=== PATIENT | male | born 1935 | race African-American/Black ===

== ENCOUNTER 2023-12-01 15:39 | Emergency (ER) | payer MEDICARE ==
--- OUTSIDE RECORDS SUMMARY | 2023-12-01 15:44 | XMS REPORT | Continuity of Care Document ---
Author Name Unknown Address [address] [facility] [address] [place] [address] [facility] thconnect Address [address] [facility] [address] [place] [address] Care Team Providers Care Filling Operator Name Role Phone Bertin Wisdom Primary Care Physician [phone] Portillo Donahue Attending Clinician Unavailable Severo Osborne Attending Clinician Unavailable MOISE HERNANDEZ Attending Clinician Unavailable RUSS HULL Attending Clinician Unavailable FARHAT ROSAS Attending Clinician Unavailable Farhat Rosas MD Attending Clinician [phone] OPHELIA MCFADDEN Attending Clinician UnaOPHELIA Juarez Attending Clinician Unavailable 2, [facility] Attending Clinician Unavailable Doctor Unassigned, [place] Attending Clinician U hannahailJessica Minor Attending Clinician Unavailable Mayelin Lucas LVN Attending Clinician Unavailab RUSS Palencia M.D. Attending Clinician Unavailable STEFANY Attending Clinician Unavailable Jesus Coleman Attending Clinician [phone] Severo Osborne Admitting Clinician Unavailable Physician, No Primary or Family Admitting Clinic vasu Unavailable Jessica Ibarra Admitting Clinician Unavailable UNDEFINED Admitting Clinician Unavailable STEFANY Admitting Clinician Unavailable Payers Payer Name Policy Type Policy Number Effective Date Expirati on Date Source [facility] MEDICARE COMPLETE [id number] 2018 00:00:00 2018 00:00:[address] [facility] WELLMED [id number] 2020 00:00:00 [facility] MCR Advantage (HMO-POS) 53 [id number] 2023 00:00:00 [facility] WELLMED/AAR MEDICARE ADVANTAGE [id number] 2020 00:00:00 [facility] [id number] Problems Condition Name Condition Details Condition Category Status Onset Date Resolution Date Last Treatment Date Treating Clinician Comments Source Elevated carcinoemb ryonic antigen (CEA) Elevated carcinoemb ryonic antigen (CEA) Disease Active 5-19 00:00: 00 [facility] Primary hypertensi on Primary hypertensi on Disease Active 04-28 00:00: 00 [facility] Type 2 diabetes mellitus without complicati on, without long-term current use of insulin Type 2 diabetes mellitus without complicati on, without long-term current use of insulin Disease Active 04-28 00:00: 00 [facility] Mixed hyperlipid emia Mixed hyperlipid emia Disease Active 04-28 00:00: 00 [facility] H/O: CVA (cerebrova scular accident) H/O: CVA (cerebrova scular accident) Disease Active 04-28 00:00: 00 [facility] CKD (chronic kidney disease), stage IV CKD (chronic kidney disease), stage IV Disease Active - 00:00: 00 [facility] Fatigue Fatigue Disease Active 3-27 00:00: 00 [facility] Urinary urgency Urinary urgency Disease Active 9-12 00:00: 00 [facility] Nocturia Nocturia Disease Active 01-03 00:00: 00 [facility] Urinary frequency Urinary frequency Disease Active 05-17 00:00: 00 [facility] Elevated prostate specific antigen (PSA) Elevated prostate specific antigen (PSA) Disease Active 05-17 00:00: 00 [facility] Erectile dysfunctio n Erectile dysfunctio n Disease Active 05-17 00:00: 00 [facility] 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 Disease Active 05-17 00:00: 00 [facility] Swallowing problem Swallowing Problem Problem Active 05-14 00:00: 00 [facility] Chronic kidney disease due to type 2 diabetes mellitus Chronic Kidney Disease Due to Type 2 Diabetes Mellitus Problem Active 2019-04 00:00: 00 [facility] Hypertensi ve disorder Hypertensi ve Disorder Problem Active 2019-04 00:00: 00 [facility] Cerebrovas cular accident Cerebrovas cular Accident Problem Active 2019-04 00:00: 00 [facility] Acid reflux Acid Reflux Problem Active 2019-04 00:00: 00 [facility] Kidney disease Kidney Disease Problem Active 2019-04 00:00: 00 [facility] Urinary incontinen ce Urinary Incontinen ce Problem Active 2019-04 00:00: 00 [facility] History of cerebrovas cular accident due to ischemia History of Cerebrovas cular Accident Due to Ischemia Problem Active 2019-04 00:00: 00 [facility] Contractur e of joint of left hand Contractur e of Joint of Left Hand Problem Active 2019-04 0 00:00: 00 [facility] Carcinoma of prostate Carcinoma of Prostate Problem Active 2019-04 00:00: 00 [facility] Diabetes mellitus Diabetes Mellitus Problem Active 2019-04 0 00:00: 00 [facility] Urinary incontinen ce Urinary incontinen ce Disease Active 01-15 00:00: 00 [facility] Polyuria Polyuria Disease Active 09-18 00:00: 00 [facility] Vitamin D deficiency Vitamin D deficiency Disease Active 09-18 00:00: 00 [facility] Voiding dysfunctio n Voiding dysfunctio n Disease Active 09-09 00:00: 00 [facility] 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 ce Disease Active 07-22 00:00: 00 [facility] Urge incontinen ce Urge incontinen ce Disease Active 09-01 00:00: 00 [facility] [id number] Esophageal stenosis Problem [facility] [id number] Decreased hearing of both ears Problem [facility] Multiple nodules of lung Lung nodules Problem [facility] [id number] Mixed hyperlipid emia Problem [facility] [id number] Prostate cancer Problem [facility] [id number] Type 2 diabetes mellitus with hyperglyce izzy Problem [facility] [id number] CKD (chronic kidney disease) stage 4, GFR 15-29 ml/min Problem [facility] [id number] 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 Problem [facility] [id number] History of CVA with residual deficit Problem [facility] [id number] GERD without esophagiti s Problem [facility] [id number] FDC (current) use of insulin Problem [facility] History of rhabdomyol ysis History of rhabdomyol ysis [facility] Urge incontinen ce of urine Urge incontinen ce of urine Problem Active [facility] 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 ce Problem Active [facility] Aftercare following surgery Aftercare following surgery Problem Active [facility] Esophageal perforatio n Esophageal perforatio n Problem Active [facility] Achalasia Achalasia Problem Active [facility] Anemia Anemia Problem Active [facility] CVA (cerebral vascular accident) CVA (cerebral vascular accident) Problem Active [facility] Cataract, senile Cataract, senile Problem Active [facility] Voiding dysfunctio n Voiding dysfunctio n Problem Active [facility] Hyperchole sterolemia Hyperchole sterolemia Problem Active [facility] 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 Problem Active [facility] Erectile dysfunctio n Erectile dysfunctio n Problem Active [facility] Malignant neoplasm of prostate Malignant neoplasm of prostate Problem Active [facility] Monoclonal gammopathy Monoclonal gammopathy Problem Active [facility] Colon polyp Colon polyp Problem Active [facility] Multiple lung nodules Multiple lung nodules Problem Active [facility] Vitamin D deficiency Vitamin D deficiency Problem Active [facility] History of cerebrovas cular accident History of cerebrovas cular accident Problem [facility] History of esophageal stricture History of esophageal stricture Problem [facility] History of hypertensi on History of hypertensi on Problem [facility] Diabetic renal disease Diabetic renal disease Problem Active [facility] Hypertensi on Hypertensi on Problem Active [facility] Leg edema Leg edema Problem Active [facility] Mixed dyslipidem ia Mixed dyslipidem ia Problem Active [facility] 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 Problem Active [facility] Osteopenia Osteopenia Problem Active [facility] Type 2 diabetes mellitus Type 2 diabetes mellitus Problem Active [facility] Elevated PSA Elevated PSA Problem Active [facility] Urinary frequency Urinary frequency Problem Active [facility] Urinary incontinen ce Urinary incontinen ce Problem Active [facility] Polyuria Polyuria Problem Active [facility] Androgen deprivatio n therapy Androgen deprivatio n therapy Problem Active [facility] Chronic kidney disease, stage 3a Chronic kidney disease, stage 3a Problem Active [facility] Allergies, Adverse Reactions, Alerts Allergy Name Allergy Type Status Severity Reaction(s) Onset Date Inactive Date Treating Clinician Comments Source No Known Allergie s DA Active U 09-14 00:00: 00 [facility] No Known Allergie s DA Active U 10-25 00:00: 00 [facility] NO KNOWN ALLERGIE S Drug Class Active [facility] Family History Family Member Diagnosis Comments Start Date Stop Date Sourc e Grandparent Family history of di abetes mellitus [facility] Father Family history of hypertension [facility] Sister Family history of myocardial infarction [facility] Sister Family history of ca rdiac disorder [facility] Social History Social Habit Start Date Stop Date Quantity Comments Source History of Tobacco Use [facility] 2023-08-14 00:00:00 2023-08-14 00:00:00 [facility] Exposure to SARS-CoV-2 (event) 2022-03-11 00:00:00 2022-03-21 09:12:00 Not sure [facility] Tobacco use and exposure 2020-12-11 00:00:00 2020-12-11 00:00:00 Former smokeless tobacco user [facility] Sex assigned at 1935 00:00:00 1935 00:00:00 [facility] Smoking Status Start Date Stop Date Source Tobacco smoking consumption unknown [facility] Former Smoker 2023-11-15 00:00:00 2023-11-15 00:00:00 [facility] Never smoked tobacco [facility] Medications Ordered Medication Name Filled Medication Name Start Date Stop Date Current Medication? Ordering Clinician Indication Dosage Frequency Signature (SIG) Comments Components Source ezetimibe 10 mg tablet 05-03 00:00: 00 05-03 05:59 :00 No [id number] 10mg Take 1 tablet by mouth in the morning. [facility] doxazosin 2 mg tablet 04-28 10:23: 58 Yes 2mg Take 1 tablet by mouth in the morning. [facility] aspirin 81 mg EC tablet 04-28 10:23: 57 Yes 81mg Take 1 tablet by mouth in the morning. [facility] Cholecalcif xiao, Vitamin D3, 50 mcg (2,000 unit) tablet 04-28 10:23: 57 Yes 2000U Take 1 tablet by mouth in the morning. [facility] gemfibroziL 600 mg tablet 04-28 10:23: 57 Yes 600mg Take 1 tablet by mouth 2 (two) times daily before breakfast and dinner. [facility] Insulin Glargine (LANTUS SOLOSTAR U-100 INSULIN) 100 unit/mL (3 mL) injection 04-28 10:23: 57 Yes 50U inject 50 Units under the skin at bedtime. [facility] losartan 50 mg tablet 04-28 10:23: 57 Yes 50mg Take 1 tablet by mouth in the morning. [facility] Insulin Glargine (LANTUS SOLOSTAR U-100 INSULIN) 100 unit/mL (3 mL) injection 04-28 10:23: 57 Yes 50U inject 50 Units under the skin at bedtime. [facility] losartan (Cozaar) 50 MG tablet 2021-04 09:22: 43 Yes losartan 50 mg tablet TAKE 1 TABLET BY MOUTH DAILY [facility] Cholecalcif xiao (Vitamin D3) 50 MCG (1999 [place]) tablet 2021-04 09:22: 43 Yes QD Take by mouth 1 (one) time each day. [facility] doxazosin (Cardura) 2 MG tablet 2021-04 09:21: 16 Yes 1{tbl} QD Take 1 tablet by mouth 1 (one) time each day. [facility] gemfibrozil (Lopid) 600 MG tablet 2021-04 09:21: 16 Yes Q.5D 2 (two) times a day. 300 mg bid [facility] insulin glargine (Lantus SoloStar) 100 UNIT/ML injection 2021-04 09:21: 16 Yes INJECT SUBCUTANEO USLY 50 UNITS ONCE DAILY [facility] aspirin 81 MG EC tablet 2021-04 09:21: 16 Yes 81mg QD Take 81 mg by mouth 1 (one) time each day. [facility] cefTRIAXone (Rocephin) vial 1 g 11-15 19:30: 00 11-15 19:16 :00 No 677 1g [facility] gemfibrozil (Lopid) 600 MG tablet 11-15 12:14: 07 Yes Q.5D 2 (two) times a day. 300 mg bid [facility] insulin glargine (Lantus SoloStar) 100 UNIT/ML injection 11-15 12:14: 07 Yes INJECT SUBCUTANEO USLY 50 UNITS ONCE DAILY [facility] doxazosin (Cardura) 2 MG tablet 11-15 12:14: 06 Yes 1{tbl} QD Take 1 tablet by mouth 1 (one) time each day. [facility] sucralfate (Carafate) 1 GM/10ML suspension 10-27 00:00: 00 Yes TAKE 10 ML BY MOUTH 4 TIMES DAILY BEFORE MEAL(S) FOR 14 DAYS [facility] amoxicillin (Amoxil) 250 MG/5ML suspension 08-03 00:00: 00 Yes TAKE 10 ML BY MOUTH TWICE DAILY FOR 10 DAYS [facility] clarithromy za (Biaxin) 250 MG/5ML suspension 08-03 00:00: 00 Yes TAKE 10 ML BY MOUTH TWICE DAILY FOR 10 DAYS [facility] No known medications 07-19 17:14: 30 No No known medication s [facility] ezetimibe (Zetia) 10 MG tablet 10-22 00:00: 00 Yes 1{tbl} QD Take 1 tablet by mouth 1 (one) time each day. [facility] ezetimibe (Zetia) 10 MG tablet 10-22 00:00: 00 Yes .5{tbl} QD Take 0.5 tablets by mouth 1 (one) time each day. [facility] Simvastatin 40 MG Oral Tablet Simvastatin 40 MG Oral Tablet 12-25 00:00: 00 [facility] Carafate 1 GM/10ML Oral Suspension Carafate 1 GM/10ML Oral Suspension 12-09 00:00: 00 [facility] VESIcare 5 MG Oral Tablet VESIcare 5 MG Oral Tablet 17 00:00: 00 Yes KATHE STARK M.D. 1 QD TAKE 1 TABLET DAILY. [facility] Levaquin 500 MG TABS Levaquin 500 MG TABS - 00:00: 00 Yes [facility] Hydrocodone -Acetaminop hen 5-500 MG TABS Hydrocodone -Acetaminop hen 5-500 MG TABS - 00:00: 00 Yes [facility] Cephalexin 500 MG Oral Capsule Cephalexin 500 MG Oral Capsule - 00:00: 00 Yes [facility] metFORMIN HCl - 1000 MG Oral Tablet metFORMIN HCl - 1000 MG Oral Tablet 1-23 00:00: 00 Yes [facility] Lovastatin 40 MG Oral Tablet Lovastatin 40 MG Oral Tablet 1-14 00:00: 00 [facility] Crestor 10 MG Oral Tablet Crestor 10 MG Oral Tablet 2007-04 2- 00:00: 00 Yes [facility] glipiZIDE ER 10 MG Oral Tablet Extended Release 24 Hour glipiZIDE ER 10 MG Oral Tablet Extended Release 24 Hour 2007-04 1 00:00: 00 Yes [facility] Sulfamethox azole-TMP DS 800-160 MG TABS Sulfamethox azole-TMP DS 800-160 MG TABS 2007-04 0 00:00: 00 Yes [facility] Hyoscyamine Sulfate 0.125 MG Sublingual Tablet Sublingual Hyoscyamine Sulfate 0.125 MG Sublingual Tablet Sublingual 2007-04 0 00:00: 00 Yes KATHE STARK M.D. [address] 1 TABLET UNDER THE TONGUE 3 TIMES DAILY NEEDED. [facility] metFORMIN HCl - 500 MG Oral Tablet metFORMIN HCl - 500 MG Oral Tablet 06 00:00: 00 Yes [facility] Aspirin 81 81 MG Aspirin 81 81 MG No 1{table t} QD Aspirin 81 81 MG Fluzone High-Dose Quad 2020-21 (PF) 240 mcg/0.7 mL IM syringe Fluzone High-Dose Quad 2020-21 (PF) 240 mcg/0.7 mL IM syringe No Fluzone High-Dose Quad 2020-21 (PF) 240 mcg/0.7 mL IM syringe [facility] hydrochloro thiazide 12.5 mg tablet 1 PO qd hydrochloro thiazide 12.5 mg tablet 1 PO qd No hydrochlor othiazide 12.5 mg tablet 1 PO qd [facility] pantoprazol e 40 mg tablet,trevor yed release 1 PO qd pantoprazol e 40 mg tablet,trevor yed release 1 PO qd No pantoprazo le 40 mg tablet,del ayed release 1 PO qd [facility] Lupron Depot (4-Month) 30 MG Intramuscul ar Kit Lupron Depot (4-Month) 30 MG Intramuscul ar Kit Yes [facility] Aspirin 81 MG TABS Aspirin 81 MG TABS Yes [facility] hydroCHLORO thiazide 12.5 MG Oral Tablet hydroCHLORO thiazide 12.5 MG Oral Tablet Yes [facility] Lantus SoloStar 100 UNIT/ML SOLN Lantus SoloStar 100 UNIT/ML SOLN Yes [facility] Pantoprazol e Sodium 40 MG Oral Tablet Delayed Release Pantoprazol e Sodium 40 MG Oral Tablet Delayed Release Yes [facility] Vitamin D 400 UNIT TABS Vitamin D 400 UNIT TABS Yes [facility] Vitamin D3 Vitamin D3 No 1{ table t} QD Vitamin D3 Trelegy Ellipta 100-62.5-25 MCG/ACT Trelegy Ellipta 100-62.5-25 MCG/ACT No 1{puff} QD Trelegy Ellipta 100-62.5-2 5 MCG/ACT Omeprazole 40 MG Omeprazole 40 MG No QD Omeprazole 40 MG Farxiga 5 MG Farxiga 5 MG No 1{table t} QD Farxiga 5 MG Immunizations Ordered Immunization Name Filled Immunization Name Date Status Comments Source influenza, injectable, quadrivalent influenza, injectable, quadrivalent 2020-01-06 00:00:00 Completed [facility] FluAD Quad SD FluAD Quad SD Unknown Completed [facility] FluAD Quad SD FluAD Quad SD Unknown Completed [facility] FluAD Quad SD FluAD Quad SD Unknown Completed [facility] FluAD Quad SD FluAD Quad SD Unknown Completed [facility] FluAD Quad SD FluAD Quad SD Unknown Completed [facility] Fluad (aIIV4) - SDS - 0.5mL Fluad (aIIV4) - SDS - 0.5mL Unknown Completed [facility] Fluad (aIIV4) - SDS - 0.5mL Fluad (aIIV4) - SDS - 0.5mL Unknown Completed [facility] Fluad (aIIV4) - SDS - 0.5mL Fluad (aIIV4) - SDS - 0.5mL Unknown Completed [facility] Fluad (aIIV4) - SDS - 0.5mL Fluad (aIIV4) - SDS - 0.5mL Unknown Completed [facility] Fluad (aIIV4) - SDS - 0.5mL Fluad (aIIV4) - SDS - 0.5mL Unknown Completed [facility] Fluad (aIIV4) - SDS - 0.5mL Fluad (aIIV4) - SDS - 0.5mL Unknown Completed [facility] SARS-COV-2 COVID-19 MODERNA 12+ YRS VACCINE Unknown Completed [facility] SARS-COV-2 COVID-19 MODERNA 12+ YRS VACCINE Unknown Completed [facility] SARS-COV-2 COVID-19 MODERNA 12+ YRS VACCINE Unknown Completed [facility] SARS-COV-2 COVID-19 MODERNA 0.25ML BOOSTER VACCINE Unknown Completed [facility] SARS-COV-2 COVID-19 MODERNA 12+ YRS VACCINE Unknown Completed [facility] SARS-COV-2 COVID-19 MODERNA 12+ YRS VACCINE Unknown Completed [facility] SARS-COV-2 COVID-19 MODERNA 0.25ML BOOSTER VACCINE Unknown Completed [facility] SARS-COV-2 COVID-19 MODERNA 12+ YRS VACCINE Unknown Completed [facility] SARS-COV-2 COVID-19 MODERNA 0.25ML BOOSTER VACCINE Unknown Completed [facility] SARS-COV-2 COVID-19 MODERNA 12+ YRS VACCINE Unknown Completed [facility] SARS-COV-2 COVID-19 MODERNA 12+ YRS VACCINE Unknown Completed [facility] SARS-COV-2 COVID-19 MODERNA 0.25ML BOOSTER VACCINE Unknown Completed [facility] SARS-COV-2 COVID-19 MODERNA 12+ YRS VACCINE Unknown Completed [facility] SARS-COV-2 COVID-19 MODERNA 12+ YRS VACCINE Unknown Completed [facility] SARS-COV-2 COVID-19 MODERNA 0.25ML BOOSTER VACCINE Unknown Completed [facility] SARS-COV-2 COVID-19 MODERNA 12+ YRS VACCINE Unknown Completed [facility] SARS-COV-2 COVID-19 MODERNA 12+ YRS VACCINE Unknown Completed [facility] SARS-COV-2 COVID-19 MODERNA 0.25ML BOOSTER VACCINE Unknown Completed [facility] SARS-COV-2 COVID-19 MODERNA 12+ YRS VACCINE Unknown Completed [facility] SARS-COV-2 COVID-19 MODERNA 12+ YRS VACCINE Unknown Completed [facility] SARS-COV-2 COVID-19 MODERNA 0.25ML BOOSTER VACCINE Unknown Completed [facility] SARS-COV-2 COVID-19 MODERNA 12+ YRS VACCINE Unknown Completed [facility] SARS-COV-2 COVID-19 MODERNA 12+ YRS VACCINE Unknown Completed [facility] SARS-COV-2 COVID-19 MODERNA 0.25ML BOOSTER VACCINE Unknown Completed [facility] SARS-COV-2 COVID-19 MODERNA 12+ YRS VACCINE Unknown Completed [facility] SARS-COV-2 COVID-19 MODERNA 12+ YRS VACCINE Unknown Completed [facility] SARS-COV-2 COVID-19 MODERNA 0.25ML BOOSTER VACCINE Unknown Completed [facility] SARS-COV-2 COVID-19 MODERNA 12+ YRS VACCINE Unknown Completed [facility] SARS-COV-2 COVID-19 MODERNA 12+ YRS VACCINE Unknown Completed [facility] SARS-COV-2 COVID-19 MODERNA 0.25ML BOOSTER VACCINE Unknown Completed [facility] SARS-COV-2 COVID-19 MODERNA 12+ YRS VACCINE Unknown Completed [facility] SARS-COV-2 COVID-19 MODERNA 12+ YRS VACCINE Unknown Completed [facility] SARS-COV-2 COVID-19 MODERNA 0.25ML BOOSTER VACCINE Unknown Completed [facility] Vital Signs Vital Name Observation Time Observation Value Comments S ource height 2023-11-15 10:10:00 64 [in_i] [facility] weight 2023-11-15 10:10:00 172.6 [lb_av] [facility] temperature 2023-11-15 10:10:00 97.3 [degF] [facility] bmi 2023-11-15 10:10:00 29.62 kg/m2 [facility] oximetry 2023-11-15 10:10:00 96 % [facility] blood pressure systolic 2023-11-15 10:10:00 136 mm[Hg] [facility] blood pressure diastolic 2023-11-15 10:10:00 74 mm[Hg] [facility] Systolic blood pressure 2023-08-14 16:58:00 159 mm[Hg] [facility] Diastolic blood pressure 2023-08-14 16:58:00 73 mm[Hg] [facility] Heart rate 2023-08-14 16:58:00 99 /min [facility] Body temperature 2023-08-14 16:58:00 36.33 Elizabeth [facility] Body height 2023-08-14 16:58:00 165.1 cm [facility] Body weight 2023-08-14 16:58:00 74.844 kg [facility] BMI 2023-08-14 16:58:00 27.46 kg/m2 [facility] height 2023-07-13 09:10:00 64 [in_i] [facility] weight 2023-07-13 09:10:00 172.0 [lb_av] [facility] temperature 2023-07-13 09:10:00 97.8 [degF] [facility] bmi 2023-07-13 09:10:00 29.52 kg/m2 [facility] oximetry 2023-07-13 09:10:00 98 % [facility] respiratory rate 2023-07-13 09:10:00 17 /min [facility] blood pressure systolic 2023-07-13 09:10:00 124 mm[Hg] [facility] blood pressure diastolic 2023-07-13 09:10:00 71 mm[Hg] [facility] height 2023-07-13 09:20:00 64 [in_i] [facility] weight 2023-07-13 09:20:00 172.0 [lb_av] [facility] temperature 2023-07-13 09:20:00 97.8 [degF] [facility] [facility] bmi 2023-07-13 09:20:00 29.52 kg/m2 [facility] oximetry 2023-07-13 09:20:00 98 % [facility] respiratory rate 2023-07-13 09:20:00 17 /min [facility] blood pressure systolic 2023-07-13 09:20:00 124 mm[Hg] [facility] blood pressure diastolic 2023-07-13 09:20:00 71 mm[Hg] [facility] Systolic blood pressure 2023-04-28 16:26:00 132 mm[Hg] [facility] Diastolic blood pressure 2023-04-28 16:26:00 84 mm[Hg] [facility] Heart rate 2023-04-28 16:26:00 70 /min [facility] Body temperature 2023-04-28 16:26:00 36.56 Elizabeth [facility] Respiratory rate 2023-04-28 16:26:00 18 /min [facility] Body height 2023-04-28 16:26:00 165.1 cm [facility] Body weight 2023-04-28 16:26:00 81.194 kg [facility] BMI 2023-04-28 16:26:00 29.79 kg/m2 [facility] Oxygen saturation in Arterial blood by Pulse oximetry 2023-04-28 16:26:00 99 /min [facility] Systolic blood pressure 2023-03-20 17:53:00 134 mm[Hg] [facility] Diastolic blood pressure 2023-03-20 17:53:00 68 mm[Hg] [facility] Heart rate 2023-03-20 17:53:00 74 /min [facility] Body temperature 2023-03-20 17:53:00 36.33 Elizabeth [facility] Body height 2023-03-20 17:53:00 162.6 cm [facility] Body weight 2023-03-20 17:53:00 72.576 kg [facility] BMI 2023-03-20 17:53:00 27.46 kg/m2 [facility] height 2023-02-15 09:30:00 64 [in_i] [facility] weight 2023-02-15 09:30:00 172.8 [lb_av] [facility] temperature 2023-02-15 09:30:00 97.2 [degF] [facility] bmi 2023-02-15 09:30:00 29.66 kg/m2 [facility] oximetry 2023-02-15 09:30:00 99 % [facility] respiratory rate 2023-02-15 09:30:00 16 /min [facility] blood pressure systolic 2023-02-15 09:30:00 134 mm[Hg] [facility] blood pressure diastolic 2023-02-15 09:30:00 84 mm[Hg] [facility] height 2022-11-08 08:40:00 64 [in_i] [facility] weight 2022-11-08 08:40:00 173.0 [lb_av] [facility] temperature 2022-11-08 08:40:00 97.6 [degF] [facility] bmi 2022-11-08 08:40:00 29.69 kg/m2 [facility] oximetry 2022-11-08 08:40:00 99 % [facility] respiratory rate 2022-11-08 08:40:00 16 /min [facility] blood pressure systolic 2022-11-08 08:40:00 145 mm[Hg] [facility] blood pressure diastolic 2022-11-08 08:40:00 64 mm[Hg] [facility] height 2022-07-01 09:20:00 64 [in_i] [facility] weight 2022-07-01 09:20:00 173 [lb_av] [facility] temperature 2022-07-01 09:20:00 96.9 [degF] [facility] bmi 2022-07-01 09:20:00 29.69 kg/m2 [facility] oximetry 2022-07-01 09:20:00 98 % [facility] respiratory rate 2022-07-01 09:20:00 16 /min [facility] blood pressure systolic 2022-07-01 09:20:00 138 mm[Hg] [facility] blood pressure diastolic 2022-07-01 09:20:00 72 mm[Hg] [facility] height 2022-07-01 09:20:00 64 [in_i] [facility] weight 2022-07-01 09:20:00 173 [lb_av] [facility] temperature 2022-07-01 09:20:00 96.9 [degF] [facility] bmi 2022-07-01 09:20:00 29.69 kg/m2 [facility] oximetry 2022-07-01 09:20:00 98 % [facility] respiratory rate 2022-07-01 09:20:00 16 /min [facility] blood pressure systolic 2022-07-01 09:20:00 138 mm[Hg] [facility] blood pressure diastolic 2022-07-01 09:20:00 72 mm[Hg] [facility] height 2022-03-30 11:00:00 64 [in_i] [facility] weight 2022-03-30 11:00:00 175.6 [lb_av] [facility] temperature 2022-03-30 11:00:00 97.1 [degF] [facility] bmi 2022-03-30 11:00:00 30.14 kg/m2 [facility] oximetry 2022-03-30 11:00:00 98 % [facility] respiratory rate 2022-03-30 11:00:00 18 /min [facility] blood pressure systolic 2022-03-30 11:00:00 129 mm[Hg] [facility] blood pressure diastolic 2022-03-30 11:00:00 69 mm[Hg] [facility] Systolic blood pressure 2022-03-22 15:17:00 165 mm[Hg] [facility] Diastolic blood pressure 2022-03-22 15:17:00 68 mm[Hg] [facility] Heart rate 2022-03-22 15:17:00 65 /min [facility] Body temperature 2022-03-22 15:17:00 36.44 Elizabeth [facility] Body height 2022-03-22 15:17:00 162.6 cm [facility] Body weight 2022-03-22 15:17:00 72.576 kg [facility] BMI 2022-03-22 15:17:00 27.46 kg/m2 [facility] height 2021-12-29 09:40:00 64 [in_i] [facility] weight 2021-12-29 09:40:00 173 [lb_av] [facility] temperature 2021-12-29 09:40:00 97.6 [degF] [facility] bmi 2021-12-29 09:40:00 29.69 kg/m2 [facility] oximetry 2021-12-29 09:40:00 99 % [facility] respiratory rate 2021-12-29 09:40:00 18 /min [facility] blood pressure systolic 2021-12-29 09:40:00 138 mm[Hg] [facility] blood pressure diastolic 2021-12-29 09:40:00 71 mm[Hg] [facility] Systolic blood pressure 2021-11-15 17:11:00 130 mm[Hg] [facility] Diastolic blood pressure 2021-11-15 17:11:00 73 mm[Hg] [facility] Heart rate 2021-11-15 17:11:00 69 /min [facility] Body temperature 2021-11-15 17:11:00 36.28 Elizabeth [facility] Body height 2021-11-15 17:11:00 162.6 cm [facility] Body weight 2021-11-15 17:11:00 72.576 kg [facility] BMI 2021-11-15 17:11:00 27.46 kg/m2 [facility] height 2021-09-24 10:00:00 64 [in_i] [facility] weight 2021-09-24 10:00:00 174.8 [lb_av] [facility] temperature 2021-09-24 10:00:00 97.2 [degF] [facility] bmi 2021-09-24 10:00:00 30 kg/m2 [facility] oximetry 2021-09-24 10:00:00 97 % [facility] respiratory rate 2021-09-24 10:00:00 18 /min [facility] blood pressure systolic 2021-09-24 10:00:00 133 mm[Hg] [facility] blood pressure diastolic 2021-09-24 10:00:00 76 mm[Hg] [facility] Systolic blood pressure 2021-07-19 22:07:00 151 mm[Hg] [facility] Diastolic blood pressure 2021-07-19 22:07:00 79 mm[Hg] [facility] Heart rate 2021-07-19 22:07:00 76 /min [facility] Body temperature 2021-07-19 22:07:00 36.28 Elizabeth [facility] Body height 2021-07-19 22:07:00 162.6 cm [facility] Body weight 2021-07-19 22:07:00 68.04 kg [facility] BMI 2021-07-19 22:07:00 25.75 kg/m2 [facility] height 2021-06-17 08:50:00 64 [in_i] [facility] weight 2021-06-17 08:50:00 177.9 [lb_av] [facility] temperature 2021-06-17 08:50:00 97.4 [degF] [facility] bmi 2021-06-17 08:50:00 30.53 kg/m2 [facility] oximetry 2021-06-17 08:50:00 99 % [facility] respiratory rate 2021-06-17 08:50:00 18 /min [facility] blood pressure systolic 2021-06-17 08:50:00 138 mm[Hg] [facility] blood pressure diastolic 2021-06-17 08:50:00 67 mm[Hg] [facility] height 2021-06-17 09:00:00 64 [in_i] [facility] weight 2021-06-17 09:00:00 177.9 [lb_av] [facility] temperature 2021-06-17 09:00:00 97.4 [degF] [facility] bmi 2021-06-17 09:00:00 30.53 kg/m2 [facility] oximetry 2021-06-17 09:00:00 99 % [facility] blood pressure systolic 2021-06-17 09:00:00 138 mm[Hg] [facility] blood pressure diastolic 2021-06-17 09:00:00 67 mm[Hg] [facility] Systolic blood pressure 2021-03-22 21:41:00 143 mm[Hg] [facility] Diastolic blood pressure 2021-03-22 21:41:00 70 mm[Hg] [facility] Heart rate 2021-03-22 21:41:00 88 /min [facility] Body temperature 2021-03-22 21:41:00 35.94 Elizabeth [facility] Body height 2021-03-22 21:41:00 162.6 cm [facility] Body weight 2021-03-22 21:41:00 72.576 kg [facility] BMI 2021-03-22 21:41:00 27.46 kg/m2 [facility] height 2021-03-16 11:20:00 64 [in_i] [facility] weight 2021-03-16 11:20:00 174.0 [lb_av] [facility] temperature 2021-03-16 11:20:00 97.0 [degF] [facility] bmi 2021-03-16 11:20:00 29.86 kg/m2 [facility] oximetry 2021-03-16 11:20:00 98 % [facility] respiratory rate 2021-03-16 11:20:00 18 /min [facility] blood pressure systolic 2021-03-16 11:20:00 132 mm[Hg] [facility] blood pressure diastolic 2021-03-16 11:20:00 62 mm[Hg] [facility] BP Diastolic 2020-05-14 00:00:00 62 mm[Hg] [facility] Height 2020-05-14 00:00:00 64 [in_i] [facility] BMI (Body Mass Index) 2020-05-14 00:00:00 30.4 kg/m2 [facility] BP Systolic 2020-05-14 00:00:00 108 mm[Hg] [facility] Body Weight 2020-05-14 00:00:00 2832 [oz_av] [facility] Body mass index (BMI) [Ratio] 2020-08-17 11:27:00 27.46 kg/m2 [facility] Heart Rate 2020-08-17 11:27:00 76 /min Location: L Brachial Artery; [facility] Body temperature 2020-08-17 11:27:00 97.3 [degF] Method: Temporal [facility] Systolic blood pressure 2020-08-17 11:27:00 117 mm[Hg] Location: LUE; Position: Sitting [facility] Diastolic blood pressure 2020-08-17 11:27:00 67 mm[Hg] Location: LUE; Position: Sitting [facility] Body height 2020-08-17 11:27:00 64 [in_us] [facility] Weight 2020-08-17 11:27:00 160 [lb_av] [facility] Systolic blood pressure 2020-05-18 11:09:00 131 mm[Hg] Location: LUE; Position: Sitting [facility] Diastolic blood pressure 2020-05-18 11:09:00 77 mm[Hg] Location: LUE; Position: Sitting [facility] Body height 2020-05-18 11:09:00 64 [in_us] [facility] Weight 2020-05-18 11:09:00 160 [lb_av] [facility] Body mass index (BMI) [Ratio] 2020-05-18 11:09:00 27.46 kg/m2 [facility] Body temperature 2020-05-18 11:09:00 97.4 [degF] Method: Temporal [facility] Heart Rate 2020-05-18 11:09:00 101 /min Location: L Brachial Artery; [facility] Systolic blood pressure 2020-01-16 11:53:00 119 mm[Hg] Location: LUE; Position: Sitting [facility] Diastolic blood pressure 2020-01-16 11:53:00 69 mm[Hg] Location: LUE; Position: Sitting [facility] Body height 2020-01-16 11:53:00 64 [in_us] [facility] Weight 2020-01-16 11:53:00 160 [lb_av] [facility] Body mass index (BMI) [Ratio] 2020-01-16 11:53:00 27.46 kg/m2 [facility] Body temperature 2020-01-16 11:53:00 96.7 [degF] Method: Temporal [facility] Heart Rate 2020-01-16 11:53:00 90 /min Location: L Brachial Artery; [facility] Systolic blood pressure 2019-09-19 16:25:00 144 mm[Hg] Location: LUE; Position: Sitting [facility] Diastolic blood pressure 2019-09-19 16:25:00 74 mm[Hg] Location: LUE; Position: Sitting [facility] Body height 2019-09-19 16:25:00 64 [in_us] [facility] Weight 2019-09-19 16:25:00 160 [lb_av] [facility] Body mass index (BMI) [Ratio] 2019-09-19 16:25:00 27.46 kg/m2 [facility] Heart Rate 2019-09-19 16:25:00 75 /min [facility] Body temperature 2019-09-19 16:25:00 98 [degF] Method: Oral [facility] Procedures Procedure Date / Time Performed Performing Clinician Source URINE CULTURE 2023-08-14 17:49:00 [facility] 2023-08-14 16:24:00 [facility] ANCA SCREEN WITH REFLEX TO TITER 2023-08-14 16:24:00 Della, [facility] ANACHOICE(R) PANEL 1 WITH REFLEXES 2023-08-14 16:24:00 Della, [facility] TESTOSTERONE, FREE, TOTAL 2023-08-14 15:01:00 Della, [facility] POCT URINALYSIS W/O SCOPE 2023-08-14 13:36:00 Della, [facility] COMP. METABOLIC PANEL (70861) 2023-04-28 18:30:00 Rosas [facility] LIPID PANEL (06733)(TOTAL CHOLESTEROL, TRIGLYCERIDES, HDL) 2023-04-28 18:30:00 Rosas [facility] CBC WITH DIFF 2023-04-28 18:30:00 Rosas [facility] GLYCOSYLATED HEMOGLOBIN (A1C) 2023-04-28 18:30:00 [facility] HB ECG ROUTINE & RHYTHM STRIP 2023-04-28 16:30:33 [facility] ASSIGNMENT OF BENEFITS 2023-04-28 16:12:50 Docto r Unassigned, [place] [facility] POCT URINALYSIS W/O SCOPE 2023-03-20 17:55:54 Della, [facility] URINE CULTURE 2023-03-20 17:55:00 Della, [facility] TESTOSTERONE, FREE, TOTAL 2023-03-20 17:29:00 Della, [facility] VITAMIN D 25 HYDROXY 2023-03-20 17:29:00 Della, [facility] POCT URINALYSIS W/O SCOPE 2022-03-21 19:04:00 Della, [facility] TESTOSTERONE, FREE, TOTAL 2022-03-21 15:31:00 Della, [facility] URINE CULTURE 2022-03-21 15:31:00 Della, [facility] POCT URINALYSIS W/O SCOPE 2021-11-15 13:28:00 Della, [facility] POCT URINALYSIS W/O SCOPE 2021-07-19 15:39:00 Della, [facility] URINE CULTURE 2021-03-23 19:18:00 Della, [facility] POCT URINALYSIS W/O SCOPE 2021-03-22 19:03:00 Russ Hull [facility] TESTOSTERONE, FREE, TOTAL 2021-03-22 00:00:00 Della [facility] [QL] TESTOSTERONE, FREE AND TOTAL, LC/MS/MS 2020-08-16 00:00:00 [facility] [QL] CULTURE, URINE, ROUTINE 2020-08-16 00:00:[address] [facility] [address] Tumor imaging subq skull-midthigh 67175-[id number] 2020-05-18 00:00:00 [facility] DEXA Bone Density with WB Composition DX 2020-01-16 00:00:00 [facility] Implantation of Artificial Bladder Sphincter 2005-04-24 00:00:00 [facility] Open Prostatectomy 2005-04-24 00:00:00 [facility] Throat Surgery Procedure [facility] History of Prostatectomy [facility] History of Esophageal dilation [facility] Plan of Care Planned Activity Planned Date Details Comments Source Diagnostic Test Pending 2020-05-18 00:00:[address] Tumor imaging subq skull-midthigh 95294-[id number] [code = 52272-XN] [facility] Encounters Start Date/Time End Date/Time Encounter Type Admission Type Attending Clinicians Care Facility Care Department Encounter ID Source 2023-11-09 09:05:00 [facility] [id number] [facility] 2023-09-19 09:00:00 Inpatient ALYSSA Severo [facility] [id number] [facility] 2022-05-26 10:02:52 Outpatient [facility] [id number] [facility] 2022-04-07 11:07:39 Outpatient [facility] [id number] [facility] 2022-03-28 08:13:02 [facility] [id number] [facility] 2022-03-23 11:12:43 Outpatient [facility] [id number] [facility] 2022-03-22 09:19:21 Outpatient [facility] [id number] [facility] 2022-03-07 14:50:13 Outpatient [facility] [id number] [facility] 2021-06-17 08:37:01 Outpatient Donahue, [place] STLMLC STLMLC [id number] [facility] 2021-05-19 13:30:29 Outpatient Donahue, [place]illo STLMLC STLC [id number] [facility] 2021-05-19 13:19:46 Outpatient Donahue, Portillo STLMLC STLMLC [id number] [facility] 2021-05-19 13:12:47 Outpatient Donahue, Portillo STLMLC STLC [id number] [facility] 2021-05-19 13:12:13 Outpatient Donahue, Portillo STLC STLC [id number] [facility] 2021-05-14 01:05:40 Outpatient MOISE HERNANDEZ [facility] [id number] [facility] 2020-08-29 03:27:02 Outpatient RUSS HULL [facility] [id number] [facility] 2023-12-18 09:00:00 2023-12-18 09:00:00 Outpatient RUSS HULL [facility] [id number] [facility] 2023-11-15 00:00:00 2023-11-15 00:00:00 OFFICE VISIT ESTAB PT LEVEL 4 STLMLC STLC [id number] [facility] 2023-11-03 10:00:00 2023-11-03 10:00:00 Outpatient FARHAT JACKSON [facility] [id number] [facility] 2023-09-15 00:00:00 2023-09-19 10:22:36 Telephone Farhat [facility] [id number] [facility] 2023-08-21 09:43:00 2023-08-21 09:43:00 Outpatient Severo Lugo HCAPM RADI [id number] [facility] 2023-08-14 10:15:00 2023-08-14 10:45:00 Office Visit Russ Hull [address] [id number] [facility] 2023-08-09 10:18:00 2023-08-09 23:59:00 Outpatient OPHELIA MCFADDEN [facility] [id number] [facility] 2023-08-09 13:00:00 2023-08-09 13:00:00 External Contact OPHELIA MCFADDEN EXT MSRDP LOCATION 1..114 [id number] [facility] 2023-07-13 00:00:00 2023-07-13 00:00:00 OFFICE VISIT ESTAB PT LEVEL 4 [facility] [id number] [facility] 2023-07-13 00:00:00 2023-07-13 00:00:00 SUB ANNUAL [facility] WELLNESS VISIT [facility] [id number] [facility] 2023-05-03 14:17:00 2023-05-03 14:17:00 Outpatient Severo Lugo [facility] RADI [id number] [facility] 2023-05-03 00:00:00 2023-05-03 00:00:00 Telephone Farhat Rosas [facility] 1..114 350.1.13.10 [id number] [id number] [facility] 2023-05-02 00:00:00 2023-05-02 00:00:00 Telephone Farhat Rosas [facility] 1..114 350.1.13.10 [id number] [id number] [facility] 2023-04-28 10:30:00 2023-04-28 13:03:21 Outpatient R FARHAT ROSAS [facility] [id number] [facility] 2023-04-28 10:30:00 2023-04-28 13:03:21 Office Visit Farhat Rosas [facility] [id number] 350.1.13.10 [id number] [id number] [facility] 2023-04-28 11:45:00 2023-04-28 13:01:41 Analyst Competitive Intelligence Visit 2, Adc Lab Stacie Rosasammed [facility] [id number] 350.1.13.10 4.2.7.2.686 [id number] [facility] 2023-04-28 00:00:00 2023-04-28 00:00:00 Orders Only Doctor Unassigned, [place] [facility] [id number] 350.1.13.10 4.2.7.2.686 [id number] [facility] 2023-03-20 11:15:00 2023-03-20 11:45:00 Office Visit Russ Hull [address] [id number] [id number] [id number] [facility] 2023-02-15 00:00:00 2023-02-15 00:00:00 OFFICE VISIT ESTAB PT LEVEL 4 STLMLC STLMLC [id number] [facility] 2023-02-06 00:00:00 2023-02-06 00:00:00 (TEL) STLMLC STLMLC [id number] [facility] 2022-12-27 00:00:00 2022-12-27 00:00:00 (TEL) STLMLC STLMLC [id number] [facility] 2022-11-08 00:00:00 2022-11-08 00:00:00 OFFICE VISIT ESTAB PT LEVEL 4 STLMLC STLC [id number] [facility] 2022-10-31 00:00:00 2022-10-31 00:00:00 (TEL) STLMLC STLMLC [id number] [facility] 2022-10-25 19:19:00 2022-10-28 18:49:00 Inpatient EM Jessica Ibarra HCAPM INTE.02 [id number] [facility] 2022-10-25 22:37:00 2022-10-25 22:37:00 Outpatient Sabine Ibarraalexandra HCACL LABO [id number] [facility] 2022-08-15 08:45:00 2022-08-15 08:45:00 Outpatient RUSS HULL [facility] [id number] [facility] 2022-08-10 15:09:00 2022-08-10 23:59:00 Outpatient OPHELIA MCFADDEN [facility] [id number] [facility] 2022-08-10 15:15:00 2022-08-10 15:15:00 External Contact OPHELIA MCFADDEN EXT [facility] LOCATION [id number] [id number] [facility] 2022 11:01:00 2022 23:59:00 Outpatient OPHELIA MCFADDEN [facility] [id number] [facility] 2022 14:00:00 2022 14:00:00 Outpatient OPHELIA MCFADDEN [facility] [id number] [facility] 2022-07-05 00:00:00 2022-07-05 00:00:00 (TEL) [facility] [id number] [facility] 2022-07-01 00:00:00 2022-07-01 00:00:00 OFFICE VISIT ESTAB PT LEVEL 4 [facility] [id number] [facility] 2022-07-01 00:00:00 2022-07-01 00:00:00 SUB ANNUAL [facility] WELLNESS VISIT [facility] [id number] [facility] 2022-05-31 13:47:00 2022-05-31 23:59:00 Outpatient OPHELIA MCFADDEN [facility] [id number] [facility] 2022-05-31 14:00:00 2022-05-31 14:00:00 External Contact OPHELIA MCFADDEN EXT MSRDP LOCATION [id number] [id number] [facility] 2022-03-30 00:00:00 2022-03-30 00:00:00 OFFICE VISIT ESTAB PT LEVEL 4 [facility] [id number] [facility] 2022-03-21 09:45:00 2022-03-21 10:15:00 Office Visit Russ Hull [address] [id number] [id number] [facility] 2022-01-07 09:01:00 2022-01-07 23:59:00 Outpatient OPHELIA MCFADDEN [facility] [id number] [facility] 2022-01-07 09:45:00 2022-01-07 09:45:00 Office Visit OPHELIA MCFADDEN EXT MSRDP LOCATION 1..840.114 350.1.13.58 9.2.7.2.686 [id number] [facility] 2021-12-29 00:00:00 2021-12-29 00:00:00 OFFICE VISIT ESTAB PT LEVEL 4 [facility] [id number] [facility] 2021-12-03 10:18:00 2021-12-03 23:59:00 Outpatient OPHELIA MCFADDEN [facility] [id number] [facility] 2021-12-03 10:45:00 2021-12-03 10:45:00 Office Visit OPHELIA MCFADDEN EXT MSRDP LOCATION 1.2.840.114 350.1.13.58 9.2.7.2.686 [id number] [facility] 2021-11-15 09:00:00 2021-11-15 09:30:00 Office Visit Russ Hull UTP [address] 1.2.840.114 350.1.13.58 9.2.7.2.686 [id number] [facility] 2021-10-27 08:11:00 2021-10-27 23:59:00 Outpatient OPHELIA MCFADDEN [facility] [id number] [facility] 2021-10-27 10:00:00 2021-10-27 10:00:00 Outpatient OPHELIA MCFADDEN [facility] [id number] [facility] 2021-09-24 00:00:00 2021-09-24 00:00:00 OFFICE VISIT ESTAB PT LEVEL 4 [facility] [id number] [facility] 2021-08-27 12:23:00 2021-08-27 23:59:00 Outpatient OPHELIA MCFADDEN [facility] [id number] [facility] 2021-08-27 11:15:00 2021-08-27 11:15:00 Outpatient OPHELIA MCFADDEN [facility] [id number] [facility] 2021-07-19 14:00:00 2021-07-19 14:30:00 Office Visit Russ Hull UTP [address] 1.2.840.114 350.1.13.58 9.2.7.2.686 [id number] [facility] 2021-07-14 00:00:00 2021-07-14 00:00:00 (TEL) STLC STLC [id number] [facility] 2021-06-17 00:00:00 2021-06-17 00:00:00 OFFICE VISIT ESTAB PT LEVEL 4 STLMLC STLC [id number] [facility] 2021-06-17 00:00:00 2021-06-17 00:00:00 SUB ANNUAL [facility] WELLNESS VISIT STLMLC STLMLC [id number] [facility] 2021-06-01 00:00:00 2021-06-01 00:00:00 Telephone Mayelin Lucas Carrie UTP [address] 1.2.840.114 350.1.13.58 9.2.7.2.686 [id number] [facility] 2021-03-22 14:00:00 2021-03-22 16:48:18 Office Visit DellaRuss UTP [address] 1.2.840.114 350.1.13.58 9.2.7.2.686 [id number] [facility] 2021-03-16 00:00:00 2021-03-16 00:00:00 OFFICE VISIT ESTAB PT LEVEL 4 STLMLC STLMLC [id number] [facility] 2021-02-15 00:00:00 2021-02-15 00:00:00 Telephone Della Russ UTP [address] 1.2.840.114 350.1.13.58 9.2.7.2.686 [id number] [facility] 2021-02-10 00:00:00 2021-02-10 00:00:00 (TEL) STLMLC STLMLC [id number] [facility] 2021-01-04 00:00:00 2021-01-04 00:00:00 Telephone Russ Hull ONEAL [address] 1.2.840.114 350.1.13.58 9.2.7.2.686 [id number] [facility] 2020-12-17 00:00:00 2020-12-17 00:00:00 Outpatient STLMLC STLMLC [id number] [facility] 2020-12-17 00:00:00 2020-12-17 00:00:00 Outpatient STLMLC STLMLC [id number] [facility] 2020-10-30 00:00:00 2020-10-30 00:00:00 Outpatient STLMLC STLMLC [id number] [facility] 2020-10-23 00:00:00 2020-10-23 00:00:00 Outpatient STLMLC STLMLC [id number] [facility] 2020-10-19 00:00:00 2020-10-19 00:00:00 Outpatient STLMLC STLMLC [id number] [facility] 2020-09-29 00:00:00 2020-09-29 00:00:00 Outpatient STLMLC STLMLC [id number] [facility] 2020-08-25 00:00:00 2020-08-25 00:00:00 EXT [facility] OP Russ Hull EXT MSRDP LOCATION 1.2.840.114 350.1.13.58 9.2.7.2.686 [id number] [facility] 2020-08-25 00:00:00 2020-08-25 00:00:00 EXT [facility] OP Russ Hull EXT MSRDP LOCATION 1.2.840.114 350.1.13.58 9.2.7.2.686 [id number] [facility] 2020-08-17 10:00:00 2020-08-17 10:00:00 Appointjessica t; RUSS HULL M.D. SHU, TUNG, [facility]. [facility] [id number] [place] [facility] 2020-05-18 10:30:00 2020-05-18 10:30:00 Appointmen t; RUSS HULL M.D. SHU, TUNG, M.D. [facility] [id number] [place] [facility] 2020-05-18 05:16:00 2020-05-18 05:16:00 Outpatient ERICKSON_R [facility] [id number] [address] [facility] 2020-05-14 11:30:00 2020-05-14 11:30:00 Outpatient ERICKSON_R [facility] [id number] [address] [facility] 2020-05-14 00:00:00 2020-05-14 00:00:00 Outpatient Jesus Coleman [facility] [id number] 2020-05-14 00:00:00 2020-05-14 00:00:00 Jesus Coleman, DO: [address], [facility] G, [place] [address] , Ph. [facility], DR. COLEMAN [id number] [facility] 2020-01-16 09:45:00 2020-01-16 09:45:00 Appointjessica kaur; RUSS HULL M.D. SHU, TUNG, M.D. [facility] Urology [facility] [id number] [place] [facility] 2019-09-19 10:00:00 2019-09-19 10:00:00 Appointjessica kaur; RUSS HULL M.D. SHU, TUNG, M.D. [facility] Urology [facility] [id number] [place] [facility] Results Test Description Test Time Test Comments Results Result Co mments Source HEMOGLOBIN [id number] 00:00:00* Test Item Value Reference Range Interpretation Comme nts HEMOGLOBIN A1c (test code = 4548-4) 7.8 % See_Comment H [Automated messa ge] The system which generated this result transmitted reference range: 4.2-5.6 %. The reference range was not used to interpret this result as normal/abnormal. LIPID PANEL WITH REFLEX DIRECT [id number] 00:00:00* Test Item Value Reference Range Interpretation Comme nts CALC LDL CHOL (test code = 26823-9) 142 MG/DL See_Comment H [Automated messa ge] The system which generated this result transmitted reference range: <100 MG/DL. The reference range was not used to interpret this result as normal/abnormal. CHOLESTEROL (test code = 2093-3) 211 MG/DL See_Comment H [Automated messa ge] The system which generated this result transmitted reference range: <200 MG/DL. The reference range was not used to interpret this result as normal/abnormal. HDL CHOLESTEROL (test code = 2085-9) 40 MG/DL See_Comment [Automated messa ge] The system which generated this result transmitted reference range: >39 MG/DL. The reference range was not used to interpret this result as normal/abnormal. RISK RATIO LDL/HDL (test code = 33611-8) 3.55 RATIO See_Comment H [Automated message] The system which generated this result transmitted reference range: <3.55 RATIO. The reference range was not used to interpret this result as normal/abnormal. TRIGLYCERIDES (test code = 2571-8) 154 MG/DL See_Comment H [Automated messa ge] The system which generated this result transmitted reference range: <150 MG/DL. The reference range was not used to interpret this result as normal/abnormal. PATHOLOGIST SMEAR [id number] 00:00:00* Test Item Value Reference Range Interpretation Comme nts BASOPHILS (test code = 37378-5) 0.9 % DIAGNOSIS: (test code = 92203-5) (NOTE) COMMENTS (test code = 62013-3) (NOTE) EOSINOPHILS (test code = 84319-1) 11.3 % HEMATOCRIT (test code = 58804-6) 31.0 % See_Comment L [Automated messa ge] The system which generated this result transmitted reference range: 40.0-51.0 %. The reference range was not used to interpret this result as normal/abnormal. HEMOGLOBIN (test code = 718-7) 10.2 G/DL See_Comment L [Automated messa ge] The system which generated this result transmitted reference range: 13.5-17.0 G/DL. The reference range was not used to interpret this result as normal/abnormal. LYMPHOCYTES (test code = 55076-2) 39.2 % MCH (test code = 18254-3) 26.9 PG See_Comment [Automated messa ge] The system which generated this result transmitted reference range: 25.0-33.0 PG. The reference range was not used to interpret this result as normal/abnormal. MCHC (test code = 38121-8) 32.9 G/DL See_Comment [Automated messa ge] The system which generated this result transmitted reference range: 31.0-36.0 G/DL. The reference range was not used to interpret this result as normal/abnormal. MCV (test code = 27235-6) 81.8 fL See_Comment [Automated messa ge] The system which generated this result transmitted reference range: 80.0-99.0 fL. The reference range was not used to interpret this result as normal/abnormal. MICROSCOPIC DESCRIPTION: (test code = 88016-6) (NOTE) MONOCYTES (test code = 42562-8) 14.5 % NEUTROPHILS (test code = 83080-7) 34.1 % NUCLEATED RBCS (test code = 82086-1) 0.0 /100 WBC'S See_Comment [Automated messa ge] The system which generated this result transmitted reference range: 0.0 /100 WBC'S. The reference range was not used to interpret this result as normal/abnormal. PATHOLOGIST: (test code = 71701-7) (NOTE) PLATELET COUNT (test code = 43816-5) 244 K/UL See_Comment [Automated messa ge] The system which generated this result transmitted reference range: 130-400 K/UL. The reference range was not used to interpret this result as normal/abnormal. RBC (test code = 04979-2) 3.79 M/UL See_Comment L [Automated messa ge] The system which generated this result transmitted reference range: 4.50-6.10 M/UL. The reference range was not used to interpret this result as normal/abnormal. RDW (test code = 82951-4) 15.1 % See_Comment H [Automated messa ge] The system which generated this result transmitted reference range: 11.5-15.0 %. The reference range was not used to interpret this result as normal/abnormal. WBC (test code = 17079-6) 3.4 K/UL See_Comment L [Automated messa ge] The system which generated this result transmitted reference range: 3.5-11.0 K/UL. The reference range was not used to interpret this result as normal/abnormal. ALBUMIN/CREATININE RATIO, RANDOM [id number] 00:00:00* Test Item Value Reference Range Interpretation Comme nts ALBUMIN, URINE, RANDOM (test code = 97909-6) 3.0 MG/DL NOT ESTAB MG/DL CALC ALBUMIN/CREAT, RND (test code = 65424-6) 34 MG/G See_Comment H [Automated messa ge] The system which generated this result transmitted reference range: <30 MG/G. The reference range was not used to interpret this result as normal/abnormal. CREATININE, URINE, CONC. (test code = 2161-8) 87.6 MG/DL NOT ESTAB MG/DL COMPREHENSIVE METABOLIC [id number] 00:00:00* Test Item Value Reference Range Interpretation Comme nts ALBUMIN (test code = 1751-7) 4.1 G/DL See_Comment [Automated Euclid Systemsa ge] The system which generated this result transmitted reference range: 3.5-5.2 G/DL. The reference range was not used to interpret this result as normal/abnormal. ALKALINE PHOSPHATASE (test code = 6768-6) 71 U/L See_Comment [Automated message] The system which generated this result transmitted reference range: 40-125 U/L. The reference range was not used to interpret this result as normal/abnormal. BILIRUBIN, TOTAL (test code = 1975-2) 0.2 MG/DL See_Comment [Automated message] The system which generated this result transmitted reference range: <=1.2 MG/DL. The reference range was not used to interpret this result as normal/abnormal. BUN (test code = 3094-0) 39 MG/DL See_Comment H [Automated messa ge] The system which generated this result transmitted reference range: 8-23 MG/DL. The reference range was not used to interpret this result as normal/abnormal. CALCIUM (test code = 01077-1) 9.9 MG/DL See_Comment [Automated messa ge] The system which generated this result transmitted reference range: 8.5-10.5 MG/DL. The reference range was not used to interpret this result as normal/abnormal. CALC A/G RATIO (test code = 1759-0) 1.2 RATIO See_Comment [Automated Euclid Systemsa ge] The system which generated this result transmitted reference range: 1.0-2.6 RATIO. The reference range was not used to interpret this result as normal/abnormal. CALC BUN/CREAT (test code = 3097-3) 13 RATIO See_Comment [Automated Euclid Systemsa ge] The system which generated this result transmitted reference range: 6-28 RATIO. The reference range was not used to interpret this result as normal/abnormal. CALC GLOBULIN (test code = 29359-1) 3.5 G/DL See_Comment [Automated messa ge] The system which generated this result transmitted reference range: 1.9-3.7 G/DL. The reference range was not used to interpret this result as normal/abnormal. CARBON DIOXIDE (test code = 1963-8) 23 MEQ/L See_Comment [Automated messa ge] The system which generated this result transmitted reference range: 19-31 MEQ/L. The reference range was not used to interpret this result as normal/abnormal. CHLORIDE (test code = 2075-0) 105 MEQ/L See_Comment [Automated messa ge] The system which generated this result transmitted reference range: 95-107 MEQ/L. The reference range was not used to interpret this result as normal/abnormal. CREATININE (test code = 2160-0) 2.90 MG/DL See_Comment H [Automated messa ge] The system which generated this result transmitted reference range: 0.80-1.40 MG/DL. The reference range was not used to interpret this result as normal/abnormal. eGFR (2020 CKD-EPI) (test code = 05277-1) 20 ML/MIN/1.73 See_Comment L [Automated messa ge] The system which generated this result transmitted reference range: >60 ML/MIN/1.73. The reference range was not used to interpret this result as normal/abnormal. GLUCOSE (test code = 1558-6) 80 MG/DL See_Comment [Automated messa ge] The system which generated this result transmitted reference range: 70-99 MG/DL. The reference range was not used to interpret this result as normal/abnormal. POTASSIUM (test code = 2823-3) 5.9 MEQ/L See_Comment H [Automated messa ge] The system which generated this result transmitted reference range: 3.5-5.4 MEQ/L. The reference range was not used to interpret this result as normal/abnormal. PROTEIN, TOTAL (test code = 2885-2) 7.6 G/DL See_Comment [Automated messa ge] The system which generated this result transmitted reference range: 6.1-8.3 G/DL. The reference range was not used to interpret this result as normal/abnormal. AST (test code = 1920-8) 25 U/L See_Comment [Automated messa ge] The system which generated this result transmitted reference range: 9-50 U/L. The reference range was not used to interpret this result as normal/abnormal. ALT (test code = 1742-6) 13 U/L See_Comment [Automated Euclid Systemsa ge] The system which generated this result transmitted reference range: 5-50 U/L. The reference range was not used to interpret this result as normal/abnormal. SODIUM (test code = 2951-2) 139 MEQ/L See_Comment [Automated Euclid Systemsa [employer]] The system which generated this result transmitted reference range: 133-146 MEQ/L. The reference range was not used to interpret this result as normal/abnormal. ANCA SCREEN WITH REFLEX TO [id number] 04:49:00* Test Item Value Reference Range Interpretation Comme nts ANCA SCREEN (test code = 40233-5) NEGATIVE NEGATIVE ANCA Screen incl udes evaluation for p-ANCA, c-ANCA andatypical p-ANCA. A positive ANCA screen reflexes to titerand pattern(s), e.g., cytoplasmic pattern (c-ANCA),perinuclear pattern (p-ANCA), or atypical p-ANCA pattern.c-ANCA and p-ANCA are observed in vasculitis, whereasatypical p-ANCA is observed in IBD (Inflammatory BowelDisease). Atypical p-ANCA is detected in about 55% to 80% ofpatients with ulcerative colitis but only 5% to 25% ofpatients with Crohn's disease. REPORT COMMENT:FASTING:YES RAC (test code = RAC) Performing Organization Information: ? ?Site ID: [id number] ? ?Name: [facility] ? ?Address: [address] [place] [phone] ? ?Director: ANN RICO MD,PHD,[facility] PANEL 1 WITH [id number] 04:06:00* Test Item Value Reference Range Interpretation Comments ANACHOICE(TM) SCREEN (test code = 8061-4) NEGATIVE NEGATIVE A negative ANAch oice(TM) indicates the absence of detectableantibodies to component analytes consisting of dsDNA,Chromatin, SHEET ROCK FINISHER, Sm/SHEET ROCK FINISHER, Sm, SSA, SSB, Sheryl-1, Centromere B,Scl-70 and Ribosomal P. A negative ANAchoice(TM) should beinterpreted in the context of the clinical and laboratoryfindings, and does not rule out autoimmune diseasecharacterized by other autoantibody specificities includingautoimmune hepatitis and primary biliary cirrhosis. For additional information, please refer tohttp://education.Mersimo/faq/FAQ1 77(This link is being provided for information/educationalp urposes only.) RHEUMATOID FACTOR (test code = 52224-0) <14 See_Comment [Automated messa ge] The system which generated this result transmitted reference range: <14 IU/mL. The reference range was not used to interpret this result as normal/abnormal. DNA AB (DS) CRITHIDIA,IFA (test code = 6457-6) NEGATIVE NEGATIVE SM ANTIBODY (test code = 87847-1) <1.0 NEG See_Comment [Automated messa ge] The system which generated this result transmitted reference range: <1.0 NEGATIVE AI. The reference range was not used to interpret this result as normal/abnormal. SM/SHEET ROCK FINISHER ANTIBODY (test code = 46996-1) <1.0 NEG See_Comment [Automated messa ge] The system which generated this result transmitted reference range: <1.0 NEGATIVE AI. The reference range was not used to interpret this result as normal/abnormal. SJOGREN'S ANTIBODY (SS-A) (test code = 13149-9) <1.0 NEG See_Comment [Automated messa ge] The system which generated this result transmitted reference range: <1.0 NEGATIVE AI. The reference range was not used to interpret this result as normal/abnormal. SJOGREN'S ANTIBODY (SS-B) (test code = 54798-5) <1.0 NEG See_Comment [Automated messa ge] The system which generated this result transmitted reference range: <1.0 NEGATIVE AI. The reference range was not used to interpret this result as normal/abnormal. SCL-70 ANTIBODY (test code = 68073-5) <1.0 NEG See_Comment REPORT COMMENT:FASTING:YES [Automated message] The system which generated this result transmitted reference range: <1.0 NEGATIVE AI. The reference range was not used to interpret this result as normal/abnormal. HERMANN (test code = RAC) Performing Organization Information: ? ?Site ID: [id number] ? ?Name: [facility] ? ?Address: [address] [place] [address], [place] [address] ? ?Director: ANN RICO MD,PHD,M BA [place] HealthTestosterone, free, [id number] 13:57:00* Test Item Value Reference Range Interpretation Comments TESTOSTERONE, TOTAL, MS (test code = 2986-8) 35 ng/dL 250-1100 L Men with clinica lly significant hypogonadal symptoms and testosterone valuesrepeatedly in the range of the 200-300 ng/dL or less, may benefit fromtestosterone treatment after adequate risk and benefits counseling. For additional information, please refer totps://education. Bioscan /faq/LST396(This link is being provided for informational/educat ional purposes only.)(Note) This test was developed and its analytical performance characteristics have been determined by [employer]. It has not been cleared or approved by the FDA. This assay has been validated pursuant to the CLIA regulations and is used for clinical purposes. TESTOSTERONE, FREE (test code = 2991-8) 4.3 pg/mL 30.0-135.0 L (Note)This test was developed and its analytical performance characteristics have been determined by [employer]. It has not been cleared or approved by the FDA. This assay has been validated pursuant to the CLIA regulations and is used for clinical purposes. [facility] [id number] [place] [address],[address] [place] [address] [id number] iel Lino Fuller MD, PhD REPORT COMMENT:FASTING:YESL TC ONLY: NURSE COLLECTED - NO SPECIMEN PROVIDED. RAC (test code = RAC) Performing Organization Information: ? ?Site ID: [id number] ? ?Name: [facility] ? ?Address: [address] [place] [address] [place] [address] ? ?Director: CRISSY FULLER MD,PHD Lab Interpretation (test code = 99867-0) Abnormal [place] HealthUrine [id number] 23:30:00* Test Item Value Reference Range Interpretation Comments CULTURE, URINE, ROUTINE (test code = 823457285) SEE NOTE A ?CULTURE, URINE, ROUTINE ? ?Micro Number: ? ? ?[id number] ?Test Status: ? ? ? Final ?Specimen Source: ? Urine ?Specimen Quality: ?Adequate ?Result: ?Greater than 100,000 CFU/mL of Proteus mirabilis ? This organism may show imipenem resistance by ? mechanisms other than a carbapenemase. ?P.mirabilis ?INT ? DALIA ? AMOX/CLAVULANATE ? ? ? S ? ? 4 ? AMPICILLIN ? S ? ? <=2 ? AMP/SULBACTAM ?S ? ? <=2 ? CEFAZOLIN ?NR ? ?<=4 2 ? CEFEPIME ? S ? ? <=1 ? CEFTAZIDIME ?S ? ? <=1 ? CEFTRIAXONE ?S ? ? <=1 ? CIPROFLOXACIN ?S ? ? <=0.25 ? GENTAMICIN ? S ? ? <=1 ? IMIPENEM ? I ? ? 2 ? LEVOFLOXACIN ? S ? ? 0.5 ? NITROFURANTOIN ? R ? ? 64 ? PIP/TAZOBACTAM ? S ? ? <=4 ? TOBRAMYCIN ? S ? ? <=1 ? TRIMETHOPRIM/SULFA ? ? S ? ? <=20 S=Susceptible ?I=Intermediate ?R=Resistant ?* = Not TestedNR = Not Reported ?NN = See Therapy Comments THERAPY COMMENTS ? ?Note 1: ? ?For infections other than uncomplicated UTI ? ?caused by E. coli, K. pneumoniae or P. mirabilis: ? ?Cefazolin is resistant if DALIA > or = 8 mcg/mL. ? ?(Distinguishing susceptible versus intermediate ? ?for isolates with DALIA < or = 4 mcg/mL requires ? ?additional testing.) ? ?Note 2: ? ?For uncomplicated UTI caused by E. coli, ? ?K. pneumoniae or P. mirabilis: Cefazolin is ? ?susceptible if DALIA <32 mcg/mL and predicts ? ?susceptible to the oral agents cefaclor, cefdinir, ? ?cefpodoxime, cefprozil, cefuroxime, cephalexin ? ?and loracarbef. REPORT COMMENT:SPLIT 08/14/2023 FROM [id number]:UNKN OWN RAC (test code = RAC) Performing Organization Information: ? ?Site ID: RGA ? ?Name: [facility] [place] ? ?Address: [address] [place] [phone] ? ?Director: CRISSY PIERCE MD,PHD. Lab Interpretation (test code = 10942-3) Abnormal [id number] 04:36:00* Test Item Value Reference Range Interpretation Comments CEA (test code = 2038-6) 3.0 ng/mL H Non-Smoker: <2.5Smoker: ? ? <5.0 This test was performed using the Siemens chemiluminescent method. Values obtained fromdifferent assay methods cannot be usedinterchangeably. CEA levels, regardless ofvalue, should not be interpreted as absoluteevidence of the presence or absence of disease. REPORT COMMENT:FASTING:YES RAC (test code = RAC) Performing Organization Information: ? ?Site ID: RGA ? ?Name: [facility] [place] ? ?Address: [address] [place] [address] ? ?Director: CRISSY PIERCE MD,PHD. Lab Interpretation (test code = 11302-6) Abnormal [facility] urinalysis w/o [id number] 13:36:55* Test Item Value Reference Range Interpretation Comme nts Color, UA (test code = 4850656) Yellow Clarity, UA (test code = 0389658) Clear Glucose, UA (test code = 9501683) Negative Negative Bilirubin, UA (test code = 7678753) Negative Negative Ketones, UA (test code = 3935770) Negative Spec Grav, UA (test code = 3844340) 1.015 1.000-1.030 Blood, UA (test code = 1362456) Small pH, UA (test code = 3080103) 6.0 5.0-8.5 Protein, UA (test code = 4813855) Negative Negative, Trace, 200(+2)mg/dL, 15/mg/dL Urobilinogen, UA (test code = 2345734) 0.2 See_Comment [Automated Euclid Systemsa ge] The system which generated this result transmitted reference range: 0.2. The reference range was not used to interpret this result as normal/abnormal. Leukocytes, UA (test code = 6722158) Negative Negative, Trace Nitrite, UA (test code = 2072183) Negative Negative, Trace Appearance, Fluid (test code = 9335-1) Clear Lab Interpretation (test code = 02802-6) Abnormal [facility] CHEST W/O [id number] 14:17:00 [facility] [facility] : 1935 Sex: M Name:ZAIN GUEVARA [facility]ly [facility] : 1935 Age/S: 87 / M [address] [address] [place] Unit #: [id number] Loc: [place] [address] Phys: Severo Osborne MD Acct: [id number] Dis Date: [facility] #: [phone] Exam Date: 05/03/2023 1440 FAX #: Reason: SOLITARY PULMONARY NODULE EXAMS: CPT: [id number] CT CHEST W/O CONTRAST 23949 Location Code: S17 EXAMINATION: - CT CHEST W/O CONTRAST CLINICAL INDICA TION: Male, 87 years old with SOLITARY PULMONARY NODULE TECHNIQUE: Axial non- contrast contiguous images were obtained through the chest followed by coronal and sagittal multiplanar reformations. One or more of the following dose reduction techniques were used: Automated exposure control, adjustmentof the mA and/or kV according to patient size, and/or iterative reconstruction. COMPARISON: CT chest October 26, 2022 FINDINGS: Chest: Medical Devices: None. Lymph Nodes: Calcified mediastinal and hilar lymph nodes are likely related to the sequela of prior granulomatous disease. Lungs/Airways/Pleura: Trachea and main bronchi are patent. No evidence for new focal consolidation, pleural effusion, or pneumothorax. Evaluation the lung parenchyma is limited secondary to respiratory motion. There are again innumerable micronodules throughout the lungs, that for the most part may be centrilobular and located within the upper portions of the lungs. There are also may be a mosaic attenuation throughoutthe lungs. Heart/Vessels: Heart is normal in size. Coronary artery calcifications are present. No pericardial effusion. Calcific plaque is present within the thoracic aorta. Soft Tissues: Visualized thyroid gland is normal. No soft tissue abnormality of the chest is demonstrated. Upper Abdomen: Abdomen: Subcentimeter hypodensity in the right lobe of liver is inadequately characterized on this non contrast study. 4 mm nonobstructing stone in the partially imaged left kidney. Possible small hiatal hernia. PAGE 1 Signed Report (CONTINUED) Name: ZAIN GUEVARA [facility] : 1935 Age/S: 87 / M [address] [place] Unit #: [id number] Loc: [place] [address] Phys: Severo Osborne MD Acct: [id number] Dis Date: Status: DEP CLI PHONE #: [phone] Exam Date: 05/03/2023 1440 FAX #: Reason:SOLITARY PULMONARY NODULE EXAMS: CPT: [id number] CT CHEST W/O CONTRAST 53091 (Continued) Bones: No evidence of acute osseous abnormality. IMPRESSION: Evaluation the lung parenchyma is limited secondary to respiratory motion. There are again innumerable micronodules that appear mostly centrilobular in distribution and located within the upper portions of the lungs. These findings may be secondary to an inflammatory process such as hypersensitivity pneumonitis or atypical infection. Recommend further characterization with a dedicated high- resolution CT protocol. Coronary artery calcifications. at 1417 Reported and signed by: Elan Dai M.D. CC: Severo Osborne MD Technologist:PELON MANN CTDI: DLP: Trnscb Date/Time: 05/04/2023 (1417) [email or web address] Orig Print D/T: S: 05/04/2023 (6132) PAGE 2 Signed ReportGlycosylated Hemoglobin (A1C)2023-04-29 00:24:18* Test Item Value Reference Range Interpretation Comme nts HGB A1C (test code = 4548-4) 7.5 % 4.0-5.7 H RASHMI (test code = RASHMI) Reference RangesNormal: <5.7%Prediabetes: 5.7 - 6.4%Diabetes: > 6.5% Lab Interpretation (test code = 93552-6) Abnormal [facility] with [id number] 22:06:20* Test Item Value Reference Range Interpretation Comme nts WBC (test code = 6690-2) 3.37 See_Comment L [Automated messa ge] The system which generated this result transmitted reference range: 4.20 - 10.70 10*3/?L. The reference range was not used to interpret this result as normal/abnormal. RBC (test code = 789-8) 3.65 See_Comment L [Automated messa ge] The system which generated this result transmitted reference range: 4.26 - 5.52 10*6/?L. The reference range was not used to interpret this result as normal/abnormal. HGB (test code = 718-7) 10.1 g/dL 12.2-16.4 L HCT (test code = 4544-3) 29.0 % 38.4-49.3 L MCV (test code = 787-2) 79.5 fL 81.7-95.6 L MCH (test code = 785-6) 27.7 pg 26.1-32.7 MCHC (test code = 786-4) 34.8 g/dL 31.2-35.0 RDW-SD (test code = 78412-0) 43.3 fL 38.5-51.6 RDW-CV (test code = 788-0) 14.9 % 12.1-15.4 PLT (test code = 777-3) 258 See_Comment [Automated messa ge] The system which generated this result transmitted reference range: 150 - 328 10*3/?L. The reference range was not used to interpret this result as normal/abnormal. MPV (test code = 63707-0) 11.5 fL 9.8-13.0 NRBC/100 WBC (test code = 2463705030) 0.0 See_Comment [Automated me ssage] The system which generated this result transmitted reference range: 0.0 - 10.0 /100 WBCs. The reference range was not used to interpret this result as normal/abnormal. NRBC x10^3 (test code = 8796490198) See_Comment [Automated messa ge] The system which generated this result transmitted reference range: 10*3/?L. The reference range was not used to interpret this result as normal/abnormal. GRAN MAT (NEUT) % (test code = 770-8) 37.2 % IMM GRAN % (test code = 0292717588) 0.00 % LYMPH % (test code = 736-9) 41.8 % MONO % (test code = 5905-5) 13.9 % EOS % (test code = 713-8) 5.9 % BASO % (test code = 706-2) 1.2 % GRAN MAT x10^3(ANC) (test code = 1940761997) 1.25 10*3/uL 1.99-6.95 L IMM GRAN x10^3 (test code = 1712353073) 0.00-0.06 LYMPH x10^3 (test code = 731-0) 1.41 10*3/uL 1.09-3.23 MONO x10^3 (test code = 742-7) 0.47 10*3/uL 0.36-1.02 EOS x10^3 (test code = 711-2) 0.20 10*3/uL 0.06-0.53 BASO x10^3 (test code = 704-7) 0.04 10*3/uL 0.01-0.09 Lab Interpretation (test code = 97769-7) Abnormal [facility] with [id number] 22:06:20* Test Item Value Reference Range Interpretation Comme nts WBC (test code = 6690-2) 3.37 See_Comment L [Automated messa ge] The system which generated this result transmitted reference range: 4.20 - 10.70 10*3/?L. The reference range was not used to interpret this result as normal/abnormal. RBC (test code = 789-8) 3.65 See_Comment L [Automated messa ge] The system which generated this result transmitted reference range: 4.26 - 5.52 10*6/?L. The reference range was not used to interpret this result as normal/abnormal. HGB (test code = 718-7) 10.1 g/dL 12.2-16.4 L HCT (test code = 4544-3) 29.0 % 38.4-49.3 L MCV (test code = 787-2) 79.5 fL 81.7-95.6 L MCH (test code = 785-6) 27.7 pg 26.1-32.7 MCHC (test code = 786-4) 34.8 g/dL 31.2-35.0 RDW-SD (test code = 17084-8) 43.3 fL 38.5-51.6 RDW-CV (test code = 788-0) 14.9 % 12.1-15.4 PLT (test code = 777-3) 258 See_Comment [Automated messa ge] The system which generated this result transmitted reference range: 150 - 328 10*3/?L. The reference range was not used to interpret this result as normal/abnormal. MPV (test code = 71631-7) 11.5 fL 9.8-13.0 NRBC/100 WBC (test code = 6774518517) 0.0 See_Comment [Automated me ssage] The system which generated this result transmitted reference range: 0.0 - 10.0 /100 WBCs. The reference range was not used to interpret this result as normal/abnormal. NRBC x10^3 (test code = 7455212165) See_Comment [Automated messa ge] The system which generated this result transmitted reference range: 10*3/?L. The reference range was not used to interpret this result as normal/abnormal. GRAN MAT (NEUT) % (test code = 770-8) 37.2 % IMM GRAN % (test code = 9121508549) 0.00 % LYMPH % (test code = 736-9) 41.8 % MONO % (test code = 5905-5) 13.9 % EOS % (test code = 713-8) 5.9 % BASO % (test code = 706-2) 1.2 % GRAN MAT x10^3(ANC) (test code = 9266285812) 1.25 10*3/uL 1.99-6.95 L IMM GRAN x10^3 (test code = 2200877280) 0.00-0.06 LYMPH x10^3 (test code = 731-0) 1.41 10*3/uL 1.09-3.23 MONO x10^3 (test code = 742-7) 0.47 10*3/uL 0.36-1.02 EOS x10^3 (test code = 711-2) 0.20 10*3/uL 0.06-0.53 BASO x10^3 (test code = 704-7) 0.04 10*3/uL 0.01-0.09 Lab Interpretation (test code = 82401-1) [facility] (84202)(TOTAL CHOLESTEROL, TRIGLYCERIDES, HDL)2023-04-28 19:21:32* Test Item Value Reference Range Interpretation Comme nts CHOL (test code = 4101323876) 180 mg/dL 120-200 HDL (test code = 6130947645) 48 mg/dL >=40 HDLC RATIO (test code = 1702872228) 3.8 <=5.0 TRIG (test code = 7378853711) 111 mg/dL 30-170 LDL CHOL (test code = 19136-6) 110 mg/dL <=160 VLDL (test code = 5229907053) 22 mg/dL 5-60 Lab Interpretation (test cod e = 29276-0) Normal [facility] (29332)(TOTAL CHOLESTEROL, TRIGLYCERIDES, HDL)2023-04-28 19:21:32* Test Item Value Reference Range Interpretation Comme nts CHOL (test code = 2879839846) 180 mg/dL 120-200 HDL (test code = 2354625990) 48 mg/dL >=40 HDLC RATIO (test code = 4616005926) 3.8 <=5.0 TRIG (test code = 6405683863) 111 mg/dL 30-170 LDL CHOL (test code = 94524-8) 110 mg/dL <=160 VLDL (test code = 6548624539) 22 mg/dL 5-60 Lab Interpretation (test cod e = 15432-3) Normal [facility]. Metabolic Panel (09541)2023-04-28 19:20:51* Test Item Value Reference Range Interpretation Comme nts NA (test code = 5460653487) 141 mmol/L 135-145 K (test code = 2040980378) 5.1 mmol/L 3.5-5.0 H CL (test code = 8219347759) 109 mmol/L 98-108 H CO2 TOTAL (test code = 2754040853) 21 mmol/L 23-31 L AGAP (test code = 0470743107) 11 2-16 BUN (test code = 6447776400) 39 mg/dL 7-23 H GLUCOSE (test code = 6485338053) 123 mg/dL 70-110 H CREATININE (test code = 9317707340) 2.40 mg/dL 0.60-1.25 H TOTAL BILI (test code = 8521969011) 0.4 mg/dL 0.1-1.1 CALCIUM (test code = 1685402186) 9.8 mg/dL 8.6-10.6 T PROTEIN (test code = 0686403220) 7.5 g/dL 6.3-8.2 ALBUMIN (test code = 5122907450) 4.0 g/dL 3.5-5.0 ALK PHOS (test code = 4052441817) 82 U/L 34-122 ALTv (test code = 1742-6) 19 U/L 5-50 AST(SGOT) (test code = 6672414441) 34 U/L 13-40 eGFR (test code = 04276-5) 25.6 mL/min/1.73m2 CKD-EPI eGFR (2020). Assuming creatinine has been stable day-to-day for at least three months, the eGFR indicates Category G4 (15 - 29 mL/min/1.73 m2) Lab Interpretation (test code = 62158-8) Abnormal [facility]. Metabolic Panel (75919)2023-04-28 19:20:51* Test Item Value Reference Range Interpretation Comme nts NA (test code = 9096023518) 141 mmol/L 135-145 K (test code = 8560130898) 5.1 mmol/L 3.5-5.0 H CL (test code = 1292574165) 109 mmol/L 98-108 H CO2 TOTAL (test code = 7793433484) 21 mmol/L 23-31 L AGAP (test code = 6518703376) 11 2-16 BUN (test code = 0886634322) 39 mg/dL 7-23 H GLUCOSE (test code = 6821661582) 123 mg/dL 70-110 H CREATININE (test code = 4812185969) 2.40 mg/dL 0.60-1.25 H TOTAL BILI (test code = 2798115136) 0.4 mg/dL 0.1-1.1 CALCIUM (test code = 6533952006) 9.8 mg/dL 8.6-10.6 T PROTEIN (test code = 9117610106) 7.5 g/dL 6.3-8.2 ALBUMIN (test code = 5683052808) 4.0 g/dL 3.5-5.0 ALK PHOS (test code = 1918940682) 82 U/L 34-122 ALTv (test code = 1742-6) 19 U/L 5-50 AST(SGOT) (test code = 9178756412) 34 U/L 13-40 eGFR (test code = 11504-1) 25.6 mL/min/1.73m2 CKD-EPI eGFR (2020). Assuming creatinine has been stable day-to-day for at least three months, the eGFR indicates Category G4 (15 - 29 mL/min/1.73 m2) Lab Interpretation (test code = 23794-2) [facility] pqxiedq9148-72-52 01:29:00* Test Item Value Reference Range Interpretation Comments CULTURE, URINE, ROUTINE (test code = 788740109) SEE NOTE A ?CULTURE, URINE, ROUTINE ? ?Micro Number: ? ? ?[id number] ?Test Status: ? ? ? Final ?Specimen Source: ? Urine ?Specimen Quality: ?Adequate ?Result: ?Greater than 100,000 CFU/mL of Proteus hauseri ? This organism may show imipenem resistance by ? mechanisms other than a carbapenemase. ? Greater than 100,000 CFU/mL of Enterococcus faecalis ?COMMENT: ? Additional non-predominating organism(s) isolated. ? These organisms, commonly found on external and ? internal genitalia, are considered colonizers. No ? further testing performed. ?P. hauseri ? E.faecalis ?INT ? DALIA ?INT ? DALIA ? AMOX/CLAVULANATE ? ? ? S ? ? 8 ?* ? AMPICILLIN ? R ? ? >=32 ? S ? ? <=2 ? AMP/SULBACTAM ?S ? ? 8 ?* ? CEFAZOLIN ?R ? ? >=64 1 ? ? * ? CEFEPIME ? S ? ? <=1 ?* ? CEFTAZIDIME ?S ? ? <=1 ?* ? CEFTRIAXONE ?S ? ? <=1 ?* ? CIPROFLOXACIN ?S ? ? <=0.25 ? ? ? S ? ? <=0.5 ? GENTAMICIN ? S ? ? <=1 ?* ? IMIPENEM ? I ? ? 2 ?* ? LEVOFLOXACIN ? S ? ? <=0.12 ? ? ? S ? ? 1 ? NITROFURANTOIN ? R ? ? 64 ? S ? ? <=16 ? PIP/TAZOBACTAM ? S ? ? <=4 ?* ? TETRACYCLINE ? * ?S ? ? <=1 ? TOBRAMYCIN ? S ? ? <=1 ?* ? TRIMETHOPRIM/SULFA ? ? S ? ? <=20 ? * ? VANCOMYCIN ? * ?S ? ? 1 S=Susceptible ?I=Intermediate ?R=Resistant ?* = Not TestedNR = Not Reported ?NN = See Therapy Comments THERAPY COMMENTS ? ?Note 1: ? ?For uncomplicated UTI caused by E. coli, ? ?K. pneumoniae or P. mirabilis: Cefazolin is ? ?susceptible if DALIA <32 mcg/mL and predicts ? ?susceptible to the oral agents cefaclor, cefdinir, ? ?cefpodoxime, cefprozil, cefuroxime, cephalexin ? ?and loracarbef. REPORT COMMENT:SPLIT 03/20/2023 FROM [id number] RAC (test code = RAC) Performing Organization Information: ? ?Site ID: [facility] ? ?Name: [facility] [place] ? ?Address: [address] [place], [place] [address] ? ?Director: CRISSY PIERCE MD,PHD. Lab Interpretation (test code = 76216-2) Abnormal [place] HealthTestosterone, free, ysoac3976-20-95 18:54:00* Test Item Value Reference Range Interpretation Comments TESTOSTERONE, TOTAL, MS (test code = 2986-8) 24 ng/dL 250-1100 L Men with clinica lly significant hypogonadal symptoms and testosterone valuesrepeatedly in the range of the 200-300 ng/dL or less, may benefit fromtestosterone treatment after adequate risk and benefits counseling. For additional information, please refer tohttps://education.Nekst/faq/XUG140(This link is being provided for informational/educational purposes only.)(Note) This test was developed and its analytical performancecharacteristics have been determined by [employer]. It has notbeen cleared or approved by the FDA. This assay has been validatedpursuant to the CLIA regulations and is used for clinical purposes. TESTOSTERONE, FREE (test code = 2991-8) 4 pg/mL 30.0-135.0 L (Note)This test was developed and its analytical performance characteristics have been determined by [employer]. It has not been cleared or approved by the FDA. This assay has been validated pursuant to the CLIA regulations and is used for clinical purposes. [facility] [id number] [address],[address] [place] [address] [phone] Perez MD REPORT COMMENT:LTC ONLY: NURSE COLLECTED - NO SPECIMEN PROVIDED. RAC (test code = RAC) Performing Organization Information: ? ?Site ID: [id number] ? ?Name: [facility] ? ?Address: [address] [place] [address] [place] [address] ? ?Director: Tala KELLY Lab Interpretation (test code = 95340-7) Abnormal [place] HealthVitamin D 25 sbbjiiq2885-09-15 04:31:00* Test Item Value Reference Range Interpretation Comme nts VITAMIN D,25-OH,TOTAL,I A (test code = 1989-3) 44 ng/mL 30-100 Vitamin D Status ? 25-OH Vitamin D: Deficiency: ?<20 ng/mLInsufficiency: ? 20 - 29 ng/mLOptimal: ? > or = 30 ng/mL For 25-OH Vitamin D testing on patients on D2-supplementation and patients for whom quantitation of D2 and D3 fractions is required, the QuestAssureD(TM)25- OH VIT D, (D2,D3), LC/MS/MS is recommended: order code 68410 (patients >2yrs). See Note 1 Note 1 For additional information, please refer to http://education.Network.Nezasa/ faq/BME282 (This link is being provided for informational/educa tional purposes only.) REPORT COMMENT:LTC ONLY: NURSE COLLECTED - NO SPECIMEN PROVIDED. RAC (test code = RAC) Performing Organization Information: ? ?Site ID: [facility] ? ?Name: [facility] [place] ? ?Address: [address] [place] [phone] ? ?Director: CRISSY PIERCE MD,PHD. [facility] w/o khywa8881-71-16 17:55:54* Test Item Value Reference Range Interpretation Comme nts Color, UA (test code = 8667911) Yellow Clarity, UA (test code = 2972048) Clear Glucose, UA (test code = 3976597) Negative Negative Bilirubin, UA (test code = 9829807) Negative Negative Ketones, UA (test code = 3460989) Negative Spec Grav, UA (test code = 1729217) 1.020 1.000-1.030 Blood, UA (test code = 7608903) Moderate pH, UA (test code = 8307232) 7.5 5.0-8.5 Protein, UA (test code = 2931731) 100(2+)mg/dL Negative, Trace, 200(+2)mg/dL, 15/mg/dL A Urobilinogen, UA (test code = 8305081) 0.2 See_Comment [Automated message] The system which generated this result transmitted reference range: 0.2. The reference range was not used to interpret this result as normal/abnormal. Leukocytes, UA (test code = 1210308) Negative Negative, Trace Nitrite, UA (test code = 4397010) Negative Negative, Trace Appearance, Fluid (test code = 9335-1) Clear Lab Interpretation (test code = 21829-7) [facility]normal [facility], [facility]CROSCOPIC, REFLEX TO [id number] 00:00:00* Test Item Value Reference Range Interpretation Comme nts APPEARANCE (test code = 5767-9) CLOUDY CLEAR A BACTERIA (test code = 36097-9) 1+ NONE SEEN A BILIRUBIN (test code = 5770-3) NEGATIVE NEGATIVE CASTS, HYALINE (test code = 21969-8) NONE SEEN NONE-TRACE COLOR (test code = 5778-6) YELLOW YELLOW-STRAW CRYSTALS (test code = 5782-8) (NOTE) NONE SEEN EPITHELIAL CELLS (test code = 66743-7) 0-5 /HPF See_Comment [Automated messa ge] The system which generated this result transmitted reference range: 0-5 /HPF. The reference range was not used to interpret this result as normal/abnormal. GLUCOSE (test code = 5792-7) NEGATIVE NEGATIVE KETONES (test code = 5797-6) NEGATIVE NEGATIVE LEUKOCYTE ESTERASE (test code = 5799-2) NEGATIVE NEGATIVE NITRITE (test code = 5802-4) NEGATIVE NEGATIVE OCCULT BLOOD (test code = 95727-8) NEGATIVE NEGATIVE OTHER (test code = 50093-3) (NOTE) pH (test code = 5803-2) >=9.0 5.0-9.0 A PROTEIN (test code = 94004-2) 1+ NEGATIVE A RED BLOOD CELLS (test code = 03738-4) 0-2 /HPF See_Comment [Automated messa ge] The system which generated this result transmitted reference range: 0-2 /HPF. The reference range was not used to interpret this result as normal/abnormal. SPECIFIC GRAVITY (test code = 5811-5) 1.012 1.005-1.035 UROBILINOGEN (test code = 63149-8) 0.2 MG/DL See_Comment [Automated messa ge] The system which generated this result transmitted reference range: <=2.0 MG/DL. The reference range was not used to interpret this result as normal/abnormal. WHITE BLOOD CELLS (test code = 98589-0) 0-5 /HPF See_Comment [Automated messa ge] The system which generated this result transmitted reference range: 0-5 /HPF. The reference range was not used to interpret this result as normal/abnormal. ALBUMIN/CREATININE RATIO, RANDOM [id number] 00:00:00* Test Item Value Reference Range Interpretation Comme nts ALBUMIN, URINE, RANDOM (test code = 68843-5) 0.9 MG/DL NOT ESTAB MG/DL CALC ALBUMIN/CREAT, RND (test code = 04420-9) 13 MG/G See_Comment [Automated messa ge] The system which generated this result transmitted reference range: <30 MG/G. The reference range was not used to interpret this result as normal/abnormal. CREATININE, URINE, CONC. (test code = 2161-8) 68.5 MG/DL NOT ESTAB MG/DL URIC [id number] 00:00:00* Test Item Value Reference Range Interpretation Comme nts URIC ACID (test code = 2501-5) 6.7 MG/DL See_Comment [Automated messa ge] The system which generated this result transmitted reference range: 3.7-8.0 MG/DL. The reference range was not used to interpret this result as normal/abnormal. HEMOGLOBIN [id number] 00:00:00* Test Item Value Reference Range Interpretation Comme nts HEMOGLOBIN A1c (test code = 4548-4) 8.1 % See_Comment H [Automated messa ge] The system which generated this result transmitted reference range: 4.2-5.6 %. The reference range was not used to interpret this result as normal/abnormal. LIPID PANEL WITH REFLEX DIRECT [id number] 00:00:00* Test Item Value Reference Range Interpretation Comme nts CALC LDL CHOL (test code = 15705-3) 144 MG/DL See_Comment H [Automated messa ge] The system which generated this result transmitted reference range: <100 MG/DL. The reference range was not used to interpret this result as normal/abnormal. CHOLESTEROL (test code = 2093-3) 217 MG/DL See_Comment H [Automated messa ge] The system which generated this result transmitted reference range: <200 MG/DL. The reference range was not used to interpret this result as normal/abnormal. HDL CHOLESTEROL (test code = 2085-9) 46 MG/DL See_Comment [Automated messa ge] The system which generated this result transmitted reference range: >39 MG/DL. The reference range was not used to interpret this result as normal/abnormal. RISK RATIO LDL/HDL (test code = 25059-0) 3.13 RATIO See_Comment [Automated message] The system which generated this result transmitted reference range: <3.55 RATIO. The reference range was not used to interpret this result as normal/abnormal. TRIGLYCERIDES (test code = 2571-8) 148 MG/DL See_Comment [Automated messa ge] The system which generated this result transmitted reference range: <150 MG/DL. The reference range was not used to interpret this result as normal/abnormal. PATHOLOGIST SMEAR [id number] 00:00:00* Test Item Value Reference Range Interpretation Comme nts BASOPHILS (test code = 52258-9) 0.8 % DIAGNOSIS: (test code = 66006-2) (NOTE) COMMENTS (test code = 74500-7) (NOTE) EOSINOPHILS (test code = 63375-2) 6.1 % HEMATOCRIT (test code = 20113-3) 32.8 % See_Comment L [Automated messa ge] The system which generated this result transmitted reference range: 40.0-51.0 %. The reference range was not used to interpret this result as normal/abnormal. HEMOGLOBIN (test code = 718-7) 11.2 G/DL See_Comment L [Automated messa ge] The system which generated this result transmitted reference range: 13.5-17.0 G/DL. The reference range was not used to interpret this result as normal/abnormal. LYMPHOCYTES (test code = 56585-4) 45.8 % MCH (test code = 59477-5) 27.8 PG See_Comment [Automated messa ge] The system which generated this result transmitted reference range: 25.0-33.0 PG. The reference range was not used to interpret this result as normal/abnormal. MCHC (test code = 39363-0) 34.1 G/DL See_Comment [Automated messa ge] The system which generated this result transmitted reference range: 31.0-36.0 G/DL. The reference range was not used to interpret this result as normal/abnormal. MCV (test code = 31404-2) 81.4 fL See_Comment [Automated messa ge] The system which generated this result transmitted reference range: 80.0-99.0 fL. The reference range was not used to interpret this result as normal/abnormal. MICROSCOPIC DESCRIPTION: (test code = 95657-0) (NOTE) MONOCYTES (test code = 08373-6) 13.0 % NEUTROPHILS (test code = 16256-1) 34.0 % NUCLEATED RBCS (test code = 99781-6) 0.0 /100 WBC'S See_Comment [Automated messa ge] The system which generated this result transmitted reference range: 0.0 /100 WBC'S. The reference range was not used to interpret this result as normal/abnormal. PATHOLOGIST: (test code = 29558-5) (NOTE) PLATELET COUNT (test code = 89384-2) 277 K/UL See_Comment [Automated messa ge] The system which generated this result transmitted reference range: 130-400 K/UL. The reference range was not used to interpret this result as normal/abnormal. RBC (test code = 95871-2) 4.03 M/UL See_Comment L [Automated messa ge] The system which generated this result transmitted reference range: 4.50-6.10 M/UL. The reference range was not used to interpret this result as normal/abnormal. RDW (test code = 48620-2) 14.9 % See_Comment [Automated messa ge] The system which generated this result transmitted reference range: 11.5-15.0 %. The reference range was not used to interpret this result as normal/abnormal. WBC (test code = 03745-0) 3.9 K/UL See_Comment [Automated messa ge] The system which generated this result transmitted reference range: 3.5-11.0 K/UL. The reference range was not used to interpret this result as normal/abnormal. COMPREHENSIVE METABOLIC [id number] 00:00:00* Test Item Value Reference Range Interpretation Comme nts ALBUMIN (test code = 1751-7) 4.2 G/DL See_Comment [Automated messa ge] The system which generated this result transmitted reference range: 3.5-5.2 G/DL. The reference range was not used to interpret this result as normal/abnormal. ALKALINE PHOSPHATASE (test code = 6768-6) 68 U/L See_Comment [Automated message] The system which generated this result transmitted reference range: 40-125 U/L. The reference range was not used to interpret this result as normal/abnormal. BILIRUBIN, TOTAL (test code = 1975-2) <0.2 MG/DL See_Comment [Automated message] The system which generated this result transmitted reference range: <=1.2 MG/DL. The reference range was not used to interpret this result as normal/abnormal. BUN (test code = 3094-0) 34 MG/DL See_Comment H [Automated messa ge] The system which generated this result transmitted reference range: 8-23 MG/DL. The reference range was not used to interpret this result as normal/abnormal. CALCIUM (test code = 66208-3) 9.8 MG/DL See_Comment [Automated messa ge] The system which generated this result transmitted reference range: 8.5-10.5 MG/DL. The reference range was not used to interpret this result as normal/abnormal. CALC A/G RATIO (test code = 1759-0) 1.3 RATIO See_Comment [Automated messa ge] The system which generated this result transmitted reference range: 1.0-2.6 RATIO. The reference range was not used to interpret this result as normal/abnormal. CALC BUN/CREAT (test code = 3097-3) 14 RATIO See_Comment [Automated messa ge] The system which generated this result transmitted reference range: 6-28 RATIO. The reference range was not used to interpret this result as normal/abnormal. CALC GLOBULIN (test code = 20011-2) 3.2 G/DL See_Comment [Automated messa ge] The system which generated this result transmitted reference range: 1.9-3.7 G/DL. The reference range was not used to interpret this result as normal/abnormal. CARBON DIOXIDE (test code = 1963-8) 24 MEQ/L See_Comment [Automated messa ge] The system which generated this result transmitted reference range: 19-31 MEQ/L. The reference range was not used to interpret this result as normal/abnormal. CHLORIDE (test code = 2075-0) 104 MEQ/L See_Comment [Automated messa ge] The system which generated this result transmitted reference range: 95-107 MEQ/L. The reference range was not used to interpret this result as normal/abnormal. CREATININE (test code = 2160-0) 2.38 MG/DL See_Comment H [Automated messa ge] The system which generated this result transmitted reference range: 0.80-1.40 MG/DL. The reference range was not used to interpret this result as normal/abnormal. eGFR (2020 CKD-EPI) (test code = 00984-3) 26 ML/MIN/1.73 See_Comment L [Automated messa ge] The system which generated this result transmitted reference range: >60 ML/MIN/1.73. The reference range was not used to interpret this result as normal/abnormal. GLUCOSE (test code = 1558-6) 181 MG/DL See_Comment H [Automated messa ge] The system which generated this result transmitted reference range: 70-99 MG/DL. The reference range was not used to interpret this result as normal/abnormal. POTASSIUM (test code = 2823-3) 4.9 MEQ/L See_Comment [Automated messa ge] The system which generated this result transmitted reference range: 3.5-5.4 MEQ/L. The reference range was not used to interpret this result as normal/abnormal. PROTEIN, TOTAL (test code = 2885-2) 7.4 G/DL See_Comment [Automated messa ge] The system which generated this result transmitted reference range: 6.1-8.3 G/DL. The reference range was not used to interpret this result as normal/abnormal. AST (test code = 1920-8) 30 U/L See_Comment [Automated messa ge] The system which generated this result transmitted reference range: 9-50 U/L. The reference range was not used to interpret this result as normal/abnormal. ALT (test code = 1742-6) 16 U/L See_Comment [Automated messa ge] The system which generated this result transmitted reference range: 5-50 U/L. The reference range was not used to interpret this result as normal/abnormal. SODIUM (test code = 2951-2) 139 MEQ/L See_Comment [Automated messa ge] The system which generated this result transmitted reference range: 133-146 MEQ/L. The reference range was not used to interpret this result as normal/abnormal. URIC [id number] 00:00:00* Test Item Value Reference Range Interpretation [facility] URIC ACID (test code = 2501-5) 6.8 MG/DL See_Comment [Automated messa ge] The system which generated this result transmitted reference range: 3.7-8.0 MG/DL. The reference range was not used to interpret this result as normal/abnormal. HEMOGLOBIN [id number] 00:00:00* Test Item Value Reference Range Interpretation [facility] HEMOGLOBIN A1c (test code = 4548-4) 8.2 % See_Comment H [Automated messa ge] The system which generated this result transmitted reference range: 4.2-5.6 %. The reference range was not used to interpret this result as normal/abnormal. LIPID PANEL WITH REFLEX DIRECT [id number] 00:00:00* Test Item Value Reference Range Interpretation [facility] CALC LDL CHOL (test code = 46277-6) 132 MG/DL See_Comment H [Automated messa ge] The system which generated this result transmitted reference range: <100 MG/DL. The reference range was not used to interpret this result as normal/abnormal. CHOLESTEROL (test code = 2093-3) 193 MG/DL See_Comment [Automated messa ge] The system which generated this result transmitted reference range: <200 MG/DL. The reference range was not used to interpret this result as normal/abnormal. HDL CHOLESTEROL (test code = 2085-9) 42 MG/DL See_Comment [Automated messa ge] The system which generated this result transmitted reference range: >39 MG/DL. The reference range was not used to interpret this result as normal/abnormal. RISK RATIO LDL/HDL (test code = 90919-4) 3.14 RATIO See_Comment [Automated message] The system which generated this result transmitted reference range: <3.55 RATIO. The reference range was not used to interpret this result as normal/abnormal. TRIGLYCERIDES (test code = 2571-8) 90 MG/DL See_Comment [Automated messa ge] The system which generated this result transmitted reference range: <150 MG/DL. The reference range was not used to interpret this result as normal/abnormal. PATHOLOGIST SMEAR [id number] 00:00:00* Test Item Value Reference Range Interpretation Comme nts BASOPHILS (test code = 30980-6) 1.1 % DIAGNOSIS: (test code = 45363-3) (NOTE) COMMENTS (test code = 72950-4) (NOTE) EOSINOPHILS (test code = 46546-5) 10.7 % HEMATOCRIT (test code = 59771-9) 28.3 % See_Comment L [Automated messa ge] The system which generated this result transmitted reference range: 40.0-51.0 %. The reference range was not used to interpret this result as normal/abnormal. HEMOGLOBIN (test code = 718-7) 10.0 G/DL See_Comment L [Automated messa ge] The system which generated this result transmitted reference range: 13.5-17.0 G/DL. The reference range was not used to interpret this result as normal/abnormal. LYMPHOCYTES (test code = 75711-3) 46.3 % MCH (test code = 57617-7) 27.8 PG See_Comment [Automated messa ge] The system which generated this result transmitted reference range: 25.0-33.0 PG. The reference range was not used to interpret this result as normal/abnormal. MCHC (test code = 81139-7) 35.3 G/DL See_Comment [Automated messa ge] The system which generated this result transmitted reference range: 31.0-36.0 G/DL. The reference range was not used to interpret this result as normal/abnormal. MCV (test code = 51056-2) 78.6 fL See_Comment L [Automated messa ge] The system which generated this result transmitted reference range: 80.0-99.0 fL. The reference range was not used to interpret this result as normal/abnormal. MICROSCOPIC DESCRIPTION: (test code = 21009-2) (NOTE) MONOCYTES (test code = 04595-0) 13.8 % NEUTROPHILS (test code = 70291-8) 28.1 % NUCLEATED RBCS (test code = 32530-8) 0.0 /100 WBC'S See_Comment [Automated messa ge] The system which generated this result transmitted reference range: 0.0 /100 WBC'S. The reference range was not used to interpret this result as normal/abnormal. PATHOLOGIST: (test code = 53523-2) (NOTE) PLATELET COUNT (test code = 51820-3) 260 K/UL See_Comment [Automated messa ge] The system which generated this result transmitted reference range: 130-400 K/UL. The reference range was not used to interpret this result as normal/abnormal. RBC (test code = 22412-9) 3.60 M/UL See_Comment L [Automated messa ge] The system which generated this result transmitted reference range: 4.50-6.10 M/UL. The reference range was not used to interpret this result as normal/abnormal. RDW (test code = 16993-7) 14.8 % See_Comment [Automated messa ge] The system which generated this result transmitted reference range: 11.5-15.0 %. The reference range was not used to interpret this result as normal/abnormal. WBC (test code = 54001-9) 3.5 K/UL See_Comment [Automated messa ge] The system which generated this result transmitted reference range: 3.5-11.0 K/UL. The reference range was not used to interpret this result as normal/abnormal. ALBUMIN/CREATININE RATIO, RANDOM [id number] 00:00:00* Test Item Value Reference Range Interpretation Comme nts ALBUMIN, URINE, RANDOM (test code = 56758-7) 2.0 MG/DL NOT ESTAB MG/DL CALC ALBUMIN/CREAT, RND (test code = 60047-3) 16 MG/G See_Comment [Automated messa ge] The system which generated this result transmitted reference range: <30 MG/G. The reference range was not used to interpret this result as normal/abnormal. CREATININE, URINE, CONC. (test code = 2161-8) 123.7 MG/DL NOT ESTAB MG/DL COMPREHENSIVE METABOLIC [id number] 00:00:00* Test Item Value Reference Range Interpretation Comme nts ALBUMIN (test code = 1751-7) 4.1 G/DL See_Comment [Automated messa ge] The system which generated this result transmitted reference range: 3.5-5.2 G/DL. The reference range was not used to interpret this result as normal/abnormal. ALKALINE PHOSPHATASE (test code = 6768-6) 77 U/L See_Comment [Automated message] The system which generated this result transmitted reference range: 40-125 U/L. The reference range was not used to interpret this result as normal/abnormal. BILIRUBIN, TOTAL (test code = 1975-2) <0.2 MG/DL See_Comment [Automated message] The system which generated this result transmitted reference range: <=1.2 MG/DL. The reference range was not used to interpret this result as normal/abnormal. BUN (test code = 3094-0) 25 MG/DL See_Comment H [Automated messa ge] The system which generated this result transmitted reference range: 8-23 MG/DL. The reference range was not used to interpret this result as normal/abnormal. CALCIUM (test code = 40218-4) 9.4 MG/DL See_Comment [Automated messa ge] The system which generated this result transmitted reference range: 8.5-10.5 MG/DL. The reference range was not used to interpret this result as normal/abnormal. CALC A/G RATIO (test code = 1759-0) 1.3 RATIO See_Comment [Automated messa ge] The system which generated this result transmitted reference range: 1.0-2.6 RATIO. The reference range was not used to interpret this result as normal/abnormal. CALC BUN/CREAT (test code = 3097-3) 10 RATIO See_Comment [Automated messa ge] The system which generated this result transmitted reference range: 6-28 RATIO. The reference range was not used to interpret this result as normal/abnormal. CALC GLOBULIN (test code = 71952-0) 3.1 G/DL See_Comment [Automated messa ge] The system which generated this result transmitted reference range: 1.9-3.7 G/DL. The reference range was not used to interpret this result as normal/abnormal. CARBON DIOXIDE (test code = 1962-8) 20 MEQ/L See_Comment [Automated messa ge] The system which generated this result transmitted reference range: 19-31 MEQ/L. The reference range was not used to interpret this result as normal/abnormal. CHLORIDE (test code = 2075-0) 107 MEQ/L See_Comment [Automated messa ge] The system which generated this result transmitted reference range: 95-107 MEQ/L. The reference range was not used to interpret this result as normal/abnormal. CREATININE (test code = 2160-0) 2.41 MG/DL See_Comment H [Automated messa ge] The system which generated this result transmitted reference range: 0.80-1.40 MG/DL. The reference range was not used to interpret this result as normal/abnormal. eGFR (2020 CKD-EPI) (test code = 27661-2) 26 ML/MIN/1.73 See_Comment L [Automated messa ge] The system which generated this result transmitted reference range: >60 ML/MIN/1.73. The reference range was not used to interpret this result as normal/abnormal. GLUCOSE (test code = 1558-6) 160 MG/DL See_Comment H [Automated messa ge] The system which generated this result transmitted reference range: 70-99 MG/DL. The reference range was not used to interpret this result as normal/abnormal. POTASSIUM (test code = 2823-3) 4.5 MEQ/L See_Comment [Automated messa ge] The system which generated this result transmitted reference range: 3.5-5.4 MEQ/L. The reference range was not used to interpret this result as normal/abnormal. PROTEIN, TOTAL (test code = 2885-2) 7.2 G/DL See_Comment [Automated messa ge] The system which generated this result transmitted reference range: 6.1-8.3 G/DL. The reference range was not used to interpret this result as normal/abnormal. AST (test code = 1920-8) 31 U/L See_Comment [Automated messa ge] The system which generated this result transmitted reference range: 9-50 U/L. The reference range was not used to interpret this result as normal/abnormal. ALT (test code = 1742-6) 17 U/L See_Comment [Automated messa ge] The system which generated this result transmitted reference range: 5-50 U/L. The reference range was not used to interpret this result as normal/abnormal. SODIUM (test code = 2951-2) 140 MEQ/L See_Comment [Automated messa ge] The system which generated this result transmitted reference range: 133-146 MEQ/L. The reference range was not used to interpret this result as normal/abnormal. GLUCOSE BEDSIDE [id number] 17:23:00* Test Item Value Reference Range Interpretation Comme nts GLUCOSE BEDSIDE TESTING (nikki t code = GLUBED) 198 mg/dL 70-110 H GLUCOSE BEDSIDE [id number] 16:40:00* Test Item Value Reference Range Interpretation Comme nts GLUCOSE BEDSIDE TESTING (nikki t code = GLUBED) 175 mg/dL 70-110 H GLUCOSE BEDSIDE [id number] 12:35:00* Test Item Value Reference Range Interpretation Comme nts GLUCOSE BEDSIDE TESTING (nikki t code = GLUBED) 190 mg/dL 70-110 H GLUCOSE BEDSIDE [id number] 11:31:00* Test Item Value Reference Range Interpretation Comme nts GLUCOSE BEDSIDE TESTING (nikki t code = GLUBED) 180 mg/dL 70-110 H CBC W/AUTO [id number] 10:37:00* Test Item Value Reference Range Interpretation Comme nts WHITE BLOOD CELL (test code = WBC) 3.9 K/mm3 3.5-11.0 N RED BLOOD CELL (test code = RBC) 4.01 M/mm3 4.70-6.10 L HEMOGLOBIN (test code = HGB) 10.7 G/DL 12.3-15.9 L HEMATOCRIT (test code = HCT) 31.7 % 35.8-46.7 L MEAN CELL VOLUME (test code = MCV) 79.1 Fl 86.3-98.9 L MEAN CELL HGB (test code = MCH) 26.7 pg 28.9-34.4 L MEAN CELL HGB CONCETRATION (test code = MCHC) 33.8 G/DL 32.1-34.5 N RED CELL DISTRIBUTION WIDTH (test code = RDW) 14.2 SD 11.5-14.5 N PLATELET COUNT (test code = PLT) 229 K/mm3 150-450 N MEAN PLATELET VOLUME (test c ode = MPV) 10.40 fL 7.0-9.6 H NEUTROPHIL % (test code = NT%) 36.9 % 40-76 L IMMATURE GRANULOCYTE % (test code = IG%) 0.0 % 0.0-5.0 N LYMPHOCYTE % (test code = LY%) 35.7 % 20.5-51.1 N MONOCYTE % (test code = MO%) 14.1 % 1.7-9.3 H EOSINOPHIL % (test code = EO%) 12.3 % 0.0-6.0 H BASOPHIL % (test code = BA%) 1.0 % 0.0-2.0 N NUCLEATED RBC % (test code = NRBC%) 0.0 /100WBC% 0.0-1.0 N NEUTROPHIL # (test code = NT#) 1.4 K/mm3 1.8-7.6 L IMMATURE GRANULOCYTE # (test code = IG#) 0.00 x10 3/uL 0.00-0.03 N LYMPHOCYTE # (test code = LY#) 1.4 K/mm3 0.6-3.0 N MONOCYTE # (test code = MO#) 0.6 K/mm3 0.2-1.5 N EOSINOPHIL # (test code = EO#) 0.5 K/mm3 0.0-0.4 H BASOPHIL # (test code = BA#) 0.0 K/mm3 0.0-0.2 N NUCLEATED RBC # (test code = NRBC#) 0.0 K/mm3 0.00-0.01 N MANUAL DIFF REQUIRED (test c ode = MDIFF) NO DIFF/SCN CRITERIA GLUCOSE BEDSIDE [id number] 07:37:00* Test Item Value Reference Range Interpretation Comme nts GLUCOSE BEDSIDE TESTING (nikki t code = GLUBED) 119 mg/dL 70-110 H BASIC METABOLIC [id number] 07:15:00* Test Item Value Reference Range Interpretation Comme nts SODIUM (test code = NA) 136 mmol/L 134-147 N POTASSIUM (test code = K) 5.5 mmol/L 3.4-5.0 H CHLORIDE (test code = CL) 113 mmol/L 100-108 H CARBON DIOXIDE (test code = CO2) 17 mmol/L 21-32 L ANION GAP (test code = GAP) 6.0 GAP calc 4.0-15.0 N GLUCOSE (test code = GLU) 119 MG/DL 70-110 H BLOOD UREA NITROGEN (test code = BUN) 28 MG/DL 7-18 H GLOMERULAR FILTRATION RATE (test code = GFR) 36 estGFR >60 L The Glomerular Filtration Rate is a calculated parameterbased on serum Creatinine, patient age and sex. GFR valuesless than 60 mL/min/1.73 square meters are indicative ofChronic Kidney Disease. Values less than 15 mL/min/1.73square meters indicate Kidney failure. The calculation forGFR is based on the CKD-EPI (2020) calculation. This formulais race indifferent and is the recommended formula for GFRby the National Kidney Foundation for Adults.The GFR will not calculate if the sex is unknown or if thepatient's age is <18 years. CREATININE (test code = CREAT) 1.8 MG/DL 0.8-1.3 H CALCIUM (test code = CA) 9.2 MG/DL 8.5-10.1 N [id number] 07:15:00* Test Item Value Reference Range Interpretation Comme nts MAGNESIUM (test code = MAG) 1.7 MG/DL 1.8-2.4 L - DUP EXTRACRANIAL [id number] 21:55:00 [facility] 1935 Sex: M Name:ZAIN GUEVARA [facility] : 1935 Age/S: 87 / M [address] [place] Unit #: [id number] Loc:[place] [address] Phys: Jessica Ibarra MD Acct: [id number] Dis Date: Status: ADM IN PHONE #: [phone] Exam Date: 10/26/20222144 FAX #: Reason: SYNCOPE? EXAMS: CPT: [id number] DUP EXTRACRANIAL ANNE [address] HISTORY: Syncope TECHNIQUE: Grayscale real-time B-mode imaging with spectral and color flowDoppler analysis was performed of the neck to evaluate the extracranial carotid system. Degree of stenosis is based on velocity criteria as defined by the Society of Radiologist in Ultrasound Consensus Conference Radiology 2003 FINDINGS: The peak systolic velocities and IC/CC ratios are within normal limits bilaterally. There is mild scattered atherosclerotic plaque demonstrated with no hemodynamically significant stenosis. Antegrade flow seen in both vertebral arteries. IMPRESSION: 1. No hemodynamically significant stenosis demonstrated. Electronically Signed by Lb Brown on 10/27/2022 at 2154 Reported and signed by: Ethan Brown M.D. CC: Jessica Ibarra MD Technologist: Theresa Ko Trnscb Date/Time: 10/27/2022 (2154) [id number] PAGE 1 Signed Report Name: ZAIN GUEVARA [facility]ly [facility] : 1935 Age/S: 87 / M [address] [place] Unit #: [id number] Loc: [place] [address] Phys: Jessica Ibarra MD Acct: [id number] Dis Date: Status: ADM IN PHONE #: [phone] Exam Date: 10/26/20222144 FAX #: Reason: SYNCOPE? EXAMS: CPT: [id number] DUP EXTRACRANIAL ANNE [address] (Continued) Orig Print D/T: S: 10/27/2022 (2157) Probe: PAGE 2 Signed Report- RETRO [id number] 21:53:00 [facility] : 1935 Sex: M Name:ZAIN GUEVARA : 1935 Age/S: 87 / M [address] [place] Unit #: [id number] Loc:[place] [address] Phys: Jessica Ibarra MD Acct: [id number] Dis Date: Status: ADM IN PHONE #: [phone] Exam Date: 10/26/20222145 FAX #: Reason: LESTER EXAMS: CPT: [id number] [facility] [address] Location code: H5 Renal Sonogram Indication: LESTER. Comparison: None. Technical factors: Long and short ax is watson scale images were obtained with Doppler and color flow evaluation. Findings: Right kidney:The kidney measures 8.6 x 4.4 x 4.8 cm. No hydronephrosis or perirenal fluid collection. Renal cortical thickness of 1.2 cm is normal. Parenchymal echogenicity is normal. No evidence of renal cyst ormass. Left kidney: The kidney measures 9 x 4.5 x 4.4 cm. No hydronephrosis or perirenal fluid collection. Renal cortical thickness of 0.8 cm is decreased Parenchymal echogenicity is normal. No evidence of renal cyst or mass. Impression: 1. Left renal cortical thinning with normal echogenicity. The right kidney is unremarkable t 2152 Reported and signed by: Dung Mora M.D. CC: Jessica Ibarra MD Technologist: Theresa Ko Trndeb Date/Time: 10/27/2022 (2152) [id number].[id number] PAGE 1 Signed Report Name: ZAIN GUEVARA : 1935 Age/S: 87 / M [address] [place] Unit #: [id number] Loc: [place] [address] Phys: Jessica Ibarra MD Acct: [id number] Dis Date: Status: ADM IN PHONE #: [phone] Exam Date: 10/26/20222145 FAX #: Reason: LESTER EXAMS: CPT: [id number] [facility] [address] (Continued) Orig Print D/T: S: 10/27/2022 (2155) Probe: PAGE 2 Signed ReportGLUCOSE BEDSIDE [id number] 21:02:00* Test Item Value Reference Range Interpretation Comme nts GLUCOSE BEDSIDE TESTING (nikki t code = GLUBED) 222 mg/dL 70-110 H GLUCOSE BEDSIDE [id number] 16:41:00* Test Item Value Reference Range Interpretation Comme nts GLUCOSE BEDSIDE TESTING (nikki t code = GLUBED) 124 mg/dL 70-110 H COVID 19 INHOUSE [id number] 13:59:00* Test Item Value Reference Range Interpretation Comme nts COVID 19 INHOUSE AG (test code = [id number]) NEGATIVE Negative Per agricultural researcher , negative results should be treated aspresumptive and, if inconsistent with clinical signs andsymptoms or necessary for patient management, should betested with an alternative molecular assay. Negative resultsdo not preclude SARS-CoV-2 infection and should not be usedas the sole basis for patient management decisions. Negative results should be considered in the context of apatient's recent exposures, history, presence of clinicalsigns and symptoms consistent with COVID-19. GLUCOSE BEDSIDE [id number] 12:17:00* Test Item Value Reference Range Interpretation Comme nts GLUCOSE BEDSIDE TESTING (nikki t code = GLUBED) 163 mg/dL 70-110 H GLUCOSE BEDSIDE [id number] 09:07:00* Test Item Value Reference Range Interpretation Comme nts GLUCOSE BEDSIDE TESTING (nikki t code = GLUBED) 152 mg/dL 70-110 H BASIC METABOLIC [id number] 05:30:00* Test Item Value Reference Range Interpretation Comme nts SODIUM (test code = NA) 140 mmol/L 134-147 N POTASSIUM (test code = K) 5.0 mmol/L 3.4-5.0 N CHLORIDE (test code = CL) 111 mmol/L 100-108 H CARBON DIOXIDE (test code = CO2) 22 mmol/L 21-32 N ANION GAP (test code = GAP) 7.0 GAP calc 4.0-15.0 N GLUCOSE (test code = GLU) 116 MG/DL 70-110 H BLOOD UREA NITROGEN (test code = BUN) 31 MG/DL 7-18 H GLOMERULAR FILTRATION RATE (test code = GFR) 28 estGFR >60 L The Glomerular Filtration Rate is a calculated parameterbased on serum Creatinine, patient age and sex. GFR valuesless than 60 mL/min/1.73 square meters are indicative ofChronic Kidney Disease. Values less than 15 mL/min/1.73square meters indicate Kidney failure. The calculation forGFR is based on the CKD-EPI (202) calculation. This formulais race indifferent and is the recommended formula for GFRby the National Kidney Foundation for Adults.The GFR will not calculate if the sex is unknown or if thepatient's age is <18 years. CREATININE (test code = CREAT) 2.2 MG/DL 0.8-1.3 H CALCIUM (test code = CA) 9.4 MG/DL 8.5-10.1 N [id number] 05:30:00* Test Item Value Reference Range Interpretation Comme nts MAGNESIUM (test code = MAG) 2.0 MG/DL 1.8-2.4 N CBC W/AUTO [id number] 05:15:00* Test Item Value Reference Range Interpretation Comme nts WHITE BLOOD CELL (test code = WBC) 3.9 K/mm3 3.5-11.0 N RED BLOOD CELL (test code = RBC) 3.76 M/mm3 4.70-6.10 L HEMOGLOBIN (test code = HGB) 10.0 G/DL 12.3-15.9 L HEMATOCRIT (test code = HCT) 29.0 % 35.8-46.7 L MEAN CELL VOLUME (test code = MCV) 77.1 Fl 86.3-98.9 L MEAN CELL HGB (test code = MCH) 26.6 pg 28.9-34.4 L MEAN CELL HGB CONCETRATION (test code = MCHC) 34.5 G/DL 32.1-34.5 N RED CELL DISTRIBUTION WIDTH (test code = RDW) 14.3 SD 11.5-14.5 N PLATELET COUNT (test code = PLT) 241 K/mm3 150-450 N MEAN PLATELET VOLUME (test c ode = MPV) 10.40 fL 7.0-9.6 H NEUTROPHIL % (test code = NT%) 30.6 % 40-76 L IMMATURE GRANULOCYTE % (test code = IG%) 0.0 % 0.0-5.0 N LYMPHOCYTE % (test code = LY%) 44.2 % 20.5-51.1 N MONOCYTE % (test code = MO%) 12.5 % 1.7-9.3 H EOSINOPHIL % (test code = EO%) 11.9 % 0.0-6.0 H BASOPHIL % (test code = BA%) 0.8 % 0.0-2.0 N NUCLEATED RBC % (test code = NRBC%) 0.0 /100WBC% 0.0-1.0 N NEUTROPHIL # (test code = NT#) 1.2 K/mm3 1.8-7.6 L IMMATURE GRANULOCYTE # (test code = IG#) 0.00 x10 3/uL 0.00-0.03 N LYMPHOCYTE # (test code = LY#) 1.7 K/mm3 0.6-3.0 N MONOCYTE # (test code = MO#) 0.5 K/mm3 0.2-1.5 N EOSINOPHIL # (test code = EO#) 0.5 K/mm3 0.0-0.4 H BASOPHIL # (test code = BA#) 0.0 K/mm3 0.0-0.2 N NUCLEATED RBC # (test code = NRBC#) 0.0 K/mm3 0.00-0.01 N MANUAL DIFF REQUIRED (test c ode = MDIFF) NO DIFF/SCN CRITERIA GLUCOSE BEDSIDE [id number] 20:26:00* Test Item Value Reference Range Interpretation Comme nts GLUCOSE BEDSIDE TESTING (nikki t code = GLUBED) 142 mg/dL 70-110 H GLUCOSE BEDSIDE [id number] 17:48:00* Test Item Value Reference Range Interpretation Comme nts GLUCOSE BEDSIDE TESTING (nikki t code = GLUBED) 192 mg/dL 70-110 H - CT CHEST W/O [id number] 17:47:00 [facility] 1935 Sex: M Name:ZAIN GUEVARA [place] : 1935 Age/S: 87 / M [address] [place] Unit #: [id number] Loc:[place] [address] Phys: Jessica Ibarra MD Acct: [id number] Dis Date: Status: ADM IN PHONE #: [phone] Exam Date: 10/26/2022 1726 FAX #: Reason: r/o pneumonia EXAMS: CPT: [id number] CT CHEST W/OCONTRAST 23378 Exam: CT of the thorax without contrast Location: H24 HISTORY: , r/o pneumonia, COMP ARISON: Correlation with CT cervical spine findings from 10/25/2022 TECHNIQUE: Axial images of the thorax were obtained without contrast. Images were reformatted to create coronal and sagittal reconstructions . One or more of the following dose reduction techniques were used: Automated exposure control, adjustment of the mA and/or kV according to patient size, and/or utilization of iterative reconstruction technique. DLP: mGy-cm. FINDINGS: Diffuse scattered nodules are identified throughout the upper lungs is also involving the right middle lobe and to lesser extent the lower lobes. Nodules measure no more than 0.4 cm. No further airspace densities are seen. There is a calcified nodule in the right middle lobe along the diaphragmatic leaflet measuring 0.5 cm. There are no pleural effusions. There is no bronchiectasis. Heart is normal in size. Coronary artery calcifications are present. There is elongation of the thoracic aorta. The unopacified pulmonary trunk is within normal limits. Borderline enlarged right paratracheal lymph node measures up to 0.8 cm. Few calcified lymph nodes are also identified within the mediastinum. Visualized intra- abdominal contents are unremarkable. Visualized skeletal structures are unremarkable. No discrete osteolytic or osteosclerotic lesions are seen. IMPRESSION: 1. Scattered subcentimeter nodules predominantly in the upper lungs most likely representing atypical infectious/inflammatory etiology. 2. Old granulomatous disease. PAGE 1 Signed Report (CONTINUED) Name: ZAIN GUEVARA [place] : 1935 Age/S: 87 / M [address] [place] Unit #: [id number] Loc: [place] [address] Phys: Jessica Ibarra MD Acct: [id number] Dis Date: Status: ADM IN PHONE #: [phone] Exam Date: 10/26/2022 1726 FAX #: Reason: r/o pneumonia EXAMS: CPT:[id number] CT CHEST W/O CONTRAST 10728 (Continued) at 1747 Reported and signed by: Francesco Vidal M.D. CC: Jessica Ibarra MD Technologist:Waqar Stearns CTDI: DLP: Trnscb Date/Time: 10/26/2022 (174) t.[email or web address] Orig Print D/T: S: 10/26/2022 (0669)PAGE 2 Signed ReportBASIC METABOLIC [id number] 14:50:00* Test Item Value Reference Range Interpretation Comme nts SODIUM (test code = NA) 137 mmol/L 134-147 N POTASSIUM (test code = K) 5.1 mmol/L 3.4-5.0 H CHLORIDE (test code = CL) 107 mmol/L 100-108 N CARBON DIOXIDE (test code = CO2) 23 mmol/L 21-32 ANION GAP (test code = GAP) 7.0 GAP calc 4.0-15.0 N GLUCOSE (test code = GLU) 156 MG/DL 70-110 H BLOOD UREA NITROGEN (test code = BUN) 36 MG/DL 7-18 H GLOMERULAR FILTRATION RATE (test code = GFR) 26 estGFR >60 L The Glomerular Filtration Rate is a calculated parameterbased on serum Creatinine, patient age and sex. GFR valuesless than 60 mL/min/1.73 square meters are indicative ofChronic Kidney Disease. Values less than 15 mL/min/1.73square meters indicate Kidney failure. The calculation forGFR is based on the CKD-EPI (2020) calculation. This formulais race indifferent and is the recommended formula for GFRby the National Kidney Foundation for Adults.The GFR will not calculate if the sex is unknown or if thepatient's age is <18 years. CREATININE (test code = CREAT) 2.4 MG/DL 0.8-1.3 H CALCIUM (test code = CA) 9.2 MG/DL 8.5-10.1 N GLUCOSE BEDSIDE [id number] 11:44:00* Test Item Value Reference Range Interpretation Comme nts GLUCOSE BEDSIDE TESTING (nikki t code = GLUBED) 144 mg/dL 70-110 H CBC W/AUTO [id number] 04:26:00* Test Item Value Reference Range Interpretation Comme nts WHITE BLOOD CELL (test code = WBC) 4.4 K/mm3 3.5-11.0 N RED BLOOD CELL (test code = RBC) 3.72 M/mm3 4.70-6.10 L HEMOGLOBIN (test code = HGB) 9.9 G/DL 12.3-15.9 L HEMATOCRIT (test code = HCT) 28.6 % 35.8-46.7 L MEAN CELL VOLUME (test code = MCV) 76.9 Fl 86.3-98.9 L MEAN CELL HGB (test code = MCH) 26.6 pg 28.9-34.4 L MEAN CELL HGB CONCETRATION (test code = MCHC) 34.6 G/DL 32.1-34.5 H RED CELL DISTRIBUTION WIDTH (test code = RDW) 14.2 SD 11.5-14.5 N PLATELET COUNT (test code = PLT) 243 K/mm3 150-450 N MEAN PLATELET VOLUME (test c ode = MPV) 10.30 fL 7.0-9.6 H NEUTROPHIL % (test code = NT%) 47.2 % 40-76 IMMATURE GRANULOCYTE % (test code = IG%) 0.5 % 0.0-5.0 N LYMPHOCYTE % (test code = LY%) 28.5 % 20.5-51.1 N MONOCYTE % (test code = MO%) 14.7 % 1.7-9.3 H EOSINOPHIL % (test code = EO%) 8.6 % 0.0-6.0 H BASOPHIL % (test code = BA%) 0.5 % 0.0-2.0 N NUCLEATED RBC % (test code = NRBC%) 0.0 /100WBC% 0.0-1.0 N NEUTROPHIL # (test code = NT#) 2.1 K/mm3 1.8-7.6 N IMMATURE GRANULOCYTE # (test code = IG#) 0.02 x10 3/uL 0.00-0.03 N LYMPHOCYTE # (test code = LY#) 1.3 K/mm3 0.6-3.0 N MONOCYTE # (test code = MO#) 0.7 K/mm3 0.2-1.5 N EOSINOPHIL # (test code = EO#) 0.4 K/mm3 0.0-0.4 N BASOPHIL # (test code = BA#) 0.0 K/mm3 0.0-0.2 N NUCLEATED RBC # (test code = NRBC#) 0.0 K/mm3 0.00-0.01 N MANUAL DIFF REQUIRED (test c ode = MDIFF) NO DIFF/SCN CRITERIA CBC W/AUTO [id number] 23:05:00* Test Item Value Reference Range Interpretation Comme nts WHITE BLOOD CELL (test code = WBC) 4.6 K/mm3 3.5-11.0 N RED BLOOD CELL (test code = RBC) 3.49 M/mm3 4.70-6.10 L HEMOGLOBIN (test code = HGB) 9.4 G/DL 12.3-15.9 L HEMATOCRIT (test code = HCT) 27.6 % 35.8-46.7 L MEAN CELL VOLUME (test code = MCV) 79.1 Fl 86.3-98.9 L MEAN CELL HGB (test code = MCH) 26.9 pg 28.9-34.4 L MEAN CELL HGB CONCETRATION (test code = MCHC) 34.1 G/DL 32.1-34.5 N RED CELL DISTRIBUTION WIDTH (test code = RDW) 14.3 SD 11.5-14.5 N PLATELET COUNT (test code = PLT) 171 K/mm3 150-450 N MEAN PLATELET VOLUME (test c ode = MPV) 10.50 fL 7.0-9.6 H NEUTROPHIL % (test code = NT%) 58.4 % 40-76 N IMMATURE GRANULOCYTE % (test code = IG%) 0.2 % 0.0-5.0 N LYMPHOCYTE % (test code = LY%) 26.6 % 20.5-51.1 N MONOCYTE % (test code = MO%) 10.7 % 1.7-9.3 H EOSINOPHIL % (test code = EO%) 3.9 % 0.0-6.0 N BASOPHIL % (test code = BA%) 0.2 % 0.0-2.0 N NUCLEATED RBC % (test code = NRBC%) 0.0 /100WBC% 0.0-1.0 N NEUTROPHIL # (test code = NT#) 2.7 K/mm3 1.8-7.6 N IMMATURE GRANULOCYTE # (test code = IG#) 0.01 x10 3/uL 0.00-0.03 N LYMPHOCYTE # (test code = LY#) 1.2 K/mm3 0.6-3.0 N MONOCYTE # (test code = MO#) 0.5 K/mm3 0.2-1.5 N EOSINOPHIL # (test code = EO#) 0.2 K/mm3 0.0-0.4 N BASOPHIL # (test code = BA#) 0.0 K/mm3 0.0-0.2 N NUCLEATED RBC # (test code = NRBC#) 0.0 K/mm3 0.00-0.01 N MANUAL DIFF REQUIRED (test c ode = MDIFF) NO DIFF/SCN CRITERIA BASIC METABOLIC [id number] 21:02:00* Test Item Value Reference Range Interpretation Comme nts SODIUM (test code = NA) 140 mmol/L 134-147 N POTASSIUM (test code = K) 5.0 mmol/L 3.4-5.0 N CHLORIDE (test code = CL) 111 mmol/L 100-108 H CARBON DIOXIDE (test code = CO2) 18 mmol/L 21-32 L ANION GAP (test code = GAP) 11.0 GAP calc 4.0-15.0 N GLUCOSE (test code = GLU) 129 MG/DL 70-110 H BLOOD UREA NITROGEN (test code = BUN) 38 MG/DL 7-18 H GLOMERULAR FILTRATION RATE (test code = GFR) 22 estGFR >60 L The Glomerular Filtration Rate is a calculated parameterbased on serum Creatinine, patient age and sex. GFR valuesless than 60 mL/min/1.73 square meters are indicative ofChronic Kidney Disease. Values less than 15 mL/min/1.73square meters indicate Kidney failure. The calculation forGFR is based on the CKD-EPI (2020) calculation. This formulais race indifferent and is the recommended formula for GFRby the National Kidney Foundation for Adults.The GFR will not calculate if the sex is unknown or if thepatient's age is <18 years. CREATININE (test code = CREAT) 2.7 MG/DL 0.8-1.3 H CALCIUM (test code = CA) 9.2 MG/DL 8.5-10.1 N TROP-I HIGH [id number] 20:21:00* Test Item Value Reference Range Interpretation Comme nts TROP-I HIGH SENSITIVITY (test code = TROPIHS) 194.6 ng/L 0-78 HH ng/LCAUTION: Uni ts of the current test methodology (ng/L) differfrom the prior test methodology (ng/mL) by a factor of 1000. 99th Percentile Upper Reference Limit (URL):Females: 54 ng/LMales: 79 ng/L In order to distinguish acute elevations of high sensitivitytroponin from other clinical conditions, the FourthUniversal Definition of Myocardial Infarction stressesclinical assessment and the demonstration of a rise and/orfall in serial troponin results above the URL. Results from different methodologies should not be comparedto one another as quantitative results and URLs may varyby method. CREATINE KINASE (CK)2022-10-25 20:21:00* Test Item Value Reference Range Interpretation Comme [facility] CREATINE KINASE (CK) (test c ode = CK) 301 Unit/L 26-192 H - XR CHEST 1 [id number] 19:28:00 [facility] 1935 Sex: M Name:ZAIN GUEVARA [place] : 1935 Age/S: 87 / M [address] [place] Unit #: [id number] Loc:[place] [address] Phys: Jason Mathews MD Acct: [id number] Dis Date: Status: ADM IN PHONE #: [phone] Exam Date: 10/25/2022717 FAX #: Reason: AbNL lung on CT neck EXAMS: CPT: [id number] XR CHEST 1 V 18814 Fluoro Time: DAP (Gy m2): Air Kerma (mGy): EXAM: AP Chest LOCATION: H 12 HISTORY: AbNL lung on CT neck COMPARISON: None. FINDINGS: The lungs are clear. No infiltrate or effusion is seen. No apical nodules are seen. The pulmonary vasculature is normal. The heart size is enlarged. Atherosclerosis involves the aorta. The mediastinal silhouette is unremarkable. The bony thorax is intactwith degenerative changes noted. IMPRESSION: No acute disease. at 1928 Reported and signed by: Luke Edwards M.D. CC: Jason Mathews MD PAGE 1 Signed Report Name: ZAIN GUEVARA [place] : 1935 Age/S: 87 / M [address] [address] [place] Unit #: [id number] Loc: [place] [address] Phys: Jason Mathews MD Acct: [id number] Dis Date: Status: ADM IN PHONE #: [phone] Exam Date: 10/25/2022717 FAX #: Reason: AbNL lung on CT neck EXAMS: CPT: [id number] XR CHEST 1 V 83054 Fluoro Time: DAP (Gy m2): Air Kerma (mGy): (Continued) Technologist: Mark Babcock, RT(R)(CT) Trnscb Date/Time: 10/25/2022 (1927) Obdulia Orig Print D/T: S: 10/25/2022 (1930) PAGE 2 Signed Report- CT C-SPINE W/O [id number] 18:59:00 [facility] : 1935 Sex: M Name:ZAIN GUEVARA [facility] : 1935 Age/S: 87 / M [address] [address] [place] Unit #: [id number] Loc:[place] [address] Phys: Jason Mathews MD Acct: [id number] Dis Date: Status: REG ER PHONE #: [phone] Exam Date: 10/25/20221827 FAX #: Reason: Neck pain EXAMS: CPT: [id number] CT C-SPINE W/O CONT 98452 LOCATION: H43 EXAM:CT HEAD WITHOUT CONTRAST, CT CERVICAL SPINE WITHOUT CONTRAST HISTORY: Headache. Syncope. TECHNIQUE: Axial imaging of the skull base to the vertex without the administration of intravenous contrast. Coronal and sagittal reconstruction. Thin section axial imaging the cervical spine from the base of the skull through the upper thoracic spine without the administration of intravenous contrast. Sagittal and coronal images are reconstructed. One or more of the following dose reduction techniques were used: Automated exposure control, adjustment of mA and/or kV according to patient size, or iterative reconstruction. COMPARISON: None. FINDINGS: CT Brain: There is no evidence of acute intracranial hemorrhage or extraaxial collection. Ventricles are normal in size and midline in position. Basilar cisterns are patent. Mild age appropriate atrophy is present. Moderate periventricular and deep white matter low density is present, nonspecific but most commonly attributed to chronic microvascular ischemic change in a patient of this age. 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 The orbits and their contents are normal. The paranasal sinuses and mastoid air cells are clear. The calvarium is intact. CT cervical spine: Vertebra are well aligned, andvertebral body height is maintained. No fracture is identified. No evidence of traumatic malalignment. Multilevel degenerative productive changes are present without PAGE 1 Signed Report (CONTINUED)Name: ZAIN GUEVARA [facility] : 1935 Age/S: 87 / M [address] [address] [place] Unit #: [id number] Loc: [place] [address] Phys: Jasno Mathews MD Acct: [id number] Dis Date: Status: REG ER PHONE#: [phone] Exam Date: 10/25/20221827 FAX #: Reason: Neck pain EXAMS: CPT: [id number] CT C-SPINE W/O CONT 32951 (Continued) evidence of significant central canal narrowing. The prevertebral softtissues are normal.The visualized airway is widely patent. Nodular interstitial prominence is notedin the bilateral lung apex. IMPRESSION: 1. No evidence of acute intracranial pathology. 2. 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 3. No acute cervical spine fracture or traumatic malalignment. 4. Biapical nodular interstitial prominenceconcerning for pneumonitis. Consider dedicated chest radiograph or CT chest evaluation. at 1859 Reported and signed by: Heather Dai M.D. CC: Jason Mathews MD Technologist:PELON MANN CTDI: DLP: Trnscb Date/Time: 10/25/2022 (1858) t.SDR.NS15 Orig Print D/T: S: 10/25/2022 (1901) PAGE 2 Signed Report- CT HEAD/BRAIN W/O [id number] 18:59:00 [facility] : 1935 Sex: M Name:ZAIN GUEVARA : 1935 Age/S: 87 / M [address] [address] [place] Unit #: [id number] Loc: [place] [address] Phys: Jason Mathews MD Acct: [id number] Dis Date: Status: REG ER PHONE #: [phone] Exam Date: 10/25/20221827 FAX #: Reason: Headache EXAMS: CPT: [id number] CT HEAD/BRAIN W/O CONT 56650 LOCATION: H43 EXAM:CT HEAD WITHOUT CONTRAST, CT CERVICAL SPINE WITHOUT CONTRAST HISTORY: Headache. Syncope. TECHNIQUE: Axial imaging of the skull base to the vertex without the administration of intravenous contrast. Coronal and sagittal reconstruction. Thin section axial imaging the cervical spine from the base of the skull through the upper thoracic spine without the administrationof intravenous contrast. Sagittal and coronal images are reconstructed. One or more of the following dose reduction techniques were used: Automated exposure control, adjustment of mA and/or kV according to patient size, or iterative reconstruction. COMPARISON: None. FINDINGS: CT Brain: There is no evidence of acute intracranial hemorrhage or extraaxial collection. Ventricles are normal in size and midline in position. Basilar cisterns are patent. Mild age appropriate atrophy is present. Moderate periventricular and deep white matter low density is present, nonspecific but most commonly attributed to chronic microvascular ischemic change in a patient of this age. 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 The orbits and their contents are normal. The paranasal sinuses and mastoid air cells are clear. The calvarium is intact. CT cervical spine: Vertebra are well aligned, and vertebral body height is maintained. No fracture is identified. No evidence of traumatic malalignment. Multilevel degenerative productive changes are present without PAGE 1 Signed Report (CONTINUED) Name: ZAIN GUEVARA : 1935 Age/S: 87 / M [address] [address] [place] Unit #: [id number] Loc: [place] [address] Phys: Jason Mathews MD Acct: [id number] Dis Date: Status: REG ER PHONE #: [phone] Exam Date: 10/25/20221827 FAX #: Reason: Headache EXAMS: CPT: [id number] CT HEAD/BRAIN W/O CONT 68957 (Continued) evidence of significant central canal narrowing. The prevertebralsoft tissues are normal.The visualized airway is widely patent. Nodular interstitial prominence is noted in the bilateral lung apex. IMPRESSION: 1. No evidence of acute intracranial pathology. 2. 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 3. No acute cervical spine fracture or traumatic malalignment. 4. Biapical nodular interstitial prominence concerning for pneumonitis. Consider dedicated chest radiograph or CT chest evaluation. at 1859 Reported and signed by: Danni Licea CC: Jason Mathews MD Technologist:PELON MANN CTDI: DLP: Trnscb Date/Time: 10/25/2022 (1858) tFABIR.NS15 Orig Print D/T: S: 10/25/2022 (1901) PAGE 2 Signed ReportTROP-I HIGH [id number] 18:08:00* Test Item Value Reference Range Interpretation Comme nts TROP-I HIGH SENSITIVITY (test code = TROPIHS) 155.2 ng/L 0-78 HH CAUTION: Units o f the current test methodology (ng/L) differfrom the prior test methodology (ng/mL) by a factor of 1000. 99th Percentile Upper Reference Limit (URL):Females: 54 ng/LMales: 79 ng/L In order to distinguish acute elevations of high sensitivitytroponin from other clinical conditions, the FourthUniversal Definition of Myocardial Infarction stressesclinical assessment and the demonstration of a rise and/orfall in serial troponin results above the URL. Results from different methodologies should not be comparedto one another as quantitative results and URLs may varyby method. Urine [id number] 06:00:00* Test Item Value Reference Range Interpretation Comments CULTURE, URINE, ROUTINE (test code = 836233836) SEE NOTE A ?CULTURE, URINE, ROUTINE ? ?Micro Number: ? ? ?[id number] ?Test Status: ? ? ? Final ?Specimen Source: ? Urine ?Specimen Quality: ?Adequate ?Result: ?10,000-49,000 CFU/mL of Morganella morganii ? This organism may show imipenem resistance by ? mechanisms other than a carbapenemase. ?COMMENT: ? Additional non-predominating organism(s) isolated. ? These organisms, commonly found on external and ? internal genitalia, are considered colonizers. No ? further testing performed. ?M.morganii ?INT ? DALIA ? AMOX/CLAVULANATE ? ? ? R ? ? >=32 ? AMPICILLIN ? R ? ? >=32 ? AMP/SULBACTAM ?I ? ? 16 ? CEFAZOLIN ?R ? ? >=64 1 ? CEFEPIME ? S ? ? <=1 ? CEFTAZIDIME ?S ? ? <=1 ? CEFTRIAXONE ?S ? ? <=1 ? CIPROFLOXACIN ?S ? ? <=0.25 ? GENTAMICIN ? S ? ? <=1 ? IMIPENEM ? I ? ? 2 ? LEVOFLOXACIN ? S ? ? <=0.12 ? NITROFURANTOIN ? R ? ? 128 ? PIP/TAZOBACTAM ? S ? ? <=4 ? TOBRAMYCIN ? S ? ? <=1 ? TRIMETHOPRIM/SULFA ? ? S ? ? <=20 S=Susceptible ?I=Intermediate ?R=Resistant ?* = Not TestedNR = Not Reported ?NN = See Therapy Comments THERAPY COMMENTS ? ?Note 1: ? ?For uncomplicated UTI caused by E. coli, ? ?K. pneumoniae or P. mirabilis: Cefazolin is ? ?susceptible if DALIA <32 mcg/mL and predicts ? ?susceptible to the oral agents cefaclor, cefdinir, ? ?cefpodoxime, cefprozil, cefuroxime, cephalexin ? ?and loracarbef. RAC (test code = RAC) Performing Organization Information: ? ?Site ID: [id number] ? ?Name: [facility] [place] ? ?Address: [address] [place] [phone] ? ?Director: ETHAN PEREZ MD Lab Interpretation (test code = 35896-0) Abnormal [facility] HealthTestosterone, free, [id number] 06:00:00* Test Item Value Reference Range Interpretation Comments TESTOSTERONE, TOTAL, MS (test code = 2986-8) 26 ng/dL 250-1100 L Men with clinica lly significant hypogonadal symptoms and testosterone valuesrepeatedly in the range of the 200-300 ng/dL or less, may benefit fromtestosterone treatment after adequate risk and benefits counseling. For additional information, please refer tohttps://education.Nekst/faq/APU563(This link is being provided for informational/educational purposes only.)(Note) This test was developed and its analytical performancecharacteristics have been determined by [facility]. It has notbeen cleared or approved by the FDA. This assay has been validatedpursuant to the CLIA regulations and is used for clinical purposes. TESTOSTERONE, FREE (test code = 2991-8) 3.4 pg/mL 30.0-135.0 L (Note)This test was developed and its analytical performance characteristics have been determined by [facility]. It has not been cleared or approved by the FDA. This assay has been validated pursuant to the CLIA regulations and is used for clinical purposes. MDFmed [id number] [place] [address],[address] [id number] Chaump, MD RAC (test code = RAC) Performing Organization Information: ? ?Site ID: [id number] ? ?Name: [facility] ? ?Address: [address] [place] [address] [place] [phone] ? ?Director: MARK BELL MD Lab Interpretation (test code = 17493-6) Abnormal [facility] urinalysis w/o [id number] 19:04:00* Test Item Value Reference Range Interpretation Comme nts Color, UA (test code = 4171477) Yellow Clarity, UA (test code = 5525220) Clear Glucose, UA (test code = 8510707) Negative Negative Bilirubin, UA (test code = 0154009) Negative Negative Ketones, UA (test code = 6523755) Negative Spec Grav, UA (test code = 9755420) 1.000-1.030 Blood, UA (test code = 4862534) Trace pH, UA (test code = 3502328) 5.0-8.5 Protein, UA (test code = 9998822) Negative Negative, Trace, 200(+2)mg/dL, 15/mg/dL Urobilinogen, UA (test code = 1011461) See_Comment [Automated messa ge] The system which generated this result transmitted reference range: 0.2. The reference range was not used to interpret this result as normal/abnormal. Leukocytes, UA (test code = 4268884) Negative Negative, Trace Nitrite, UA (test code = 6816806) Negative Negative, Trace Appearance, Fluid (test code = 9335-1) Clear Lab Interpretation (test code = 29343-1) Normal [facility] urinalysis w/o [id number] 13:28:00* Test Item Value Reference Range Interpretation Comme nts Color, UA (test code = 6670172) Yellow Clarity, UA (test code = 8826311) Clear Glucose, UA (test code = 0125462) Negative Negative Bilirubin, UA (test code = 0133477) Negative Negative Ketones, UA (test code = 6915521) Negative Spec Grav, UA (test code = 4581032) 1.000-1.030 Blood, UA (test code = 0392299) Trace-intact Abnormal pH, UA (test code = 6895845) 5.0-8.5 Protein, UA (test code = 5631541) Negative Negative, Trace, 200(+2)mg/dL, 15/mg/dL Urobilinogen, UA (test code = 8053501) See_Comment [Automated message] The system which generated this result transmitted reference range: 0.2. The reference range was not used to interpret this result as normal/abnormal. Leukocytes, UA (test code = 1885443) Negative Negative, Trace Nitrite, UA (test code = 7968818) Negative Negative, Trace Appearance, Fluid (test code = 9335-1) Clear Lab Interpretation (test code = 18720-7) Abnormal [facility] urinalysis w/o [id number] 15:39:00* Test Item Value Reference Range Interpretation Comme nts Color, UA (test code = 1964047) Yellow Clarity, UA (test code = 0744070) Clear Glucose, UA (test code = 8470351) Negative Negative Bilirubin, UA (test code = 2995153) Negative Negative Ketones, UA (test code = 6494584) Negative Spec Grav, UA (test code = 4476431) 1.000-1.030 Blood, UA (test code = 6850968) Trace pH, UA (test code = 4721515) 5.0-8.5 Protein, UA (test code = 6280939) Negative Negative, Trace, 200(+2)mg/dL, 15/mg/dL Urobilinogen, UA (test code = 6085979) See_Comment [Automated Euclid Systemsa ge] The system which generated this result transmitted reference range: 0.2. The reference range was not used to interpret this result as normal/abnormal. Leukocytes, UA (test code = 1487697) Negative Negative, Trace Nitrite, UA (test code = 6180041) Negative Negative, Trace Appearance, Fluid (test code = 9335-1) Clear Lab Interpretation (test code = 04238-5) Normal [facility] [id number] 01:00:00* Test Item Value Reference Range Interpretation Comme nts CULTURE, URINE, ROUTINE (test code = 826195642) SEE NOTE ?CULTURE, URINE, ROUTINE ? ?Micro Number: ? ? ?[id number] ?Test Status: ? ? ? Final ?Specimen Source: ? Urine, clean catch ?Specimen Quality: ?Adequate ?Result: ?Growth of mixed adriane was isolated, suggesting ? probable contamination. No further testing will ? be performed. If clinically indicated, ? recollection using a method to minimize ? contamination, with prompt transfer to Urine ? Culture Transport Tube, is recommended. REPORT COMMENT:SPLIT 03/22/2021 FROM [id number] RAC (test code = RAC) Performing Organization Information: ? ?Site ID: [id number] ? ?Name: [facility] [place] ? ?Address: [address] [place] [phone] ? ?Director: ETHAN PEREZ MD [place] HealthTestosterone, free, [id number] 16:00:00* Test Item Value Reference Range Interpretation Comments TESTOSTERONE, TOTAL, MS (test code = 2986-8) 16 ng/dL 250-1100 L Men with clinica lly significant hypogonadal symptoms and testosterone valuesrepeatedly in the range of the 200-300 ng/dL or less, may benefit fromtesterone treatment after adequate risk and benefits counseling. For additional information, please refer toNetworktps://education.Nekst/faq/KNR900(This link is being provided for informational/educational purposes only.)(Note) This test was developed and its analytical performancecharacteristics have been determined by [employer]. It has notbeen cleared or approved by the FDA. This assay has been validatedpursuant to the CLIA regulations and is used for clinical purposes. TESTOSTERONE, FREE (test code = 2991-8) 1.6 pg/mL 30.0-135.0 L (Note)This test was developed and its analytical performance characteristics have been determined by [employer]. It has not been cleared or approved by the FDA. This assay has been validated pursuant to the CLIA regulations and is used for clinical purposes. [facility] [id number] [place] [address],[address] [phone] Chaump, MD REPORT COMMENT:MULTIPLE TESTING PRIORITIES; ROUTINE TESTING TO FOLLOW. RAC (test code = RAC) Performing Organization Information: ? ?Site ID: [id number] ? ?Name: [facility] ? ?Address: [address] [place] [address] [place] [phone] ? ?Director: MARK BELL MD Lab Interpretation (test code = 07192-3) Abnormal [place] HealthPOCT urinalysis w/o [id number] 19:03:00* Test Item Value Reference Range Interpretation Comme nts Color, UA (test code = 3033512) Yellow Clarity, UA (test code = 5478170) Clear Glucose, UA (test code = 8975429) Negative Negative Bilirubin, UA (test code = 8712568) Negative Negative Ketones, UA (test code = 3539718) Negative Spec Grav, UA (test code = 1558325) 1.000-1.030 Blood, UA (test code = 3728777) Trace pH, UA (test code = 8082814) 5.0-8.5 Protein, UA (test code = 9985545) Negative Negative, Trace, 200(+2)mg/dL, 15/mg/dL Urobilinogen, UA (test code = 3822587) See_Comment [Automated Euclid Systemsa ge] The system which generated this result transmitted reference range: 0.2. The reference range was not used to interpret this result as normal/abnormal. Leukocytes, UA (test code = 9286688) Negative Negative, Trace Nitrite, UA (test code = 7706497) Negative Negative, Trace Appearance, Fluid (test code = 9335-1) Clear Lab Interpretation (test code = 08456-4) Normal [facility][QL] TESTOSTERONE, FREE AND TOTAL, LC/MS/[id number] 09:44:00* Test Item Value Reference Range Interpretation Comme nts TESTOSTERON E, TOTAL, MS (test code = TESTOSTERON E, TOTAL, MS) 3 ng/dl 250-1100 Men with clinica lly significant hypogonadal symptoms and testosterone values repeatedly in the range of the 200-300 ng/dL or less, may benefit from testosterone treatment after adequate risk and benefits counseling.(Note)For additional information, please refer tohttp://education.Careland.com/faq/TotalTestosteroneLCMSM S(This link is being provided for informational/educational purposesonly.)This test was developed and its analytical performancecharacteristics have been determined by [employer]. It has notbeen cleared or approved by the FDA. This assay has been validatedpursuant to the CLIA regulations and is used for clinical purposes. TESTOSTERON E, FREE (test code = TESTOSTERON E, FREE) 0.5 pg/ml 30.0-135.0 (Note)This test was developed and its analytical performance characteristics have been determined by [employer]. It has not been cleared or approved by the FDA. This assay has been validated pursuant to the CLIA regulations and is used for clinical purposes. [facility] [id number] [place] [address],[address] [place] [address] [phone] Chaump, MD Men with clinically significant hypogonadal symptoms and testosterone values repeatedly in the range of the 200-300 ng/dL or less, may benefit from testosterone treatment after adequate risk and benefits counseling.(Note)For additional information, please refer tohttp://education.Omedix.co m/faq/TotalTestosteroneLCMSMS(This link is being provided for informational/educational purposesonly.)This test was developed and its analytical performancecharacteristics have been determined by [employer]. It has notbeen cleared or approved by the FDA. This assay has been validatedpursuant to the CLIA regulations and is used for clinical purposes.[facility][QL] CULTURE, URINE, [id number] 09:44:00* Test Item Value Reference Range Interpretation Comme nts CULTURE (test code = CULTURE) See Comment CULTURE, URINE, ROUTINE Micro Number: [id number] Test Status: Final Specimen Source: URINE, CLEAN CATCH Specimen Quality: Adequate Result: Growth of mixed adriane was isolated, suggesting probable contamination. No further testing will be performed. If clinically indicated, recollection using a method to minimize contamination, with prompt transfer to Urine Culture Transport Tube, is recommended. REPORT COMMENT:FASTING:[facility][O] Urine Dipstick (In Office)2020-08-17 00:00:00* Test Item Value Reference Range Interpretation Comme nts Glucose (test code = Glucose) 100 N LEUKOCYTES (test code = LEUKOCYTES) Negative N NITRITE; Normal (test code = 76183-9) Negative N UROBILINOGEN; Normal (test c ode = 08536-7) 0.2 N PROTEIN; Normal (test code = 93166-1) Negative N pH (test code = pH) 5.5 N URINE BLOOD; Normal (test co de = 01108-2) Negative N SPECIFIC GRAVITY; Normal (te st code = 2965-2) 1.020 N KETONES; Normal (test code = 40631-1) Negative N BILIRUBIN; Normal (test code = 20244-5) Negative N [facility][O] Urine Dipstick (In Office)2019-09-19 16:27:00* Test Item Value Reference Range Interpretation Comme nts Glucose (test code = Glucose) negative N LEUKOCYTES (test code = LEUKOCYTES) negative N NITRITE; Normal (test code = 04344-8) negative N UROBILINOGEN; Normal (test c ode = 14749-0) 0.2 N PROTEIN; Normal (test code = 39946-7) negative N pH (test code = pH) 5.0 N URINE BLOOD; Normal (test co de = 83336-2) negative N SPECIFIC GRAVITY; Normal (te st code = 2965-2) 1.015 N KETONES; Normal (test code = 27735-4) negative N BILIRUBIN; Normal (test code = 41640-7) negative N COLOR URINE; Normal (test co de = 5778-6) yellow N APPEARANCE; Normal (test cod e = 5767-9) clear N [facility] Notes Date/Time Note Provider Source 2023-09-19 10:16:52 After getting a hold of Patients stated they don't want to be scheduled for cardiac clearance, they don't want the procedure done ETC.The office was notified. Thank you. Pau Matos MA [facility] 2023-09-19 09:13:36 Images from the original note were not included. PSS please explore first available appointment for welfare visitor for patient to be seen for Cardiac clearance. Dr. Rosas is out of office. Thank you. Carly Coto MD STAFF Signed 9:00 AM Plz help make appt for any cardiology provider, first available [facility] 2023-09-19 09:00:59 Plz help make appt for any cardiology provider, first available -CARDIOVASCULAR DISEASE STAFF [facility] 2023-09-19 08:44:23 Images from the original note were not included. Per Dr. Melara patient needs to be seen for Cardiac clearance Plan ? Jm Melara MD STAFF Signed Yesterday Please have patient be seen in clinic for preop clearance [facility] 2023-09-18 12:55:05 Please have patient be seen in clinic for preop clearance -CARDIOVASCULAR DISEASE STAFF [facility] 2023-09-18 09:31:42 Images from the original note were not included. Received form filled out and will send to For a urgent reply. Thank you [facility] 2023-09-15 14:19:01 Zain Guevara is a 88 year old male Sisi, charge nurse from the pre-op department from [facility] is calling about the cardiac clearance that is needed. States they are also needing the most recent echo, EKG, or any stress tests that have been done as well as the progress notes from the last office visit. Please advise. Kenyatta Kumar [facility] 2023-09-15 13:58:43 Copied from [facility] #[id number]. Topic: Clinical - Medical Advice >> September 15, 2023 1:54 PM Patient [employer] wrote: [facility] called to get cardiac clearance for urgent bronchoscopy. Please fax clearance to [phone] Pt is scheduled on 09/19/23 Contact Queta at [phone] T [facility] 2023-08-09 15:55:00 Consult Note Chief Complaint: FOLLOW UP GERD/COLON SCREEN History of Present Illness: 88 year old male with medical history significant for hypertension, type 2 diabetes mellitus, CKD, H. pylori infection (found on gastric biopsies 07/2021 s/p treatment and negative f/u biopsies) with history of gastric antral intestinal metaplasia, lye-induced esophageal strictures with history of recurrent food impaction complicated by esophageal perforation in 2015 which was managed by CT surgery with pleural wash out, esophagostomy and feeding jejunostomy. He last underwent esophageal dilation on 07/11/22. Patient is present at the [facility] today accompanied by her daughter in law for post-procedure visit. Patient underwent EGD with dilation on 2022 due to complaints of dysphagia; findings showed that the proximal esophagus appeared unremarkable. The previously noted benign esophageal stricture was seen at 26-30 cm. The upper endoscope (diameter 5.4 mm) was unable to traverse the stricture. A diagnostic upper endoscope was then advanced to the esophageal stricture, and the TTS balloon dilator was then used to dilated the stricture. There was minimal resistance when the balloon was inflated to 9 mm, so the balloon was inflated to 10 mm with moderate resistance x 1 minute with appropriate superficial mucosal tearing and +heme. The endoscope was then able to traverse the stricture. He last underwent colonoscopy in 2018 that did not reveal any significant pathology ( 2 mm hyperplastic polyp was removed from the sigmoid colon). He states occasionally has mild dysphagia but this is rare when he chews his food thoroughly and drinks liquids with meals. He has had resolution of heartburn on omeprazole 40 mg once a day. Review of Systems: ALLERGIC/IMMUNOLOGIC: No history of allergic rhinitis or immunologic disorder. HEMATOLOGIC/LYMPHATIC: no anemia, no lymphadenopathy. EYES: No vision change or eye pain. EAR, NOSE, MOUTH AND THROAT: No odynophagia or oral lesions. CARDIOVASCULAR: No palpitations or chest pain. RESPIRATORY: No cough or shortness of breath. GENITOURINARY: No gross hematuria or dysuria. MUSCULOSKELETAL: No arthralgias or myalgias. SKIN: no rashes or discoloration PSYCHIATRIC: No anxiety or depression. NEUROLOGIC: No focal weakness, paresthesias. CONSTITUTIONAL: No fever, weight loss, loss of appetite. Problem List/Past Medical History: Ongoing Anemia Chronic kidney disease stage 3 Combined form of senile cataract Diabetes Mellitus Diabetic renal disease Elevated PSA Erectile dysfunction following radical prostatectomy Gastroesophageal reflux disease History of smoking HTN (hypertension) Hypercholesterolemia Hypertension Leg edema Male hypogonadism Malignant neoplasm prostate Mixed dyslipidemia Monoclonal gammopathy Multiple pulmonary nodules Myopia with astigmatism and presbyopia Osteopenia Other mechanical complication of other indwelling urethral catheter, subsequent encounter Polyp of large intestine Preventive measure Type 2 diabetes mellitus Vitamin D deficiency Voiding dysfunction Family History: Heart attack: Sister. Heart disease: Sister. High blood pressure: Father. Type 2 diabetes mellitus: Grandparent. Social History: Smoking Status None Alcohol Past, Type Beer. Frequency: 3-5 times per week. Electronic Cigarette/Vaping Electronic Cigarette Use: Never. Employment/School Status: Retired. Exercise Exercise type: Walking. Substance Abuse Use: None. Tobacco Use: Former smoker. Type: Cigarettes. Previous treatment: None. Tobacco smoke exposure: None. Did the Patient Smoke Cigarettes Anytime During the Last 365 Days? No. Cessation Counseling Provided? Yes. Procedure/Surgical History: Prostatectomy (04/24/2005) Dilatation of esophageal stricture Procedure Home Medications: aspirin 81 mg tablet, enteric coated, 81 mg= 1 tab, PO, Daily Carafate 1 g/10 mL oral suspension, 1 gm= 10 mL, PO, QID-Before Meals doxazosin 2 mg oral tablet, 2 mg= 1 tab, PO, Daily ezetimibe, 10 mg= 1 tab, PO, Daily Farxiga 5 mg oral tablet, 5 mg= 1 tab, PO, Daily gemfibrozil 600 mg oral tablet, 600 mg= 1 tab, PO, Daily Lantus Solostar Pen 100 units/mL subcutaneous solution, 50 unit, SUB-Q, Bedtime losartan 100 mg oral tablet, 100 mg= 1 tab, PO, Daily omeprazole 40 mg oral delayed release capsule, 40 mg= 1 cap, PO, Daily, 3 refills, take 30-60 min before breakfast Trelegy Ellipta 100 mcg-62.5 mcg-25 mcg/inh inhalation powder, 1 inhalation, INHALATION, Daily Vitamin D3 400 intl units oral capsule, 10 microgram= 1 cap, PO, QAM Allergies: NKFA No Known Medication Allergies Physical Exam: Ht 5'4" Wt 175 lbs BP 172/78 Hr 71 Temp 97.8 GENERAL: Alert and oriented, no acute distress. HEENT: Anicteric, oropharynx clear. NECK: Supple, no lymphadenopathy. LUNGS: Clear to auscultation bilaterally. CARDIOVASCULAR: Regular rate and rhythm. ABDOMEN: Soft, nontender, nondistended, normoactive bowel sounds. EXTREMITIES: No cyanosis or clubbing. 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 He is overall doing well with thorough chewing during meals. He denies having the sensation of food impaction at any time. Will continue omeprazole. He was asked to call the clinic if he has worsening of dysphagia. -Colon cancer screening. Last colonoscopy was in 2018, and there was no evidence of precancerous polyps. Currently guidelines recommend not to continue screening colonoscopy due to age & risk/benefits of undergoing invasive testing. Gastroenterology Physician [facility] 2023-05-03 15:24:21 Images from the original note were not included. Spoke with S.O. verbalized understanding, also stated that he would try a statin, he was told years ago that they were hurting his kidneys Farhat Rosas MD P Cardiology Nurse Please let Mr. Guevara know that I have reviewed his outside records and most recent labs Based on outside records he was taking another medicine called ezetimibe (zetia) 10 mg daily. I want him to continue taking this medicine. Will send it to his pharmacy. It seems that he refused to take any statins (based on outside note). Please ensure that he is still opposed to starting statins. Farhat Rosas MD professor of german. Division of cardiovascular medicine [facility] 2023-05-03 13:16:38 Noted, balbir Hernandez [facility] 2023-05-02 13:11:27 Requested records faxed in from [facility] and Dr. Donahue's office. Uploaded into pts chart under external provider records for review. [facility] 2023-04-28 11:45:00 Images from the original note were not included. Venipuncture collection performed by clean technique on the right anticubitus. Total of 1 attempts were made. Slight pressure and a bandage/dressing were applied to the site(s). The patient experienced no complications. The following specimens were processed according to instructions and sent to [facility] laboratories per lab order on 04/28/2023 : LT BLUE SST 2 RED LAV 1 PPT DK GREEN (LiHep) DK GREEN (SodH) WATSON DK BLUE (K2) DK BLUE (S) ACD Blood Culture NIPT/NTD Juan two sst instead of two lavenders. Will combine the two test together for the lavenders. [facility] 2023-04-28 10:30:00 Addended by: FARHAT PADRON on: 05/03/2023 01:27 PM Modules accepted: Orders [facility] 2022-11-18 22:19:00 [id number] [address] PATIENT NAME: ZAIN GUEVARA ADMIT DATE: 10/25/22 ACCOUNT NO: [id number] ROOM NO: [facility] AGE: 87 REPORT TYPE: 360 - QUERY RESPONSE DOCUMENT SEX: M ADMITTING PHYSICIAN: Jessica Ibarra MD ATTENDING PHYSICIAN: Jessica Ibarra MD Provider Query QUERY TEXT: Clarification Rule In Rule Out 360MD Query related questions should be directed to:[facility] Coding Query Hotline Based on your clinical judgment of the documented diagnosis of pneumonitis in the rule out pneumonitis can you clarify if the diagnosis has been ruled in, ruled out, or if there is a more appropriate diagnosis? The patient's Clinical Indicators include: Rule out pneumonitis: hospitalist discharge summary :10/28/2022 Patient states having shortness of breath:Rapid Initial Assessment 10/25/2022 (1) cefTRIAXone SODIUM 1,000 MG VIAL: medication:10/26/2022 Options provided: -- Ruled In, Please specify the diagnosis. -- Ruled Out, Please specify the diagnosis. -- Other Specified diagnosis, Please specify the diagnosis. -- Other - I will add my own diagnosis -- Dismiss - Not applicable / Not valid -- Dismiss - Clinically unable to determine / Unknown -- Assign to another provider QUERY RESPONSE: Provider was clinically unable to determine a response for this query Query created by: Sarah Maurice on 11/01/2022 1:15 AM QUERY TEXT: Condition General 360MD Query related questions should be directed to:[facility] Coding Query Hotline Based on your medical judgment and the clinical indicators listed below kindly specify the underlying cause of the patient's Syncope (LESTER, diabetes mellilitis,rhabdomyolysis, hydration, syncope unspecified, or other more appropriate diagnosis)? The patient's Clinical Indicators include: SYNCOPE Hospitalist Discharge Summary 10/28/2022 (2) LESTER on CKD Hospitalist Discharge Summary 10/28/2022 (2) #Diabetes mellitus Hospitalist Discharge Summary 10/28/2022 (2) #Mild rhabdomyoly Hospitalist Discharge Summary 10/28/2022 (2) -Continue IV hydration given the mild rhabdomyolysis:Hospitalist History and Physical 10/26/2022 (2) Options provided: -- Respond - Create new note now -- Dismiss - Not applicable / Not valid -- Dismiss - Clinically unable to determine / Unknown -- Assign to another provider QUERY RESPONSE: Provider was clinically unable to determine a response for this query Query created by: Sarah Maurice on 11/01/2022 1:31 AM QUERY TEXT: Clarification Conflicting Diagnosis Procedure 360MD Query related questions should be directed to:[facility] CODING QUERY HOTLINE AT Based on your clinical judgement, please clarify the following conflicting documentation: AL TYPE I CONFIRMED AL TYPE I NOT CONFIRMED AL TYPE II CONFIRMED AL TYPE II NOT CONFIRMED OTHER MORE APPROPRIATE DIAGNOSIS The patient's Clinical Indicators include: PROGRESS NOTE 10/26/22 ELEVATED TROPONIN ELEVATED TROPONIN MULTFACTORIAL GIVEN POOR EWNAL CLEARANCE VERSES TYPE II AL Options provided: -- Respond - Create new note now -- Dismiss - Not applicable / Not valid -- Dismiss - Clinically unable to determine / Unknown -- Assign to another provider QUERY RESPONSE: Provider was clinically unable to determine a response for this query Query created by: Kiki Kothari on 11/15/2022 8:37 AM at 3786 PATIENT NAME: ZAIN GUEVARA [facility] 2022-10-28 17:34:00 [facility] Pulmonary Consultation Note REPORT#:[id number] REPORT STATUS: Signed DATE:10/28/22 TIME:1734 PATIENT: ZAIN GUEVARA UNIT #: [id number] ROOM/BED: [address] : [address] AGE: 87 SEX: M ATTEND: Jessica Ibarra MD ADM AUTHOR: Severo Osborne MD * ALL edits or amendments must be made on the electronic/computer document * History of Present Illness HPI HPI: 87-year-old male with a history of diabetes mellitus, prostate cancer, coronary artery disease who presented to the hospital after an unwitnessed syncope. Patient reported feeling weak while grilling outside. Patient had work-up done showing bilateral subcentimeter lung nodules Mild intermittent cough no hemoptysis no fever no chills Tolerating room air History - Adult longitudinal Additional medical history: Hypertension Coronary artery disease Prostate cancer Diabetes mellitus CKD 3 Monoclonal gammopathy Hyperlipidemia Additional surgical history: Prostatectomy Family history: Reports: Hypertension. Alcohol use: Denies EtOH use Drug use: Denies recreational drugs Smoking status for patients 13 years old or older: Never Smoker Allergies: Coded Allergies: No Known Allergies (10/25/22) Review of Systems All systems rev neg: except as marked Objective Physical Exam Vitals: Last Documented: Result Date Time Pulse Ox 99 10/28 1551 B/P 133/61 10/28 1551 B/P Mean 84.7 10/28 1551 O2 Delivery Room air 10/28 1550 Temp 37.0 10/28 155 Pulse 79 10/28 1551 Resp 14 10/28 155 Results Findings/Data: Laboratory Tests 10/28/22 1010: [Embedded Image Not Available] 10/28/22 0616: [Embedded Image Not Available] Laboratory Tests 10/28 10/28 10/28 10/28 10/28 1712 1627 1224 1102 0724 Chemistry POC Glucose (70 - 110 mg/dL) 198 H 175 H 190 H 180 H 119 H 10/28 10/27 064 Chemistry Sodium (134 - 147 mmol/L) 136 Potassium (3.4 - 5.0 mmol/L) 5.5 H Chloride (100 - 108 mmol/L) 113 H Carbon Dioxide (21 - 32 mmol/L) 17 L Anion Gap (4.0 - 15.0 GAP calc) 6.0 BUN (7 - 18 MG/DL) 28 H Creatinine (0.8 - 1.3 MG/DL) 1.8 H Glomerular Filtr Rate (>60 estGFR) 36 L Glucose (70 - 110 MG/DL) 119 H POC Glucose (70 - 110 mg/dL) 222 H Calcium (8.5 - 10.1 MG/DL) 9.2 Magnesium (1.8 - 2.4 MG/DL) 1.7 L Laboratory Tests 10/28 1010 Hematology WBC (3.5 - 11.0 K/mm3) 3.9 RBC (4.70 - 6.10 M/mm3) 4.01 L Hgb (12.3 - 15.9 G/DL) 10.7 L Hct (35.8 - 46.7 %) 31.7 L MCV (86.3 - 98.9 Fl) 79.1 L MCH (28.9 - 34.4 pg) 26.7 L MCHC (32.1 - 34.5 G/DL) 33.8 RDW (11.5 - 14.5 SD) 14.2 Plt Count (150 - 450 K/mm3) 229 MPV (7.0 - 9.6 fL) 10.40 H Neut % (Auto) (40 - 76 %) 36.9 L Lymph % (Auto) (20.5 - 51.1 %) 35.7 [place] % (Auto) (1.7 - 9.3 %) 14.1 H Eos % (Auto) (0.0 - 6.0 %) 12.3 H Baso % (Auto) (0.0 - 2.0 %) 1.0 Neut # (Auto) (1.8 - 7.6 K/mm3) 1.4 L Lymph # (Auto) (0.6 - 3.0 K/mm3) 1.4 [place] # (Auto) (0.2 - 1.5 K/mm3) 0.6 Eos # (Auto) (0.0 - 0.4 K/mm3) 0.5 H Baso # (Auto) (0.0 - 0.2 K/mm3) 0.0 Abs Immat Gran (auto) (0.00 - 0.03 x10 3/uL) 0.00 Add Manual Diff (CRITERIA DIFF/SCN) NO Immature Gran % (0.0 - 5.0 %) 0.0 Nucleated RBC % (0.0 - 1.0 /100WBC%) 0.0 Free Text Obj Notes Free Text Obj Notes: General appearance: Alert and oriented not in distress Head and neck. Normocephalic atraumaticr CV: S1-S2 regular rate and rhythm, no murmur Lungs: Fair air entry bilaterally, no rales no wheezes no rhonchi Abdomen: Soft lax nontender, no masses Extremities: No lower limb edema, no cyanosis no clubbing Neurologic: Alert and oriented, intact cranial nerves, no focal deficit Skin: Intact, no lesions Lymphatic: No lymphadenopathy appreciated Diagnosis, Assessment Plan Free Text DxA P Notes Free Text DxA P Notes: 1. Bilateral lung nodules 2. History of prostate cancer 3. Chest pain Seen and examined at bedside Evaluated imaging study of the chest tiny nodules bilaterally were noted differential including atypical bronchiolitis versus at mets from the prostate cancer Not amenable for biopsy Currently on room air Could be discharged and worked up as outpatient at 1738 RPT #: [id number] END OF REPORT [facility] 2022-10-28 16:27:00 [facility] ([facility]) Hospitalist Discharge Summary REPORT#:[id number] REPORT STATUS: Signed DATE:10/28/22 TIME:1626 PATIENT: ZAIN GUEVARA UNIT #: [id number] ROOM/BED: [address] : 36 AGE: 87 SEX: M ATTEND: Jessica Ibarra MD ADM AUTHOR: Jessica Ibarra MD * ALL edits or amendments must be made on the electronic/computer document * General Information Date of admission: Observation Start Date: Date of admission: 10/25/22 Discharge date: 10/28/22 Admission diagnosis: #Syncope #LESTER on CKD #Diabetes mellitus #Elevated troponin #Mild rhabdomyolysis #Chronic microcytic anemia #Rule out pneumonitis #Elevated troponin Discharge diagnosis: #Syncope #LESTER on CKD #Diabetes mellitus #Elevated troponin #Mild rhabdomyolysis #Chronic microcytic anemia #Rule out pneumonitis #Elevated troponin Hospital course: Mr. Guevara is a 87-year-old male with a history of diabetes mellitus, prostate cancer who presented to the hospital after a witnessed syncope. Symptoms started after prolonged standing outside in the sun/palpated. Patient denies any trauma biting, urine or bowel incontinence. He quickly recovered. CT chest ruled out Pulmonary embolism however showed infiltrates consistent with infectious process. There was also tiny nodules bilaterally. Bronchiolitis versus mets from prostate cancer. These nodules are very small and not amenable to biopsy. He will follow-up with his PCP outpatient for close monitoring. Echocardiogram showed no regional wall motion abnormality. Patient has improved and remained hemodynamically stable for discharge. Patient remained hemodynamically stable for discharge. Pt. condition on discharge: stable Med Rec Med Rec Discharge meds: Continue taking these medications: ASPIRIN EC (ECOTRIN) 81 MG TAB.EC 81 MILLIGRAM ORAL DAILY. CHOLECALCIFEROL (VITAMIN D3) (VITAMIN D3) 10 MCG (400 UNIT) TAB 400 UNITS ORAL DAILY. DOXAZOSIN (CARDURA) 2 MG TAB 2 MILLIGRAM ORAL DAILY. EZETIMIBE (ZETIA) 10 MG TAB 10 MILLIGRAM ORAL DAILY. GEMFIBROZIL (LOPID) 600 MG TAB 0.5 TABLET ORAL DAILY. INSULIN GLARGINE (LANTUS) 100 UNIT/ML VIAL 50 UNITS SUBCUTANEOUS BEDTIME. LOSARTAN (COZAAR) 50 MG TAB 50 MILLIGRAM ORAL DAILY. Objective VS/I O Last Documented: Result Date Time Pulse Ox 99 10/28 1550 B/P 133/61 10/28 1550 B/P Mean 84.7 10/28 1550 O2 Delivery Room air 10/28 1550 Temp 98.6 10/28 1550 Pulse 79 10/28 155 Resp 14 10/28 1550 24 hour I O ending at 0700: 10/28 1900 Intake Total Output Total 250 Balance -250 Output, Urine 250 Head/Eyes: atraumatic, clear cornea, EOMI, normal conjunctiva/sclera, normal eyelids/periorb., normocephalic, PERRL ENT: normal dentition, normal ear left, normal ear right, normal nose, normal pharynx, normal sinus Neck: full range of motion, non-tender, normal thyroid, supple/no meningismus, no bruit/NL carotids, no JVD, no masses or swelling Cardiovascular: normal capillary refill, normal heart sounds Respiratory: clear to auscultation, no distress Abdomen: non-tender, normal bowel sounds, soft, no distention, no guarding, no hernia, no mass/organomegaly, no rebound Extremities: moves all, normal capillary refill, normal range of motion, no edema Musculoskeletal: normal inspection, painless range of motion Neuro/TELEGRAPH EDITOR: alert, oriented X 3 Skin: dry, intact Psychiatry: normal affect, normal judgment/insight, normal mood, not homicidal, not suicidal Results Findings/Data: Laboratory Tests: 10/28 10/28 10/28 10/28 10/28 1224 1102 1010 0724 0616 Chemistry Sodium (134 - 147 mmol/L) 136 Potassium (3.4 - 5.0 mmol/L) 5.5 H Chloride (100 - 108 mmol/L) 113 H Carbon Dioxide (21 - 32 mmol/L) 17 L Anion Gap (4.0 - 15.0 GAP calc) 6.0 BUN (7 - 18 MG/DL) 28 H Creatinine (0.8 - 1.3 MG/DL) 1.8 H Glomerular Filtr Rate (>60 estGFR) 36 L Glucose (70 - 110 MG/DL) 119 H POC Glucose (70 - 110 mg/dL) 190 H 180 H 119 H Calcium (8.5 - 10.1 MG/DL) 9.2 Magnesium (1.8 - 2.4 MG/DL) 1.7 L Hematology WBC (3.5 - 11.0 K/mm3) 3.9 RBC (4.70 - 6.10 M/mm3) 4.01 L Hgb (12.3 - 15.9 G/DL) 10.7 L Hct (35.8 - 46.7 %) 31.7 L MCV (86.3 - 98.9 Fl) 79.1 L MCH (28.9 - 34.4 pg) 26.7 L MCHC (32.1 - 34.5 G/DL) 33.8 RDW (11.5 - 14.5 SD) 14.2 Plt Count (150 - 450 K/mm3) 229 MPV (7.0 - 9.6 fL) 10.40 H Neut % (Auto) (40 - 76 %) 36.9 L Lymph % (Auto) (20.5 - 51.1 %) 35.7 [place] % (Auto) (1.7 - 9.3 %) 14.1 H Eos % (Auto) (0.0 - 6.0 %) 12.3 H Baso % (Auto) (0.0 - 2.0 %) 1.0 Neut # (Auto) (1.8 - 7.6 K/mm3) 1.4 L Lymph # (Auto) (0.6 - 3.0 K/mm3) 1.4 [place] # (Auto) (0.2 - 1.5 K/mm3) 0.6 Eos # (Auto) (0.0 - 0.4 K/mm3) 0.5 H Baso # (Auto) (0.0 - 0.2 K/mm3) 0.0 Abs Immat Gran (auto) (0.00 - 0.03 0.00 x10 3/uL) Add Manual Diff (CRITERIA DIFF/SCN) NO Immature Gran % (0.0 - 5.0 %) 0.0 Nucleated RBC % (0.0 - 1.0 /100WBC%) 0.0 07/06 07/06 2054 1630 Chemistry POC Glucose (70 - 110 mg/dL) 222 H 124 H Discharge Instructions PCP PCP follow-up: PCP: Undefined Provider Discharge to: Home Health [facility] Additional Discharge Routines: PCP Follow-Up Diet: Cardiac Activity: As Tolerated Follow-up Appointments PCP follow-up: PCP: Undefined Provider PCP follow up timeframe: In 1-2 weeks Consulting provider 1: Provider 1: Severo Osborne MD Specialty: Pulmonary Disease Consult follow up timeframe: In 1-2 weeks Special instructions: PULM NODULE at 2139 RPT #: [id number] END OF REPORT [facility] 2022-10-28 12:34:00 [id number] [facility] [address] [place] [address] PATIENT NAME: ZAIN GUEVARA ADMIT DATE: 10/25/22 ACCOUNT NO: [id number] ROOM NO: LPO3 AGE: 87 REPORT TYPE: eECHOCARDIOGRAM REPORT SEX: M ADMITTING PHYSICIAN: Jessica Ibarra MD ATTENDING PHYSICIAN: Jessica Ibarra MD *[facility]* [id number] [place] [id number] Transthoracic Echocardiogram Patient: Zain Guevara Study Date: 10/27/2022 BP: 149 / 79 Location: [facility] URN: [id number] : 1935 Age: 87 Height: 65 in / 165.1 cm Gender: M Weight: 176.9 lb / 80.4 kg BMI/BSA: 29.5 kg/m 2 / 1.94 m 2 *Ordering Physician: * Jessica Ibarra I *Interpreting Physician: * David Esparza *Senior Principal Process Engineer: SHARLA Garvin Indications: CHEST PAIN. Study data: Transthoracic echocardiogram. Procedure: Transthoracic echocardiography was performed. Image quality was adequate. Complete 2D, complete spectral Doppler, and color Doppler. Location: Bedside. Patient status: Inpatient. Patient room number: PO3-B. Study status: Routine. Findings Left ventricle: The cavity size is normal. Wall thickness is normal. Systolic function is normal. The estimated ejection fraction is 55-60%. Wall motion is normal; there are no regional wall motion abnormalities. Left ventricular diastolic function parameters are normal for the patient's age. Right ventricle: The cavity size is normal. Systolic function is PATIENT NAME: ZAIN GUEVARA normal. Left atrium: The atrium is normal in size. Right atrium: The atrium is normal in size. Aorta: Aortic root: The aortic root is normal in size. Aortic valve: The valve is structurally normal. The valve is trileaflet. There is no evidence of stenosis. There is mild regurgitation. Mitral valve: The valve is structurally normal. The leaflets are normal thickness. There is no evidence of stenosis. There is mild regurgitation. Tricuspid valve: The valve is structurally normal. The leaflets are normal thickness. There is trivial regurgitation. Pulmonic valve: The valve is structurally normal. The leaflets are normal thickness. There is no regurgitation. Pericardium: There is no pericardial effusion. Systemic veins: Inferior vena cava: The vessel is normal in size. Measurements Left ventricle Value Ref CINTIA, LAX 4.1 cm 4.2 - 5.8 ESD, LAX 3.0 cm 2.5 - 4.0 ESD/bsa, LAX 1.5 cm/m 2 1.3 - 2.1 FS, LAX 28 % 25 - 43 PW, ED 0.9 cm 0.6 - 1.0 IVS/PW, ED 1.04 --------- EF 55 % 52 - 72 IVRT 114 ms --------- E/e', avg, TDI 10 <=14 LVOT Value Ref Diam, S 1.96 cm --------- Area 3.0 cm 2 --------- Peak darrel, S 0.94 m/sec --------- Mean darrel, S 0.68 m/sec --------- VTI, S 19.0 cm --------- Peak grad, S 4 mm Hg --------- Mean grad, S 2 mm Hg --------- SV 57 ml --------- SV/bsa 29 ml/m 2 --------- Ventricular septum Value Ref IVS, ED 0.9 cm 0.6 - 1.0 Right ventricle Value Ref Pressure, S 23 mm Hg --------- Left atrium Value Ref Vol/bsa, ES, 1-p A4C 13 ml/m 2 12 - 37 Vol/bsa, ES, A/L 14 ml/m 2 16 - 34 AP dim, ES MM 3.8 cm 3.0 - 4.0 LA/Ao root ratio, MM 1.38 --------- PATIENT NAME: ZAIN GUEVARA Aortic valve Value Ref Leaflet sep, MM 1.73 cm --------- Peak v, S 1.32 m/sec --------- Mean v, S 0.99 m/sec --------- VTI, S 25.4 cm --------- Mean grad, S 4.2 mm Hg --------- Peak grad, S 7.0 mm Hg --------- LVOT/AV, VTI ratio 0.75 --------- NICK, VTI 2.25 cm 2 --------- LVOT/AV, Vpeak ratio 0.71 --------- NICK, Vmax 2.06 cm 2 --------- Mitral valve Value Ref Peak E 0.91 m/sec --------- Peak A 1.12 m/sec --------- Decel time 187 ms --------- PHT 65 ms --------- Peak grad, D 3.3 mm Hg --------- Peak E/A ratio 0.81 --------- MVA, PHT 3.4 cm 2 --------- MR peak v 5.28 m/sec --------- Tricuspid valve Value Ref TR peak v 2.09 m/sec <=2.8 Peak RV-RA grad, S 18 mm Hg --------- Aortic root Value Ref Root diam, ED MM 2.76 cm --------- Pulmonary artery Value Ref Pressure, S 19.4 mm Hg --------- Systemic veins Value Ref Estimated CVP 5 mm Hg --------- Pulmonary veins Value Ref A rev duration 137 ms --------- Conclusions Summary: 1. Left ventricle: The cavity size is normal. Wall thickness is normal. Systolic function is normal. The estimated ejection fraction is 55-60%. Wall motion is normal; there are no regional wall motion abnormalities. Left ventricular diastolic function parameters are normal for the patient's age. 2. Right ventricle: The RV pressure during systole by Doppler is 23 mm Hg. Prepared and electronically signed by PATIENT NAME: ZAIN GUEVARA David Esparza 10/28/2022 12:33 at 1234 PATIENT NAME: ZAIN GUEVARA [facility] 2022-10-28 08:32:00 [facility]) Nephrology Progress Note REPORT#:[id number] REPORT STATUS: Signed DATE:10/28/22 TIME:0832 PATIENT: ZAIN GUEVARA UNIT #: [id number] ROOM/BED: L.PO3-B : 36 AGE: 87 SEX: M ATTEND: Jessica Ibarra MD ADM AUTHOR: Dhaval Kinney MD * ALL edits or amendments must be made on the electronic/computer document * Subjective Chief complaint: syncope. seen today. feels better. has no new issues. Objective General VS/I O: PATIENT WEIGHT: Weight (lb): Weight (oz): Weight (kg): 80.400 Physical Exam General appearance: alert, awake Head/eyes: atraumatic, normocephalic Cardiovascular: regular rate and rhythm Respiratory: clear to auscultation Abdomen: soft Extremities: normal inspection Neuro/TELEGRAPH EDITOR: alert, normal speech Diagnosis, Assessment Plan Free Text A P: NSTEMI LESTER-resolving. Hypertension DM 2 Hyperlipidemia Plan: His serum cr is better today at 1.80. work up of syncope is non revealing. we will follow his clinical course closely. we will continue IV hydration. we will avoid nephrotoxins and dose meds for eGFR. at 1159 RPT #: [id number] END OF REPORT [facility] 2022-10-27 17:47:00 [facility] ([facility]) Nephrology Progress Note REPORT#:[id number] REPORT STATUS: Signed DATE:10/27/22 TIME:174 PATIENT: ZAIN GUEVARA UNIT #: [id number] ROOM/BED: L.PO3-B : 36 AGE: 87 SEX: M ATTEND: Jessica Ibarra MD ADM AUTHOR: Dhaval Kinney MD * ALL edits or amendments must be made on the electronic/computer document * Subjective Chief complaint: syncope. seen today. has no new issues. Objective General VS/I O: PATIENT WEIGHT: Weight (lb): Weight (oz): Weight (kg): 80.400 Physical Exam General appearance: alert, awake Head/eyes: atraumatic, normal conjunctiva/sclera Cardiovascular: regular rate and rhythm Respiratory: clear to auscultation Abdomen: soft Extremities: normal inspection Neuro/TELEGRAPH EDITOR: alert, oriented X 3, normal speech Diagnosis, Assessment Plan Free Text A P: NSTEMI LESTER Hypertension DM 2 Hyperlipidemia Plan: His renal function abnormality is deemed due to ischemic atn. His serum cr is better today at 2.20. work up of syncope is non revealing. we will follow his clinical course closely. we will continue IV hydration. we will avoid nephrotoxins and dose meds for eGFR. at 1157 RPT #: [id number] END OF REPORT [facility] 2022-10-27 15:37:00 [facility] ([facility]) Hospitalist Progress Note REPORT#:[id number] REPORT STATUS: Signed DATE:10/27/22 TIME:1537 PATIENT: ZAIN GUEVARA UNIT #: [id number] ROOM/BED: [address] : 36 AGE: 87 SEX: M ATTEND: Jessica Ibarra MD ADM AUTHOR: Jessica Ibarra MD * ALL edits or amendments must be made on the electronic/computer document * Subjective Chief complaint: Syncope Objective General VS/I O: Vital Signs: Date Time Temp Pulse Resp B/P B/P Pulse O2 O2 Flow FiO2 Mean Ox Delivery Rate 10/27 1527 67 18 136/62 86.9 98 10/27 1059 97.7 66 18 150/68 95.3 99 10/27 0736 97.7 68 18 149/79 102.6 98 10/27 0332 98.6 67 18 132/71 91.3 98 10/27 0007 97.5 69 18 153/68 96.7 99 /1999 98.4 70 18 146/62 90 98 10/26 1610 98.1 87 15 130/64 86.1 98 Room air 24 hour I O ending at 0700: 10/27 0700 10/26 1900 Intake Total 120 Output Total 800 Balance -680 Intake, Oral 120 Output, Urine 800 PATIENT WEIGHT: Weight (lb): Weight (oz): Weight (kg): 80.400 Medications: Active Meds + DC'd Last 24 Hrs Azithromycin (ZITHROMAX) 500 MG DAILY PO Sodium Chloride (0.9% Sodium Chloride) 1,000 ML .Q10H IV Azithromycin (ZITHROMAX) 500 MG Q24H IV (DC) Sodium Chloride (0.9% Sodium Chloride) 250 ML Insulin Human Lispro (HUMALOG) ASDIRECTED AC HS SUBQ Albumin Human (OPTISON) 3 ML ONCE PRN IV Ceftriaxone Sodium (ROCEPHIN) 1,000 MG Q24H IV Sterile Water (WATER FOR INJECTION) 10 ML Dextrose/Water (DEXTROSE 10% IN WATER 250 ML) 125 ML ASDIR PRN IV Dextrose/Water (DEXTROSE 10% IN WATER 250 ML) 250 ML ASDIR PRN IV Glucagon (GLUCAGON) 1 MG ASDIR PRN IM Hydralazine HCl (APRESOLINE) 10 MG Q6H PRN PRN IV Famotidine (PEPCID) 10 MG DAILY PO Enoxaparin Sodium (lovENOX) 30 MG Q24H SUBQ Ondansetron HCl (ZOFRAN) 4 MG Q4H PRN PRN IV Dietitian nutrition assessment The data set between the solid lines has been imported from the dietitian's assessment. BMI Calculated: 29.5 Nutrition related diagnosis: Nutrition diagnosis details: Nutrition problem: Nutrition etiology: Nutrition signs and symptoms: Nutrition prescription: Dietitian name: Assessment completed: Physical Exam General appearance: alert, awake Head/Eyes: atraumatic, clear cornea, EOMI, normal conjunctiva/sclera, normal eyelids/periorb., normocephalic, PERRL ENT: normal dentition, normal ear left, normal ear right, normal nose, normal pharynx, normal sinus Neck: full range of motion, non-tender, normal thyroid, supple/no meningismus, no bruit/NL carotids, no JVD, no masses or swelling Cardiovascular: normal capillary refill, normal heart sounds Respiratory: clear to auscultation, no distress Abdomen: non-tender, normal bowel sounds, soft, no distention, no guarding, no hernia, no mass/organomegaly, no rebound Extremities: moves all, normal capillary refill, normal range of motion, no edema Musculoskeletal: normal inspection, painless range of motion Neuro/TELEGRAPH EDITOR: alert, oriented X 3 Skin: dry, intact Psychiatry: normal affect, normal judgment/insight, normal mood, not homicidal, not suicidal Results Findings/Data: Laboratory Tests 10/27 10/27 10/27 10/26 10/26 1211 0901 441 2018 174 Chemistry Sodium (134 - 147 mmol/L) 140 Potassium (3.4 - 5.0 mmol/L) 5.0 Chloride (100 - 108 mmol/L) 111 H Carbon Dioxide (21 - 32 mmol/L) 22 Anion Gap (4.0 - 15.0 GAP calc) 7.0 BUN (7 - 18 MG/DL) 31 H Creatinine (0.8 - 1.3 MG/DL) 2.2 H Glomerular Filtr Rate (>60 estGFR) 28 L Glucose (70 - 110 MG/DL) 116 H POC Glucose (70 - 110 mg/dL) 163 H 152 H 142 H 192 H Calcium (8.5 - 10.1 MG/DL) 9.4 Magnesium (1.8 - 2.4 MG/DL) 2.0 Laboratory Tests 10/27 044 Hematology WBC (3.5 - 11.0 K/mm3) 3.9 RBC (4.70 - 6.10 M/mm3) 3.76 L Hgb (12.3 - 15.9 G/DL) 10.0 L Hct (35.8 - 46.7 %) 29.0 L MCV (86.3 - 98.9 Fl) 77.1 L MCH (28.9 - 34.4 pg) 26.6 L MCHC (32.1 - 34.5 G/DL) 34.5 RDW (11.5 - 14.5 SD) 14.3 Plt Count (150 - 450 K/mm3) 241 MPV (7.0 - 9.6 fL) 10.40 H Neut % (Auto) (40 - 76 %) 30.6 L Lymph % (Auto) (20.5 - 51.1 %) 44.2 [place] % (Auto) (1.7 - 9.3 %) 12.5 H Eos % (Auto) (0.0 - 6.0 %) 11.9 H Baso % (Auto) (0.0 - 2.0 %) 0.8 Neut # (Auto) (1.8 - 7.6 K/mm3) 1.2 L Lymph # (Auto) (0.6 - 3.0 K/mm3) 1.7 [place] # (Auto) (0.2 - 1.5 K/mm3) 0.5 Eos # (Auto) (0.0 - 0.4 K/mm3) 0.5 H Baso # (Auto) (0.0 - 0.2 K/mm3) 0.0 Abs Immat Gran (auto) (0.00 - 0.03 x10 3/uL) 0.00 Add Manual Diff (CRITERIA DIFF/SCN) NO Immature Gran % (0.0 - 5.0 %) 0.0 Nucleated RBC % (0.0 - 1.0 /100WBC%) 0.0 Laboratory Tests 10/27 1218 Serology SARS-CoV-2 Ag (Rapid) (Negative) NEGATIVE Radiology data: Recent Impressions: CAT SCAN - CT CHEST W/O CONTRAST 10/27 1723 Report Impression - Status: SIGNED Entered: 10/26/2022 100 IMPRESSION: 1. Scattered subcentimeter nodules predominantly in the upper lungs most likely representing atypical infectious/inflammatory etiology. 2. Old granulomatous disease. Impression By: Irasema Vidal M.D. Diagnosis, Assessment Plan Orders: Procedure Date/time Status Provider Consult 10/27 1540 Active PHYSICAL THERAPIST CONSULT 10/27 1431 Active OCCUPATIONAL THERAPIST CONSULT 10/27 1431 Active COVID 19 INHOUSE AG 10/26 1218 Complete Code status: full code Free Text DxA P Notes Free text DxA P notes: Mr. Guevara is a 87-year-old male who presented to the hospital after syncope. #Syncope #LESTER on CKD #Diabetes mellitus #Elevated troponin #Mild rhabdomyolysis #Chronic microcytic anemia #Rule out pneumonitis #Elevated troponin -CT head, CT cervical spine noted. -Orthostatic vital signs. Echocardiogram and Carotid Doppler studies are pending. -IV hydration. Trend creatinine. Avoid nephrotoxin. Consulted payable processor. -FOBT. Check iron studies given microcytic anemia. -Continue IV hydration given the mild rhabdomyolysis. -BG ACHS and cover with insulin sliding scale. -CT chest noted. consult pulm. check covid test. pt is asymptomatic -Patient denies any chest pain. Elevated troponin multifactorial given poor renal clearance versus type II AL. DVT prophylaxis-SCD Patient is full code. at 1542 RPT #: [id number] END OF REPORT [facility] 2022-10-26 16:41:00 [facility] ([facility]) Nephrology Consultation Note REPORT#:[id number] REPORT STATUS: Signed DATE:10/26/22 TIME:164 PATIENT: ZAIN GUEVARA UNIT #: [id number] ROOM/BED: [address] : 36 AGE: 87 SEX: M ATTEND: Jessica Ibarra MD ADM AUTHOR: Dhaval Kinney MD * ALL edits or amendments must be made on the electronic/computer document * History of Present Illness Requesting clinician: Dr Ibarra Reason for consult: LESTER. Chief complaint: syncope. HPI: Mr. Guevara is a 87-year-old male with a history of diabetes mellitus, prostate cancer, coronary artery disease who presented to the hospital after an unwitnessed syncope. Patient reported feeling weak while grilling outside. He subsequently passed out for unknown period of time. Patient denied any bowel or urine incontinence. Denied any tongue biting. Patient denied any chest pain, cough or shortness of breath. His symptoms are since resolved. Nephrology was asked to assist with medical issues. History - Adult longitudinal Smoking status for patients 13 years old or older: Never Smoker Allergies: Coded Allergies: No Known Allergies (10/25/22) Review of Systems Constitutional: Denies: chills, fatigue, fever, generalized weakness, lethargy, malaise, recent wt loss, other. Skin: Denies: abrasion, bruising, contusion, diaphoresis, ecchymosis, itching, laceration, rash, swelling, other. Allergy/Immun: Denies: allergic reaction, anaphylaxis, hives, itching, rhinorrhea, sneezing, other. Eyes: Denies: redness, discharge, visual loss/blurred, itching, diplopia, eye pain, photophobia, swelling, other. ENT: Denies: ear drainage, ear ringing, earache, hearing loss, mouth pain, nasal congestion, nose bleeding, sinus problem, sore throat, throat pain, throat swelling, tongue pain, tongue swelling, toothache, voice change, other. Respiratory: Denies: LYNNE (dyspnea on exertion), hemoptysis, non productive cough, parox nocturnal dyspnea, pleurisy, pleuritic pain, pneumonia, productive cough (sputum ), SOB, wheezing, other. Cardiovascular: Denies: chest pain, LYNNE (dyspnea on exertion), edema, orthopnea, palpitations, parox nocturnal dyspnea, other. GI: Denies: abdominal pain, anorexia, constipation, diarrhea, dysphagia, GERD, hematemesis, hematochezia, hiatal hernia, melena, nausea, rectal pain, vomiting, other. : Denies: dysuria, flank pain, frequency, hematuria, nocturia, penile discharge, penile lesion, testicular pain, testicular swelling, urgency, urinary retention, other. Musculoskeletal: Denies: arthritis, extremity pain, extremity swelling, joint pain, joint swelling, lumbar pain, myalgias, neck pain, thoracic pain, other. Heme: Denies: adenopathy, bleeding, bruising, petechiae, other. Endocrine: Denies: cold intolerance, heat intolerance, polydipsia, polyphagia, polyuria, weight gain, weight loss, other. Neuro: Reports: syncope. Denies: bladder dysfunction, bowel dysfunction, change in LOC , confusion, dizziness, focal weakness, gait problem, headache, lightheaded, numbness, seizure, slurred speech, spinning sensation, unable to speak, vision change, weakness, other. Psych: Denies: agitation, anxiety, auditory hallucination, change in mental status, confusion, delusional, depression, homicidal ideation, hostile, insomnia, stress , suicidal ideation, visual hallucination, other. Objective General VS/I O: Vital Signs: Date Time Temp Pulse Resp B/P B/P Pulse O2 O2 Flow FiO2 Mean Ox Delivery Rate 10/26 1610 98.1 87 15 130/64 86.1 98 Room air 07/05 1128 97.9 65 15 127/69 88.4 99 Room air 07/05 0723 97.7 68 15 137/65 89.0 97 Room air 07/05 0340 97.7 65 16 141/69 93.2 99 07/04 2331 97.9 72 15 131/69 89.4 97 Room air 07/04 2039 98.6 72 16 154/72 99.2 99 Room air 07/04 1937 81 20 147/69 95 98 Room air 07/04 1913 82 20 167/76 106 98 Room air 07/04 1838 83 18 124/64 84 98 Room air 07/04 1730 82 18 139/64 89 97 Room air 07/04 1703 98.2 85 17 144/76 98 99 Room air 24 hour I O ending at 0700: 07/05 0700 07/04 1900 Intake Total 150 Output Total 360 Balance -210 Intake, Oral 150 Output, Urine 360 Patient 80.4 kg Weight Weight Bed scale Measurement Method PATIENT WEIGHT: Weight (lb): Weight (oz): Weight (kg): 80.400 Medications: Active Meds + DC'd Last 24 Hrs Azithromycin (ZITHROMAX) 500 MG DAILY PO Sodium Chloride (0.9% Sodium Chloride) 1,000 ML .Q10H IV Albuterol/Ipratropium (DUONEB) 3 ML RTQ4H NEB (DC) Azithromycin (ZITHROMAX) 500 MG Q24H IV (DC) Sodium Chloride (0.9% Sodium Chloride) 250 ML Insulin Human Lispro (HUMALOG) ASDIRECTED AC HS SUBQ Albumin Human (OPTISON) 3 ML ONCE PRN IV Ceftriaxone Sodium (ROCEPHIN) 1,000 MG Q24H IV Sterile Water (WATER FOR INJECTION) 10 ML Dextrose/Water (DEXTROSE 10% IN WATER 250 ML) 125 ML ASDIR PRN IV Dextrose/Water (DEXTROSE 10% IN WATER 250 ML) 250 ML ASDIR PRN IV Glucagon (GLUCAGON) 1 MG ASDIR PRN IM Hydralazine HCl (APRESOLINE) 10 MG Q6H PRN PRN IV Famotidine (PEPCID) 10 MG DAILY PO Enoxaparin Sodium (lovENOX) 30 MG Q24H SUBQ Ondansetron HCl (ZOFRAN) 4 MG Q4H PRN PRN IV Aspirin (ASPIRIN CHEWABLE) 324 MG X1ED STA PO (DC) Physical Exam General appearance: alert, awake Head/eyes: atraumatic, normocephalic Cardiovascular: regular rate and rhythm Respiratory: clear to auscultation Abdomen: soft Extremities: normal inspection Neuro/TELEGRAPH EDITOR: alert, normal speech Results Interpretation I independently reviewed the [ ] and my interpretation is [ ] Diagnosis, Assessment Plan Problem List/A P: 1. NSTEMI (non-ST elevated myocardial infarction) 2. Head injury Free Text DxA P Notes Free text DxA P notes: NSTEMI LESTER Hypertension DM 2 Hyperlipidemia Plan: His renal function abnormality is deemed due to ischemic atn. His serum cr is elevated at 2.4 today. work up of syncope in pipeline. we will follow his clinical course closely. we will continue started IV hydration. we will avoid nephrotoxins and dose meds for eGFR. at 1155 RPT #: [id number] END OF REPORT [facility] 2022-10-26 10:59:00 [facility] ([facility]) Hospitalist History Physical REPORT#:[id number] REPORT STATUS: Signed DATE:10/26/22 TIME:105 PATIENT: ZAIN GUEVARA UNIT #: [id number] ROOM/BED: [address] : 36 AGE: 87 SEX: M ATTEND: Jessica Ibarra MD ADM AUTHOR: Jessica Ibarra MD * ALL edits or amendments must be made on the electronic/computer document * History of Present Illness HPI Chief complaint: Syncope PCP: PCP: Undefined Provider HPI: Mr. Guevara is a 87-year-old male with a history of diabetes mellitus, prostate cancer, coronary artery disease who presented to the hospital after an unwitnessed syncope. Patient reported feeling weak while grilling outside. He subsequently passed out for unknown period of time. Patient denied any bowel or urine incontinence. Denied any tongue biting. Patient denied any chest pain, cough or shortness of breath. His symptoms are since resolved. Informant/historian: patient, referring physician History Past Medical Surgical Hx Additional medical history: Hypertension Coronary artery disease Prostate cancer Diabetes mellitus CKD 3 Monoclonal gammopathy Hyperlipidemia Additional surgical history: Prostatectomy Family History Family history: Reports: Hypertension. Social History Alcohol use: Denies EtOH use Drug use: Denies recreational drugs Smoking status for patients 13 years old or older: Never Smoker Medication/Allergy-Vaccine Hx Medications: Home Medications: ASPIRIN EC (ECOTRIN) 81 MG PO DAILY CHOLECALCIFEROL (VITAMIN D3) (VITAMIN D3) 400 UNITS PO DAILY DOXAZOSIN (CARDURA) 2 MG PO DAILY EZETIMIBE (ZETIA) 10 MG PO DAILY GEMFIBROZIL (LOPID) 0.5 TAB PO DAILY INSULIN GLARGINE (LANTUS) 50 UNITS SUBQ BEDTIME LOSARTAN (COZAAR) 50 MG PO DAILY Allergies: Coded Allergies: No Known Allergies (10/25/22) Review of Systems All systems rev neg: except as noted OBJECTIVE VS/I O: Vital Signs Date Temp Pulse Resp B/P B/P Mean Pulse Ox FiO2 10/25-10/26 97.7-98.6 65-85 15-20 124-167/64-76 84-106 97-99 Last Documented: Result Date Time Pulse Ox 97 10/26 722 B/P 137/65 10/26 722 B/P Mean 89.0 10/26 722 O2 Delivery Room air 10/26 722 Temp 97.7 10/26 722 Pulse 68 10/26 722 Resp 15 10/26 722 24 hour I O ending at 0700: 10/26 0700 10/25 1900 Intake Total 150 Output Total 360 Balance -210 Intake, Oral 150 Output, Urine 360 Patient 80.4 kg Weight Weight Bed scale Measurement Method Patient Weight and BMI Weight (kg): 80.400 BMI: 29.5 Medications: Active Meds + DC'd Last 24 Hrs Famotidine (PEPCID) 10 MG DAILY PO Enoxaparin Sodium (lovENOX) 30 MG Q24H SUBQ Ondansetron HCl (ZOFRAN) 4 MG Q4H PRN PRN IV Aspirin (ASPIRIN CHEWABLE) 324 MG X1ED STA PO (DC) General appearance: alert, awake Head/Eyes: atraumatic, clear cornea, EOMI, normal conjunctiva/sclera, normal eyelids/periorb., normocephalic, PERRL ENT: normal dentition, normal ear left, normal ear right, normal nose, normal pharynx, normal sinus Neck: full range of motion, non-tender, normal thyroid, supple/no meningismus, no bruit/NL carotids, no JVD, no masses or swelling Cardiovascular: normal capillary refill, normal heart sounds Respiratory: clear to auscultation, no distress Abdomen: non-tender, normal bowel sounds, soft, no distention, no guarding, no hernia, no mass/organomegaly, no rebound Extremities: moves all, normal capillary refill, normal range of motion, no edema Musculoskeletal: normal inspection, painless range of motion Neuro/TELEGRAPH EDITOR: alert, oriented X 3 Skin: dry, intact Psychiatry: normal affect, normal judgment/insight, normal mood, not homicidal, not suicidal Results Findings/Data: Laboratory Tests: 10/26 10/25 10/25 0417 2217 1944 Chemistry Troponin I High Sens (0 - 78 ng/L) 194.6 *H Hematology WBC (3.5 - 11.0 K/mm3) 4.4 4.6 RBC (4.70 - 6.10 M/mm3) 3.72 L 3.49 L Hgb (12.3 - 15.9 G/DL) 9.9 L 9.4 L Hct (35.8 - 46.7 %) 28.6 L 27.6 L MCV (86.3 - 98.9 Fl) 76.9 L 79.1 L MCH (28.9 - 34.4 pg) 26.6 L 26.9 L MCHC (32.1 - 34.5 G/DL) 34.6 H 34.1 RDW (11.5 - 14.5 SD) 14.2 14.3 Plt Count (150 - 450 K/mm3) 243 171 MPV (7.0 - 9.6 fL) 10.30 H 10.50 H Neut % (Auto) (40 - 76 %) 47.2 58.4 Lymph % (Auto) (20.5 - 51.1 %) 28.5 26.6 [place] % (Auto) (1.7 - 9.3 %) 14.7 H 10.7 H Eos % (Auto) (0.0 - 6.0 %) 8.6 H 3.9 Baso % (Auto) (0.0 - 2.0 %) 0.5 0.2 Neut # (Auto) (1.8 - 7.6 K/mm3) 2.1 2.7 Lymph # (Auto) (0.6 - 3.0 K/mm3) 1.3 1.2 [place] # (Auto) (0.2 - 1.5 K/mm3) 0.7 0.5 Eos # (Auto) (0.0 - 0.4 K/mm3) 0.4 0.2 Baso # (Auto) (0.0 - 0.2 K/mm3) 0.0 0.0 Abs Immat Gran (auto) (0.00 - 0.03 x10 3/uL) 0.02 0.01 Add Manual Diff (CRITERIA DIFF/SCN) NO NO Immature Gran % (0.0 - 5.0 %) 0.5 0.2 Nucleated RBC % (0.0 - 1.0 /100WBC%) 0.0 0.0 10/25 1944 1734 Chemistry Sodium (134 - 147 mmol/L) 140 Potassium (3.4 - 5.0 mmol/L) 5.0 Chloride (100 - 108 mmol/L) 111 H Carbon Dioxide (21 - 32 mmol/L) 18 L Anion Gap (4.0 - 15.0 GAP calc) 11.0 BUN (7 - 18 MG/DL) 38 H Creatinine (0.8 - 1.3 MG/DL) 2.7 H Glomerular Filtr Rate (>60 estGFR) 22 L Glucose (70 - 110 MG/DL) 129 H Calcium (8.5 - 10.1 MG/DL) 9.2 Total Creatine Kinase (26 - 192 Unit/L) 301 H Troponin I High Sens (0 - 78 ng/L) 155.2 *H Laboratory Tests 10/26/22 0417: [Embedded Image Not Available] 10/25/22 2217: [Embedded Image Not Available] 10/25/22 1944: [Embedded Image Not Available] Radiology data: Recent Impressions: CAT SCAN - CT C-SPINE W/O CONT 10/25 1821 Report Impression - Status: SIGNED Entered: 10/25/20221901 IMPRESSION: 1. No evidence of acute intracranial pathology. 2. 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 3. No acute cervical spine fracture or traumatic malalignment. 4. Biapical nodular interstitial prominence concerning for pneumonitis. Consider dedicated chest radiograph or CT chest evaluation. Impression By: Ansley Dai M.D. CAT SCAN - CT HEAD/BRAIN W/O CONT 10/25 1821 Report Impression - Status: SIGNED Entered: 10/25/20221901 IMPRESSION: 1. No evidence of acute intracranial pathology. 2. 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 3. No acute cervical spine fracture or traumatic malalignment. 4. Biapical nodular interstitial prominence concerning for pneumonitis. Consider dedicated chest radiograph or CT chest evaluation. Impression By: Ansley Dai M.D. Diagnosis, Assessment Plan Free Text A P: Mr. Guevara is a 87-year-old male who presented to the hospital after syncope. #Syncope #LESTER on CKD #Diabetes mellitus #Elevated troponin #Mild rhabdomyolysis #Chronic microcytic anemia #Rule out pneumonitis #Elevated troponin -CT head, CT cervical spine noted. -Orthostatic vital signs. Echocardiogram. Carotid Doppler studies. -IV hydration. Trend creatinine. Avoid nephrotoxin. Consult payable processor. -FOBT. Check iron studies given microcytic anemia. -Continue IV hydration given the mild rhabdomyolysis. -BG ACHS and cover with insulin sliding scale. -CT chest ordered to rule out pneumonitis due to findings on CT cervical spine. -Patient denies any chest pain. Elevated troponin multifactorial given poor renal clearance versus type II AL. DVT prophylaxis-SCD Patient is full code. Plan discussed with: patient Resuscitation discussion: Discussed with: patient Code status: full code at 1653 RPT #: [id number] END OF REPORT [facility] 2022-10-25 22:30:00 [place] [id number] PATIENT NAME: ZAIN GUEVARA ADMIT DATE: 10/25/22 ACCOUNT NO: [id number] ROOM NO: [facility] AGE: 87 REPORT TYPE: eELECTROCARDIOGRAM SEX: M ADMITTING PHYSICIAN: Jessica Ibarra MD ATTENDING PHYSICIAN: Jessica Ibarra MD Order: [id number] Test Reason : NSTEMI Test Date/Time Stamp: MonOct 25 2022 22:30:38 Blood Pressure : / mmHG Vent. Rate : 080 BPM Atrial Rate : 080 BPM P-R Int : 208 ms QRS Dur : 078 ms QT Int : 386 ms P-R-T Axes : 052 -22 -11 degrees QTc Int : 445 ms Normal sinus rhythm Minimal voltage criteria for LVH, may be normal variant ( R in aVL ) ST elevation, consider lateral injury or acute infarct ACUTE AL / STEMI Abnormal ECG When compared with ECG of 25-OCT-2022 22:04, (Unconfirmed) Previous ECG has undetermined rhythm, needs review Confirmed by DAVID ESPARZA ([id number]) on 10/31/2022 6:19:38 AM Referred By: Self Referred Confirmed by:DAVID ESPARZA at 0619 PATIENT NAME: ZAIN GUEVARA [facility] 2022-10-25 19:49:00 [id number] [address] PATIENT NAME: ZAIN GUEVARA ADMIT DATE: 10/25/22 ACCOUNT NO: [id number] ROOM NO: [facility] AGE: 87 REPORT TYPE: eELECTROCARDIOGRAM SEX: M ADMITTING PHYSICIAN: Jessica Ibarra MD ATTENDING PHYSICIAN: Jessica Ibarra MD Order: [id number] Test Reason : CP Test Date/Time Stamp: MonOct 25 2022 19:49:01 Blood Pressure : 147/069 mmHG Vent. Rate : 080 BPM Atrial Rate : 080 BPM P-R Int : 246 ms QRS Dur : 080 ms QT Int : 384 ms P-R-T Axes : 058 -35 019 degrees QTc Int : 442 ms Sinus rhythm with 1st degree AV block with occasional premature ventricular complexes Left axis deviation Abnormal ECG When compared with ECG of 25-OCT-2022 17:16, (Unconfirmed) No significant change was found Confirmed by DAVID ESPARZA ([id number]) on 10/31/2022 6:18:53 AM Referred By: Self Referred Confirmed by:DAVID ESPARZA at 0618 PATIENT NAME: ZAIN GUEVARA [facility] 2022-10-25 17:55:00 [facility] ([facility]) EMERGENCY PROVIDER REPORT REPORT#:[id number] REPORT STATUS: Signed DATE:10/25/22 TIME:175 PATIENT: ZAIN GUEVARA UNIT #: [id number] ROOM/BED: [place] [id number] : 36 AGE: 87 SEX: M PCP PHYS: Undefined Provider SERVICE AUTHOR: Jason Mathews MD * ALL edits or amendments must be made on the electronic/computer document * See Addendum HPI-Chest Pain 40 and Over General Confirmed Patient Yes Initial Greet Date/Time 10/25/22 1703 Presentation Chief Complaint Syncope Hx Obtained From Patient, Daughter, EMS Independent Hx Due to Age of patient Sudden in Onset? No )( Migration/Movement None Free Text HPI Notes Free Text HPI Notes 87-year-old male on aspirin, past medical history of hyperlipidemia, diabetes CKD stage III, diabetes, hypertension, prostate cancer, monoclonal gammopathy. Patient was transferred here because of syncope with elevated troponin. Patient states he felt baseline, he was outside grilling, he felt weak and he fell down. Work-up notable for creatinine of 3.19, mildly elevated troponin, high- sensitivity, 97.8, normal BNP, trivially elevated lipase, normal transaminases, CT head with no acute findings negative CT C-spine negative chest x-ray. ------- External records reviewed by me: prior outside hospital ER notes. Information about patient's comorbidities and daily medications learned (as at least in part detailed above), which factored into medical decision making for today's visit. Risk-Chest Pain 40 and Over Risk Stratification )( Coronary Artery Disease Risk factors reviewed )( Thoracic Aortic Dissection Risk factors reviewed )( Pulmonary Embolism Risk factors reviewed )( AMI-Aspirin Aspirin Last 24 Hrs 324 mg )( HEART for MACE )( HEART for MACE Response Value History Low index of suspicion 0 ECG Interpretation Nonspec repol disturb 1 Age Age 65 or over 2 Risk Factors for CAD 3+ CAD risk factors 2 Troponin 1 to 3x NL troponin 1 Total 6 Past Medical History - Adult Stated Complaint ACUTE CORONARY SYNDROME, SYNCOPE Allergies Coded Allergies: No Known Allergies (10/25/22) Review of Nursing Notes Rev avail, and agree Smoking status for patients 13 years old or older: Never Smoker Physical Exam Vital Signs Vital Signs First Documented: Result Date Time Pulse Ox 99 07/ 1703 B/P 144/76 07/ 1703 B/P Mean 98 07/04 1703 O2 Delivery Room air 07/ 1703 Temp 36.8 07/ 1703 Pulse 85 07/ 1703 Resp 17 07/ 1703 Last Documented: Result Date Time Pulse Ox 98 / 191 B/P 167/76 07/ 1913 B/P Mean 106 07/ 1913 O2 Delivery Room air 10/25 1912 Pulse 82 07/ 1913 Resp 20 07/ 1913 Temp 36.8 07/04 1703 Review of Vital Signs Reviewed Free Text PE Notes Free Text PE Notes Cardiac: Normal S1, S2, 2+ pulses in all 4 extremities No evidence of acute DVT General: awake and alert, not toxic appearing, no acute distress Head: normocephalic, no acute traumatic abnormalities Pulmonary: no respiratory distress, CTAB, no stridor Abdomen: soft, NTND, no peritoneal findings Neuro: No aphasia or appreciable change in cognitive function. Appropriate mental status. Normal sensation and 5/5 strength in bilateral upper and lower extremities. CN II-XII normal. No difficulties with finger to nose or rapid alternating hand movements bilaterally. Extremities: no acute deformities, appropriate ROM Skin: no acute appearing rashes, well perfused Interpretation Diagnostics Lab Results Interpretation Results Laboratory Tests: 10/25 1733 Chemistry Troponin I High Sens (0 - 78 ng/L) 155.2 *H Recent Impressions: CAT SCAN - CT C-SPINE W/O CONT 10/25 1821 Report Impression - Status: SIGNED Entered: 10/25/20221901 IMPRESSION: 1. No evidence of acute intracranial pathology. 2. 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 3. No acute cervical spine fracture or traumatic malalignment. 4. Biapical nodular interstitial prominence concerning for pneumonitis. Consider dedicated chest radiograph or CT chest evaluation. Impression By: Ansley Dai M.D. CAT SCAN - CT HEAD/BRAIN W/O CONT 10/25 1821 Report Impression - Status: SIGNED Entered: 10/25/20221901 IMPRESSION: 1. No evidence of acute intracranial pathology. 2. 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 3. No acute cervical spine fracture or traumatic malalignment. 4. Biapical nodular interstitial prominence concerning for pneumonitis. Consider dedicated chest radiograph or CT chest evaluation. Impression By: Ansley Dai M.D. ECG #1 Interpretation Text/Dict Note EKG independently reviewed and interpreted by me and performed on October 25, 2022 , at 5:16 PM. Normal sinus rhythm at a rate of 85, no STEMI, adequate tracing, first-degree AV block. Positive PVC Re-Evaluation MDM Re-Evaluation/Progress #1 Text/Dict Note Additional reevaluation(s) were performed but not documented. Patient had mechanical fall here. No syncope. No evidence of injury. Negative imaging Time of Re-Eval 1914 Re-Eval Status Improved ED Course Medication(s) Ordered Medication(s) Ordered: Central Nervous System Agents Sig/Reanna Start time Last Medication Dose Route Stop Time Status Admin Aspirin 324 MG X1ED STA 10/26 1911 DC PO 10/25 1912 Differential Diagnosis )( Differential Diagnosis Acute coronary syndrome Free Text MDM Notes Free Text MDM Notes Differential diagnosis includes but is not limited to the following diagnoses - Skull and/or facial fracture, dental fracture - Intracranial hemorrhage, cerebral contusion, diffuse axonal injury - Cervical spine fracture, cervical artery dissection/injury, central cord syndrome - Soft tissue neck injury, eye injury - Abrasion, laceration, contusion - Dangerous medical etiology of trauma Patient here with clinical picture most consistent with NSTEMI and severe unclear etiology no chest pain, no shortness of breath, no hypoxia, no hypotension, no tachypnea. Low risk for PE. Imaging results independently reviewed and interpreted by me: none ------- Qualified Health Professional: I discussed the case with the hospitalist. They agree with plan and admission to the floor on telemetry. Patient Discharge Departure Vital Signs/Condition Vital Signs First Documented: Result Date Time Pulse Ox 99 10/25 1702 B/P 144/76 / 1703 B/P Mean 98 10/253 O2 Delivery Room air 10/25 1702 Temp 36.8 10/25 1702 Pulse 85 07/ 1703 Resp 17 / 1703 Last Documented: Result Date Time Pulse Ox 98 10/25 1912 B/P 167/76 10/25 1912 B/P Mean 106 10/25 1912 O2 Delivery Room air 10/25 1912 Pulse 82 10/25 1912 Resp 20 10/25 1912 Temp 36.8 10/25 1703 All vital signs available at the time of this entry have been reviewed. Clinical Impression Clinical Impression Primary Impression: NSTEMI (non-ST elevated myocardial infarction) Secondary Impressions: Head injury Disposition Decision Hospitalize Hosp Physician Name Jessica Ibarra MD [facility] Physician Hospitalist Request Time 1916 Request Date 10/25/22 )( Accepts Hospitalization Yes )( Reason for Hospitalization NSTEMI )( Accepted Time 1916 )( Accepted Date 10/25/22 Call Information will see patient, agrees with eval, agrees with plan Discharge/Care Plan Counseled Regarding Diagnosis, Lab results, Imaging studies, Need for admission Quality Measures Minor Blunt Head Trauma CT Age 65 or older at 1918 Addendum 1: 10/25/221919 by Jason Mathews MD Patient Addendum Addendum Also of note, CT done not for syncope, but for head trauma at 1920 Addendum 2: 10/25/221955 by Junito Rivas MD Patient Addendum Addendum -- Independent EKG INTERPRETATION by Dr Junito Rivas MD Time at Intrepretation:750 Rhythm: Normal Sinus Segments: Normal appeareance Rate: normal QRS: normal QTC: normal Interpretation: - NSR - No characterstics concerning for ischemia -- at 1956 RPT #: [id number] END OF REPORT [facility] 2022-10-25 17:16:00 [id number] [facility] [id number] [place] [id number] PATIENT NAME: ZAIN GUEVARA ADMIT DATE: 10/25/22 ACCOUNT NO: [id number] ROOM NO: [facility] AGE: 87 REPORT TYPE: eELECTROCARDIOGRAM SEX: M ADMITTING PHYSICIAN: Jessica Ibarra MD ATTENDING PHYSICIAN: Jessica Ibarra MD Order: [id number] Test Reason : CP Test Date/Time Stamp: MonOct 25 2022 17:16:30 Blood Pressure : 144/076 mmHG Vent. Rate : 085 BPM Atrial Rate : 085 BPM P-R Int : 250 ms QRS Dur : 078 ms QT Int : 380 ms P-R-T Axes : 076 -33 -13 degrees QTc Int : 452 ms Sinus rhythm with 1st degree AV block with occasional premature ventricular complexes Left axis deviation Abnormal ECG No previous ECGs available Confirmed by DAVID ESPARZA ([id number]) on 10/31/2022 6:18:42 AM Referred By: Self Referred Confirmed by:DAVID ESPARZA at 0618 PATIENT NAME: ZAIN GUEVARA [facility]
[2023-12-01 16:51] LABS: Specific Gravity 1.016 (1.005-1.030); Sqamous Epithelial None Seen /HPF (None Seen); Urine Bacteria None Seen /HPF (<20); Urine Bilirubin NEGATIVE (Negative); Urine Blood 3+ (OVER) (Negative); Urine Clarity Extremely Turbid (Clear); Urine Color Dark-Brown (Yellow); Urine Culture Reflex Order NOT NEEDED; Urine Glucose NEGATIVE (Negative); Urine Ketones NEGATIVE (Negative); Urine Micro Reflex YN NO BILL MICROSCOPIC; Urine Nitrite NEGATIVE (Negative); Urine Protein 2+ (Negative); Urine RBC >50 /HPF (None Seen); Urine Urobilinogen Normal (Normal)
[2023-12-01 18:23] LABS: Absolute Eosinophils 0.3 K/uL (0-0.5); Absolute Lymphocytes (CBC) 1.1 K/uL (0.7-4.9); Absolute Monocytes 0.5 K/uL (0.1-1.3); Absolute Neutrophil 2.5 K/uL (1.8-8.0); Basophils % 0.9 % (0-1.3); Eosinophils % 5.8 % (0-4.4); Hematocrit 31.5 % (39.6-49.0); Hemoglobin 10.4 g/dL (13.6-17.9); MCH 26.9 pg (27.0-35.0); MCHC 33.2 g/dL (32.0-36.0); MCV 81.1 fL (80-100); MPV 8.4 fL (7.6-11.3); Monocytes % 12.3 % (3.3-12.3); Nucleated Red Blood Cells % 0.2 % (0-0); Platelets 270 thou/uL (152-406); RBC Red Blood Cell Count 3.88 M/uL (4.33-5.43); Red Cell Distribution Width 15.2 % (12.1-15.2)
[2023-12-01 18:48] LABS: Albumin 3.4 g/dL (3.4-5.0); Albumin/Globulin Ratio 0.7 (1.1-1.8); Anion Gap 11.7 mEq/L (5.0-15.0); Bilirubin Total 0.2 mg/dL (0.2-1.0); Globulin 5.1 g/dL (2.3-3.5); Potassium 4.7 mEq/L (3.5-5.1); Protein, Total 8.5 g/dL (6.4-8.2)
[2023-12-01] MEDS ORDERED: CEFTRIAXONE 1000 MG/VIAL ONE (19:33)
[2023-12-01] MEDS ORDERED: NA CHLORIDE 0.9% 50 ML ONE (19:34)
[2023-12-01] MEDS ORDERED: NA CHLORIDE 0.9% 1,000 ML ONE (19:34)
--- NOTE | 2023-12-01 20:30 | RAD REPORT ---
EXAM DESCRIPTION: CT - Abdomen Pelvis Wo Contrast - 12/01/2023 8:19 pm CLINICAL HISTORY: Abdominal pain. hematuria, elevated creatinine COMPARISON: <Comparisons> TECHNIQUE: CT imaging of the abdomen and pelvis was performed without contrast. Solid organ, bowel a nd vascular assessment is limited due to lack of IV and oral contrast. All CT scans are performed using dose optimization technique as appropriate and may include automated exposure control or mA/KV adjustment according to patient size. FINDINGS: The lower lung donnelly are clear. The liver, spleen, pancreas, adrenal glands and kidneys are within normal limits for a limited non-co ntrast examination.Aortoiliac atherosclerosis. No bowel obstruction, free air, free fluid or abscess. There is a 3 cm rounded structure in the right lower quadrant. This is nonspecific. Right lower quadrant catheter tubing. The appendix is normal. The osseous structures are within normal limits. IMPRESSION: No acute intra-abdominal or pelvic findings. A limited non-contrast examination was performed as detailed.
--- NOTE | 2023-12-01 20:42 | EDPHYS ---
Physician Documentation [facility] Name: Zain Valdes Age: 88 yrs Sex: Male : 1935 Arrival Date: 12/01/2023 Time: 15:39 Bed 2 Private MD: ED Physician Jimmy Buenrostro HPI: 11/30 16:10 This 88 yrs old Black Male presents to ER via Ambulatory with complaints of Urinary rt Problem - Blood in urine. 16:10 Patient presents to the ED with hematuria starting last night. States that he is able rt empty his bladder, denies any pain. Denies other acute complaints at this time, symptoms are mild in severity, no other aggravating or alleviating factors.. Historical: - Allergies: 15:44 No Known Allergies; ll1 - PMHx: 15:44 throat restriction; Hypertensive disorder; Diabetes mellitus; Hypercholesterolemia; ll1 Cerebrovascular accident; Myocardial infarction; - PSHx: 15:44 throat surgery; ll1 - Immunization history:: Adult Immunizations up to date. - Infectious Disease History:: Denies. - Social history:: Smoking status: Patient denies any tobacco usage or history of. - Family history:: not pertinent. ROS: 16:10 Constitutional: Negative for fever, chills, and weight loss, Cardiovascular: Negative rt for chest pain, palpitations, and edema, Respiratory: Negative for shortness of breath, cough, wheezing, and pleuritic chest pain, Abdomen/GI: Negative for abdominal pain, nausea, vomiting, diarrhea, and constipation, MS/Extremity: Negative for injury and deformity, Skin: Negative for injury, rash, and discoloration, Neuro: Negative for headache, weakness, numbness, tingling, and seizure, 16:10 : Positive for hematuria, Negative for Urinary retention, Exam: 16:10 Constitutional: This is a well developed, well nourished patient who is awake, alert, rt and in no acute distress. Head/Face: Normocephalic, atraumatic. Chest/axilla: Normal chest wall appearance and motion. Nontender with no deformity. No lesions are appreciated. Cardiovascular: Regular rate and rhythm with a normal S1 and S2. No gallops, murmurs, or rubs. Normal PMI, no JVD. No pulse deficits. Respiratory: Lungs have equal breath sounds bilaterally, clear to auscultation and percussion. No rales, rhonchi or wheezes noted. No increased work of breathing, no retractions or nasal flaring. Abdomen/GI: Soft, non-tender, with normal bowel sounds. No distension or tympany. No guarding or rebound. No evidence of tenderness throughout. Skin: Warm, dry with normal turgor. Normal color with no rashes, no lesions, and no evidence of cellulitis. MS/ Extremity: Pulses equal, no cyanosis. Neurovascular intact. Full, normal range of motion. Neuro: Awake and alert, GCS 15, oriented to person, place, time, and situation. Cranial nerves II-XII grossly intact. Motor strength 5/5 in all extremities. Sensory grossly intact. Cerebellar exam normal. Normal gait. Vital Signs: 15:46 BP 134 / 63; Pulse 103; Resp 17; Temp 97.4; Pulse Ox 99% ; Weight 74.84 kg; Height 5 ll1 ft. 4 in. ; Pain 0/10; 20:36 BP 165 / 72; Pulse 78; Resp 20; Temp 98.8(O); Pulse Ox 95% ; Pain 0/10; kd4 20:52 BP 148 / 63; Pulse 83; Resp 18; Temp 98.5; Pulse Ox 97% on R/A; Pain 0/10; kd4 15:46 Body Mass Index 28.32 (74.84 kg, 162.56 cm) ll1 15:46 Pain Scale: Adult ll1 20:36 Pain Scale: Adult kd4 20:52 Pain Scale: Adult kd4 [place] Coma Score: 20:52 Eye Response: spontaneous(4). Motor Response: obeys commands(6). Verbal Response: kd4 oriented(5). Total: 15. MDM: 15:50 Patient medically screened. rt 19:53 Differential Diagnosis Cystitis, gross hematuria, kidney stone. Data reviewed: vital rt signs, nurses notes, lab test result(s), radiologic studies. Consideration of Admission/Observation Patient with elevated creatinine, there are no prior labs to compare to. Patient has no other complaints except for hematuria. The patient does report a preexisting history of renal dysfunction, his son is going to get the outpatient records and bring them back to compare. Will obtain CT scan, give patient fluids, antibiotics, should the patient have worsening renal function compared to baseline plan to admit to the hospital, otherwise, he may follow-up with urology as an outpatient.. I considered the following discharge prescriptions or medication management in the emergency department Medications were administered in the Emergency Department. See MAR. Care significantly affected by the following chronic conditions: Chronic Kidney Disease. Counseling: I had a detailed discussion with the patient and/or guardian regarding the historical points, exam findings, and any diagnostic results supporting the discharge/admit diagnosis, lab results. 20:07 ED course: Patient signed out to me by previous physician, in brief patient arrives ec2 today for hematuria, found to have low dysfunction with creatinine of 3.X. Plan is follow-up CT image and reassess. Possible discharge versus admit. 20:41 ED course: CT imaging shows no acute intra-abdominal process. Family brought external ec2 paperwork which showed creatinine ranged from 2-2.5 over the past couple years from 20 21-20 23. Today is not significantly different, previous GFR is ranging 20-30 and today at 19. Will discharge home with antibiotics. I instructed them on continued fluid resuscitation and follow-up with primary care to obtain repeat lab work. Return precautions given. 11/30 15:57 Order name: CBC with Diff; Complete Time: 18:40 rt 11/30 15:57 Order name: CMP; Complete Time: 19:00 rt 11/30 15:57 Order name: UAM; Complete Time: 17:20 rt 08 19:17 Order name: CT Abd/Pelvis - Without Contrast; Complete Time: 20:32 rt Administered Medications: 19:59 Drug: NS 0.9% IV 1000 ml IV at 1 bolus Per protocol; 1000 mL bolus Route: IV; Rate: 1 kd4 bolus; Site: right hand; 20:56 Follow up: Response: No adverse reaction kd4 20:56 Follow up: IV Status: Completed infusion kd4 19:59 Drug: Rocephin - Rocephin (cefTRIAXone) IVPB 1 grams IVPB once over 30 mins; (mix in 50 kd4 mL NS) Route: IVPB; Rate: 100 ml/hr; Infused Over: 30 mins; Site: right hand; 20:56 Follow up: Response: No adverse reaction kd4 20:56 Follow up: IV Status: Completed infusion kd4 Disposition Summary: 12/01/23 20:42 Discharge Ordered Notes: Location: Home ec2 Problem: new ec2 Symptoms: have improved ec2 Condition: Stable ec2 Diagnosis - Gross hematuria ec2 - Cystitis, unspecified with hematuria ec2 Followup: rt - With: Private Physician - When: 2 - 3 days - Reason: Discharge Instructions: - Discharge Summary Sheet rt - Hematuria, Adult rt - Urinary Tract Infection, Adult rt Forms: - Medication Reconciliation Form ec2 - Antibiotic Education ec2 - Prescription Opioid Use ec2 - Patient Portal Instructions ec2 - Leadership Thank You Letter ec2 Prescriptions: - cefpodoxime 200 mg Oral tablet - take 1 tablet ORAL route every 12 hours with food; 14 tablet; Refills: 0, ec2 Product Selection Permitted Signatures: Dispatcher [employer] Peter Gonzalez RN RN ll1 Shane Davies MD MD rt Jimmy Buenrostro MD MD ec2 Jennie Phan RN RN kd4
--- NOTE | 2023-12-01 20:42 | ER ---
Nurse's Notes [facility] Name: Zain Valdes Age: 88 yrs Sex: Male : 1935 Arrival Date: 12/01/2023 Time: 15:39 Bed 2 Private MD: Diagnosis: Gross hematuria;Cystitis, unspecified with hematuria Presentation: 11/30 15:46 Chief complaint: Patient states: Blood in urine since last night. No pain or fever. ll1 Coronavirus screen: Client denies travel out of the [place] in the last 14 days. At this time, the client does not indicate any symptoms associated with coronavirus-19. Ebola Screen: Patient denies travel to an Ebola-affected area in the 21 days before illness onset. Initial Sepsis Screen: Does the patient meet any 2 criteria? No. Patient's initial sepsis screen is negative. Does the patient have a suspected source of infection? No. Patient's initial sepsis screen is negative. Risk Assessment: Do you want to hurt yourself or someone else? Patient reports no desire to harm self or others. Onset of symptoms was November 30, 2023. 15:46 Method Of Arrival: Ambulatory ll1 15:46 Acuity: YUE 3 ll1 Triage Assessment: 15:46 General: Appears in no apparent distress. Behavior is calm, cooperative, appropriate ll1 for age. Pain: Denies pain. : Urine is thompson blood, Reports bloody urine. Historical: - Allergies: 15:44 No Known Allergies; ll1 - PMHx: 15:44 throat restriction; Hypertensive disorder; Diabetes mellitus; Hypercholesterolemia; ll1 Cerebrovascular accident; Myocardial infarction; - PSHx: 15:44 throat surgery; ll1 - Immunization history:: Adult Immunizations up to date. - Infectious Disease History:: Denies. - Social history:: Smoking status: Patient denies any tobacco usage or history of. - Family history:: not pertinent. Screenin:26 [facility] ED Fall Risk Assessment (Adult) History of falling in the last 3 months, db including since admission No falls in past 3 months (0 pts) Confusion or Disorientation No (0 pts) Intoxicated or Sedated No (0 pts) Impaired Gait No (0 pts) Mobility Assist Device Used No (0 pt) Altered Elimination No (0 pt) Score/Fall Risk Level 0 - 2 = Low Risk Oriented to surroundings, Maintained a safe environment. Abuse screen: Denies threats or abuse. Denies injuries from another. Nutritional screening: On. Nutritional screening: No deficits noted. Tuberculosis screening: No symptoms or risk factors identified. Assessment: 16:30 Reassessment: No changes from previously documented assessment. Patient and/or family ll1 updated on plan of care and expected duration. Pain level reassessed. 17:30 Reassessment: No changes from previously documented assessment. Patient and/or family ll1 updated on plan of care and expected duration. Pain level reassessed. 18:26 Reassessment: Patient appears in no apparent distress at this time. Patient and/or db family updated on plan of care and expected duration. Pain level reassessed. Patient is alert, oriented x 3, equal unlabored respirations, skin warm/dry/pink. blood IN URINE. General: Appears in no apparent distress. comfortable, Behavior is calm, cooperative. Pain: Denies pain. Neuro: Level of Consciousness is awake, alert, obeys commands, Oriented to person, place, time. Respiratory: Airway is patent Respiratory effort is even, unlabored, Respiratory pattern is regular, symmetrical. : Reports BLOOD IN URINE. 21:03 General: patient a/o x 4, ambulate with steady gait, family with patient. prescription kd4 given to patient, both patient and family verbalizes understanding of instruction.. Vital Signs: 15:46 BP 134 / 63; Pulse 103; Resp 17; Temp 97.4; Pulse Ox 99% ; Weight 74.84 kg; Height 5 ll1 ft. 4 in. ; Pain 0/10; 20:36 BP 165 / 72; Pulse 78; Resp 20; Temp 98.8(O); Pulse Ox 95% ; Pain 0/10; kd4 20:52 BP 148 / 63; Pulse 83; Resp 18; Temp 98.5; Pulse Ox 97% on R/A; Pain 0/10; kd4 15:46 Body Mass Index 28.32 (74.84 kg, 162.56 cm) ll1 15:46 Pain Scale: Adult ll1 20:36 Pain Scale: Adult kd4 20:52 Pain Scale: Adult kd4 [place] Coma Score: 20:52 Eye Response: spontaneous(4). Motor Response: obeys commands(6). Verbal Response: kd4 oriented(5). Total: 15. ED Course: 15:41 Patient arrived in ED. ra3 15:41 Shane Davies MD is Attending Physician. rt 15:47 Triage completed. ll1 16:30 UAM Sent. hb 16:57 Arm band placed on Patient placed in an exam room, on a stretcher. ll1 17:04 Keya Adair, RN is Primary Nurse. db 18:04 Initial lab(s) drawn, by me, sent to lab. Missed attempt(s): 22 gauge in left db antecubital area. Bleeding controlled, band aid applied, catheter tip intact. 19:30 Patient has correct armband on for positive identification. Bed in low position. Call kd4 light in reach. Side rails up X 1. 19:30 Provided Education on: d/c instruction. kd4 20:00 No provider procedures requiring assistance completed. Inserted saline lock: 22 gauge kd4 in right hand, using aseptic technique. 20:02 Attending Physician role handed off by Shane Davies MD ec2 20:02 Jimmy Buenrostro MD is Attending Physician. ec2 20:20 CT Abd/Pelvis - Without Contrast In Process Unspecified. EDMS 20:57 IV discontinued. kd4 Administered Medications: 19:59 Drug: NS 0.9% IV 1000 ml IV at 1 bolus Per protocol; 1000 mL bolus Route: IV; Rate: 1 kd4 bolus; Site: right hand; 20:56 Follow up: Response: No adverse reaction kd4 20:56 Follow up: IV Status: Completed infusion kd4 19:59 Drug: Rocephin - Rocephin (cefTRIAXone) IVPB 1 grams IVPB once over 30 mins; (mix in 50 kd4 mL NS) Route: IVPB; Rate: 100 ml/hr; Infused Over: 30 mins; Site: right hand; 20:56 Follow up: Response: No adverse reaction kd4 20:56 Follow up: IV Status: Completed infusion kd4 Medication: 19:08 VIS not applicable for this client. db Outcome: 20:42 Discharge ordered by . ec2 20:57 Discharged to home ambulatory, kd4 20:57 Condition: good 20:57 Discharge instructions given to patient, family, Instructed on discharge instructions, follow up and referral plans. Demonstrated understanding of instructions, follow-up care, medications, Prescriptions given X 1, 21:06 Patient left the ED. kd4 Signatures: Dispatcher [employer] Hannah Andrade, RN Peter Mcdowell RN RN ll1 Keya Adair, RN RN db Shane Davies MD MD rt Jimmy Buenrostro MD MD 2 Georgie De Luna ra3 Jennie Phan RN RN kd4
[2023-12-01 21:26] VITALS: BP 148/63; TEMP 98.5; O2SAT 97
== END 2023-12-01 21:06 | disposition home or self-care (01) ==
LOC: ER 15:39
DX: N30.91 Cystitis, unspecified with hematuria (principal)
CPT/HCPCS: 96365; 85025; 81001; 36415; 80053; 74176; 99284; J7030; J0696